=== PATIENT | female | born 1940 | race Caucasian/White ===

== ENCOUNTER → 2016-05-18 | Outpatient (CLI) | payer OTHER, MEDICARE ==
[~2016-05-18] MED LIST: AMLO-114 PO; ASPEC81 PO; ASPI1TAB48 PO; ASPI81TA28 PO; CALC500C70 PO; CARV3.12 PO; CARV3.122 PO; CHOL100010 PO; CHOL1TAB42 PO; DOCU100T7 PO; FLUO20CA35 PO; FURO-85 PO; GLCSR750 PO; LOSA1TAB PO; LSX10 PO; METF750T PO; MULT-506 PO; POTA10CA28 PO; POTA10TA30 PO; SIMV20TA2 PO; SOLI10TA2 PO
[2016-05-18 12:54] LABS: ESTIMATED AVERAGE GLUCOSE 163 mg/dl; HA1C FLAG Normal (Normal)
[2016-05-18 12:56] LABS: BLOOD UREA NITROGEN 11 mg/dl (7-18); BUN/CREATININE RATIO 14.5 (10-20); CALCIUM 9.4 mg/dl (8.5-10.1); CARBON DIOXIDE 31 mmol/L (21-32); CHLORIDE 107 mmol/L (98-107); CREATININE 0.73 mg/dl (0.60-1.20); GLUCOSE 141 mg/dl (70-99); POTASSIUM 4.3 mmol/L (3.5-5.1); SODIUM 144 mmol/L (136-145)
[2016-05-18 13:01] LABS: CHOLESTEROL 169 mg/dl (0-200); CHOLESTEROL/HDL RATIO 2.8; HDL CHOLESTEROL 61 mg/dl; LDL CHOLESTEROL CALCULATED 88 mg/dl; TRIGLYCERIDES 102 mg/dl (0-150); VERY LOW DENSITY LIPOPROT CALC 20 mg/dl
== END | disposition home or self-care (01) ==
LOC: C.LABPVFM 08:05
PROVIDERS: ATTEND Family Medicine
DX: E11.9 Type 2 diabetes mellitus without complications (principal)

== ENCOUNTER → 2016-06-07 | Outpatient (CLI) | payer OTHER, MEDICARE ==
--- NOTE | 2016-06-08 14:34 | MAMMOGRAPHY REPORT ---
BILATERAL DIGITAL SCREENING MAMMOGRAM WITH CAD: 06/07/2016 CLINICAL HISTORY: Routine screening. Patient has no complaints. TECHNIQUE: Bilateral CC and MLO views were obtained. Current study was also evaluated with a Comput er Aided Detection (CAD) system. COMPARISON: Comparison is made to exams dated: 02/12/2009 mammogram, 12/29/2006 mammogram, and 10/13 mammogram. BREAST COMPOSITION: The tissue of both breasts is almost entirely fatty. FINDINGS: A linear scar marker overlies the 12:00 middle one third of the right breast. There are s cattered benign-appearing calcifications in the breasts. No new suspicious mass, architectural dist ortion or cluster of microcalcifications is seen. IMPRESSION: ACR BI-RADS CATEGORY 1: NEGATIVE There is no mammographic evidence of malignancy. A 1 year screening mammogram is recommended. The p atient will receive written notification of the results. Approximately 10% of breast cancers are not detected with mammography. A negative mammographic repor t should not delay biopsy if a clinically suggestive mass is present. Felicia Del Cid M.D. ay/:06/07/2016 17:00:13 Adjunct Faculty Mathematics Department: Pia CHAUDHARY(Erika)(M), [facility] letter sent: Normal 1/2 BI-RADS Code: ACR BI-RADS Category 1: Negative
== END | disposition home or self-care (01) ==
LOC: C.MAMM 13:14
PROVIDERS: ATTEND Family Medicine
DX: Z12.31 Encounter for screening mammogram for malignant neoplasm of breast (principal)

== ENCOUNTER → 2016-10-22 | Outpatient (CLI) | payer OTHER, MEDICARE ==
[~2016-10-22] MED LIST changes: -ASPI81TA28 PO; -CARV3.122 PO; -CHOL1TAB42 PO; -FURO-85 PO; -METF750T PO; -POTA10CA28 PO
[2016-10-22 14:24] LABS: BLOOD UREA NITROGEN 17 mg/dl (7-18); BUN/CREATININE RATIO 22.5 (10-20); CALCIUM 9.2 mg/dl (8.5-10.1); CARBON DIOXIDE 31 mmol/L (21-32); CHLORIDE 105 mmol/L (98-107); CREATININE 0.75 mg/dl (0.60-1.20); GLUCOSE 117 mg/dl (70-99); POTASSIUM 4.6 mmol/L (3.5-5.1); SODIUM 141 mmol/L (136-145)
[2016-10-22 14:25] LABS: ESTIMATED AVERAGE GLUCOSE 148 mg/dl; HA1C FLAG Normal (Normal)
== END | disposition home or self-care (01) ==
LOC: C.LABPVFM 09:48
PROVIDERS: ATTEND Family Medicine
DX: E11.9 Type 2 diabetes mellitus without complications (principal)

== ENCOUNTER 2017-01-06 11:13 | Emergency (ER) | payer OTHER, MEDICARE ==
[2017-01-06] MEDS ORDERED: POTA10CA28 PO (11:42)
[2017-01-06] MEDS ORDERED: CARV3.122 PO (11:42)
[2017-01-06] MEDS ORDERED: AMLO-114 PO (11:42)
[2017-01-06] MEDS ORDERED: SIMV20TA2 PO (11:42)
[2017-01-06] MEDS ORDERED: ASPI81TA28 PO (11:42)
[2017-01-06] MEDS ORDERED: CHOL1TAB42 PO (11:42)
[2017-01-06] MEDS ORDERED: FURO-85 PO (11:42)
[2017-01-06] MEDS ORDERED: METF750T PO (11:42)
[2017-01-06] MEDS ORDERED: HYDROmorphone INJ 2 MG/ML SYR/VIAL IM STA (12:15)
[2017-01-06] MEDS ORDERED: ONDANSETRON 4MG OD TAB PO STA (12:15)
[2017-01-06 12:37] LABS: URINE APPEARANCE CLEAR (CLEAR); URINE BILIRUBIN NEG (NEG); URINE COLOR YELLOW; URINE NITRITE NEG (NEG); URINE SPECIFIC GRAVITY 1.011 (1.000-1.030); UROBILINOGEN NEG (NEG)
[2017-01-06 12:38] LABS: URINE EPITHELIAL CELL AUTO 0-5 /lpf (0-5)
[2017-01-06 12:39] LABS: MANUAL MICROSCOPIC REQUIRED? NO; REVIEW REQ? NO; ZZUR CULT IF INDIC CLEAN CATCH NO
--- NOTE | 2017-01-06 12:41 | EMERGENCY ROOM VISIT NOTE ---
History Report prepared by Ana: Saturnino Carrillo Under the Supervision of: Dr. Dennis Garcia M.D. First contact with patient: 12:08 Chief Complaint: BACK PAIN Stated Complaint: BACK PAIN FROM FALL History of Present Illness The patient is a 76 year old female who presents to the Emergency Room with complaints of worsening left buttock pain beginning two days ago. The patient states she fell two days ago, and hit her back and left buttock. She reports the pain is burning and stabbing. The patient notes she has been taking Excedrin and using patches for pain, but nothing is working. She states she typically ambulates without difficulty using a cane. The patient reports she is not getting around the house, and it hurts to walk. She notes she is nauseous from the discomfort. Source of History: patient Onset: 2 days ago Position: buttock (left) Quality: burning, stabbing Timing: worsening Associated Symptoms: + nausea Note: Associated symptoms: difficultly ambulating Review of Systems See HPI for pertinent positives & negatives. A total of 10 systems reviewed and were otherwise negative. Past Medical & Surgical Medical Problems: (1) Benign essential hypertension (2) Diabetes mellitus (3) Hypercholesterolemia (4) Splenectomy Family History Cancer Heart disease Stroke Social History Smoking Status: Never Smoker Alcohol Use: none Marital Status: Housing Status: lives with family Current/Historical Medications Scheduled Amlodipine (Norvasc), 10 MG PO DAILY Aspirin (Aspirin Ec), 81 MG PO DAILY Carvedilol (Coreg), 2 TABS PO DAILY Cholecalciferol (Vitamin D), 5,000 UNITS PO DAILY Furosemide (Lasix), 20 MG PO BID Metformin Hcl (Glucophage Er), 3,000 MG PO DAILY Potassium Chloride (Micro-K Ext Rel), 10 MEQ PO DAILY Simvastatin (Zocor), 10 MG PO DAILY Allergies Coded Allergies: BEE STING (Unverified Allergy, Intermediate, ., 01/06/17) Physical Exam Vital Signs Date Time Temp Pulse Resp B/P (MAP) Pulse Ox O2 Delivery O2 Flow Rate FiO2 01/06/17 15:37 36.7 56 16 217/73 97 01/06/17 14:57 56 16 217/73 97 Room Air 01/06/17 13:15 55 20 125/48 94 Room Air 01/06/17 11:21 36.7 58 18 151/68 97 Room Air Physical Exam GENERAL: Patient is a healthy-appearing well-nourished 76 year old female. HEAD: Normocephalic atraumatic EYES: Ocular movements intact pupils equal and react to light OROPHARYNX mucous membranes are moist no exudates present no erythema or edema present NECK: Supple no nuchal rigidity CHEST: Good equal expansion LUNGS: Clear and equal to auscultation CARDIAC: Normal S1 and S2 ABDOMEN: Soft nontender no guarding BACK: Tender at the L1 - L2 area. EXTREMITIES: No pain upon palpation normal muscle strength in all groups no clubbing cyanosis or edema NEURO: Patient is following commands and answering questions appropriately. Alert and oriented x3 Cranial Nerves 2-12 grossly intact Medical Decision & Procedures ER Provider Diagnostic Interpretation: Radiology results as stated below per my review and radiologist interpretation: PELVIS NO IV/ORAL CONT (CT) CLINICAL HISTORY: Pt c/o b/l leg pain pain TECHNIQUE: Transaxial acquisition with multi axial reformatted images COMPARISON STUDY: 08/28/2013. Prior total right hip arthroplasty. Good contact between prosthetic and underlying bone. Moderate degenerative change of all remaining osseous structures. No well-defined acute abnormality. Lucency left lateral superior endplate L3 unchanged from the prior exam. This appears be a benign hemangioma. Degenerative change of the intervertebral discs as well as posterior elements throughout. No well-defined acute bony abnormality. The bladder is midline. Bowel pattern is nonobstructive. FINDINGS: Chronic, postoperative, and degenerative change. No acute process. IMPRESSION: The above report was generated using voice recognition software. It may contain grammatical, syntax or spelling errors. Electronically signed by: Ramo Moore M.D. 01/06/2017 1:26 PM Dictated Date/Time: 01/06/2017 1:[address] SCAN OF THE LUMBAR SPINE WITHOUT IV CONTRAST CLINICAL HISTORY: Fall with low back pain. COMPARISON STUDY: Radiographs of the lumbar spine dated 08/18/2010. TECHNIQUE: CT scan of the lumbar spine is performed from the lower thoracic spine to the sacrum. Images are reviewed in the axial, sagittal, and coronal planes. IV contrast was not administered for this examination. A dose lowering technique was utilized adhering to the principles of ALARA. FINDINGS: The skeletal structures are osteopenic. There is a nondistracted fracture partially visualized involving the anterior/inferior aspect of the T11 vertebral body. This is best seen on axial image #9. There is also a minimally distracted fracture of the left L1 transverse process as well as a nondistracted left L2 transverse process fracture. No additional fracture is identified. Vertebral body height and alignment are maintained throughout the lumbar spine. There is lumbar dextrocurvature. A large hemangioma is seen in the body of L3. No lytic or blastic lesions are seen. Advanced facet arthropathy is seen in the lower lumbar region. There are anterior and lateral marginal osteophytes noted throughout. No spondylolysis is identified. The spinous processes are intact. There is advanced degenerative disc space narrowing with endplate sclerosis seen at L3-L4 and L4-L5. Mild to moderate disc space narrowing is seen at the remaining lumbar levels. Posterior disc osteophyte complexes are seen at all levels from T12 -L1 through L4-L5. These likely contribute to multilevel acquired compromise of the central canal. The visualized sacrum and bony pelvis are intact. Degenerative change is noted in the sacroiliac joints. There is fatty atrophy of the paraspinous musculature. Advanced atherosclerotic calcification and mild ectasia is noted in the abdominal aorta. There are left renal calculi versus cortical calcifications. There are healed appearing left posterior rib fractures. IMPRESSION: 1. There is a nondistracted fracture partially visualized involving the anterior/inferior aspect of the T11 vertebral body. 2. There are acute left transverse process fractures of L1 and L2. 3. Osteopenia with lumbosacral spondylosis and scoliosis as above. Electronically signed by: Chad Horan M.D. 01/06/2017 1:34 PM Dictated Date/Time: 01/06/2017 1:21 PM R FEMUR 2 VIEWS ROUTINE CLINICAL HISTORY: Right leg pain following fall. COMPARISON: CT of the abdomen and pelvis September 17, 2014. FINDINGS: Alignment of the total right hip arthroplasty is anatomic. There is heterotopic ossification. There is no acute fracture of the right femur. Hardware is intact. There is no radiographic evidence of loosening. IMPRESSION: 1. No acute fracture of the right femur. 2. Status post total right hip arthroplasty. No periprosthetic fracture. Hardware intact. Electronically signed by: Miguel Fleming M.D. 01/06/2017 1:43 PM Dictated Date/Time: 01/06/2017 1:41 PM L FEMUR 2 VIEWS ROUTINE CLINICAL HISTORY: Pt c/o left leg pain pain COMPARISON: None. DISCUSSION: Moderate degenerative change left hip and left knee. Mild calcific trochanteric bursitis left hip. No evidence for acetabular protrusion. No abnormal depressed reaction. There is no evidence for soft tissue swelling. IMPRESSION: Moderate degenerative change of the left hip and left knee. Moderate calcific trochanteric bursitis left hip. No acute process. The above report was generated using voice recognition software. It may contain grammatical, syntax or spelling errors. Electronically signed by: Ramo Moore M.D. 01/06/2017 1:44 PM Dictated Date/Time: 01/06/2017 1:40 PM THORACIC SPINE WITHOUT CT DOSE: 1204.65 mGy.cm HISTORY: Trauma Pt c/o T11 fracture TECHNIQUE: Multiaxial CT images of the thoracic spine were performed and reformatted in the sagittal and coronal plane without the use of contrast. A dose lowering technique was utilized adhering to the principles of ALARA. COMPARISON: None. FINDINGS: Generalized degenerative disc change throughout the entire thoracic region. Nondisplaced cortical fractures left transverse processes of L1 and L2. Very slight wedge deformity of the anterior inferior endplate T11. No evidence for compromise of the vertebral body height of the posterior aspects of the vertebral bodies. Degenerative changes of the posterior and lateral elements throughout. No additional acute bony abnormalities appreciated. IMPRESSION: 1. Nondisplaced cortical fractures left transverse processes at L1 and L2. 2. Very subtle slight wedge deformity anterior inferior endplate T11. 3. No compromise of the spinal canal or neural foramina 4. Generalized degenerative change throughout the entire thoracic region. The above report was generated using voice recognition software. It may contain grammatical, syntax or spelling errors. Electronically signed by: Ramo Moore M.D. 01/06/2017 2:24 PM Dictated Date/Time: 01/06/2017 2:18 PM Laboratory Results Test 01/06/17 11:55 Urine Color YELLOW Urine Appearance CLEAR (CLEAR) Urine pH 6.0 (4.5-7.5) Urine Specific Emerson 1.011 (1.000-1.030) Urine Protein NEG (NEG) Urine Glucose (UA) NEG (NEG) Urine Ketones NEG (NEG) Urine Occult Blood NEG (NEG) Urine Nitrite NEG (NEG) Urine Bilirubin NEG (NEG) Urine Urobilinogen NEG (NEG) Urine Leukocyte Esterase NEG (NEG) Urine WBC (Auto) 0 /hpf (0-5) Urine RBC (Auto) 0-4 /hpf (0-4) Urine Hyaline Casts (Auto) 0 /lpf (0-5) Urine Epithelial Cells (Auto) 0-5 /lpf (0-5) Urine Bacteria (Auto) NEG (NEG) Labs reviewed by ED physician. Medications Administered Medications (Trade) Dose Ordered Sig/Noble Route Start Time Stop Time Status Last Admin Dose Admin Hydromorphone HCl (Dilaudid Inj) 1 mg NOW STAT IM 01/06/17 12:15 01/06/17 12:21 DC 01/06/17 12:28 1 MG Ondansetron HCl (Zofran Odt) 4 mg ONE STAT PO 01/06/17 12:15 01/06/17 12:21 DC 01/06/17 12:28 4 MG Hydromorphone HCl (Dilaudid Inj) 1 mg NOW STAT IM 01/06/17 14:37 01/06/17 14:38 DC 01/06/17 14:57 1 MG ED Course 1210: Past medical records reviewed. The patient was evaluated in room B11B. A complete history and physical examination was performed. 1215: Ordered Ondansetron HCl 4mg PO, Hydromorphone HCl 1mg IM 1338: I reevaluated the patient. She is feeling better. 1358: I discussed the patient's case with Dr. Bonilla, [facility]. He recommended the patient go to rehab and follow up as an outpatient. Medical Decision Differential diagnosis: Etiologies such as musculoskeletal, disc herniation, fracture, aortic disease, metastatic disease, cord compression, discitis, infection, renal colic, gastrointestinal, acute exacerbation of chronic back pain, sciatica, cauda equina, as well as others were entertained. This is a 76-year-old female who presents emergency department complaining of back pain after a fall at home. The patient was sent for CAT scan of her lumbar spine. This is concerning for fractures at T11 as well as transverse process fractures. The patient was given Dilaudid. Repeat examination revealed improvement patient's pain. I'm concerned that the patient is going to fall again specially based on the fact that she is still having pain. I did discuss her case with [facility] who felt that the patient's symptoms could be controlled with pain control. I did discuss sending the patient to rehabilitation Center. For this reason she was discussed with case management who also talked independently with the patient. The patient was accepted at [facility]. Medication Reconcilliation Current Medication List: was personally reviewed by me Blood Pressure Screening Patient's blood pressure: Elevated blood pressure Blood pressure disposition: Elevated BP felt to be situational Consults Time Called: 1339 Consulting Physician: Dr. Bonilla, [facility] Returned Call: [phone] I discussed the patient's case with Dr. Bonilla, [facility]. He recommended the patient go to rehab and follow up as an outpatient. Impression Primary Impression: Fall Additional Impressions: Fracture of L1 vertebra L3 vertebral fracture T11 vertebral fracture Scribe Attestation The scribe's documentation has been prepared under my direction and personally reviewed by me in its entirety. I confirm that the note above accurately reflects all work, treatment, procedures, and medical decision making performed by me. Departure Information Dispostion Rehab Inpatient Facility Referrals Clement Early M.D. (PCP) Patient Instructions My [facility] Problem Qualifiers Primary Impression: Fall Encounter type: initial encounter Qualified Codes: W19.XXXA - Unspecified fall, initial encounter Additional Impressions: Fracture of L1 vertebra Encounter type: initial encounter Fracture type: closed Fracture morphology : unspecified fracture morphology Qualified Codes: S32.019A - Unspecified fracture of first lumbar vertebra, initial encounter for closed fracture L3 vertebral fracture Encounter type: initial encounter Fracture type: closed Fracture morphology : unspecified fracture morphology Qualified Codes: S32.039A - Unspecified fracture of third lumbar vertebra, initial encounter for closed fracture T11 vertebral fracture Encounter type: initial encounter Fracture type: closed Fracture morphology : wedge compression Qualified Codes: S22.080A - Wedge compression fracture of t11-T12 vertebra, initial encounter for closed fracture
--- NOTE | 2017-01-06 13:28 | DIAGNOSTIC IMAGING REPORT ---
PELVIS NO IV/ORAL CONT (CT) CLINICAL HISTORY: Pt c/o b/l leg pain pain TECHNIQUE: Transaxial acquisition with multi axial reformatted images COMPARISON STUDY: 08/28/2013. Prior total right hip arthroplasty. Good contact between prosthetic and underlying bone. Moderate degenerative change of all remaining osseous structures. No well-defined acute abnormality. Lucency left lateral superior endplate L3 unchanged from the prior exam. This appears be a benign hemangioma. Degenerative change of the intervertebral discs as well as posterior elements throughout. No well-defined acute bony abnormality. The bladder is midline. Bowel pattern is nonobstructive. FINDINGS: Chronic, postoperative, and degenerative change. No acute process. IMPRESSION: The above report was generated using voice recognition software. It may contain grammatical, syntax or spelling errors. Electronically signed by: Ramo Moore M.D. 01/06/2017 1:26 PM Dictated Date/Time: 01/06/2017 1:22 PM
--- NOTE | 2017-01-06 13:36 | DIAGNOSTIC IMAGING REPORT ---
CT SCAN OF THE LUMBAR SPINE WITHOUT IV CONTRAST CLINICAL HISTORY: Fall with low back pain. COMPARISON STUDY: Radiographs of the lumbar spine dated 08/18/2010. TECHNIQUE: CT scan of the lumbar spine is performed from the lower thoracic spine to the sacrum. Images are reviewed in the axial, sagittal, and coronal planes. IV contrast was not administered for this examination. A dose lowering technique was utilized adhering to the principles of ALARA. FINDINGS: The skeletal structures are osteopenic. There is a nondistracted fracture partially visualized involving the anterior/inferior aspect of the T11 vertebral body. This is best seen on axial image #9. There is also a minimally distracted fracture of the left L1 transverse process as well as a nondistracted left L2 transverse process fracture. No additional fracture is identified. Vertebral body height and alignment are maintained throughout the lumbar spine. There is lumbar dextrocurvature. A large hemangioma is seen in the body of L3. No lytic or blastic lesions are seen. Advanced facet arthropathy is seen in the lower lumbar region. There are anterior and lateral marginal osteophytes noted throughout. No spondylolysis is identified. The spinous processes are intact. There is advanced degenerative disc space narrowing with endplate sclerosis seen at L3-L4 and L4-L5. Mild to moderate disc space narrowing is seen at the remaining lumbar levels. Posterior disc osteophyte complexes are seen at all levels from T12 -L1 through L4-L5. These likely contribute to multilevel acquired compromise of the central canal. The visualized sacrum and bony pelvis are intact. Degenerative change is noted in the sacroiliac joints. There is fatty atrophy of the paraspinous musculature. Advanced atherosclerotic calcification and mild ectasia is noted in the abdominal aorta. There are left renal calculi versus cortical calcifications. There are healed appearing left posterior rib fractures. IMPRESSION: 1. There is a nondistracted fracture partially visualized involving the anterior/inferior aspect of the T11 vertebral body. 2. There are acute left transverse process fractures of L1 and L2. 3. Osteopenia with lumbosacral spondylosis and scoliosis as above. Electronically signed by: Chad Horan M.D. 01/06/2017 1:34 PM Dictated Date/Time: 01/06/2017 1:21 PM
--- NOTE | 2017-01-06 13:44 | DIAGNOSTIC IMAGING REPORT ---
R FEMUR 2 VIEWS ROUTINE CLINICAL HISTORY: Right leg pain following fall. COMPARISON: CT of the abdomen and pelvis September 17, 2014. FINDINGS: Alignment of the total right hip arthroplasty is anatomic. There is heterotopic ossification. There is no acute fracture of the right femur. Hardware is intact. There is no radiographic evidence of loosening. IMPRESSION: 1. No acute fracture of the right femur. 2. Status post total right hip arthroplasty. No periprosthetic fracture. Hardware intact. Electronically signed by: Miguel Fleming M.D. 01/06/2017 1:43 PM Dictated Date/Time: 01/06/2017 1:41 PM
--- NOTE | 2017-01-06 13:45 | DIAGNOSTIC IMAGING REPORT ---
L FEMUR 2 VIEWS ROUTINE CLINICAL HISTORY: Pt c/o left leg pain pain COMPARISON: None. DISCUSSION: Moderate degenerative change left hip and left knee. Mild calcific trochanteric bursitis left hip. No evidence for acetabular protrusion. No abnormal depressed reaction. There is no evidence for soft tissue swelling. IMPRESSION: Moderate degenerative change of the left hip and left knee. Moderate calcific trochanteric bursitis left hip. No acute process. The above report was generated using voice recognition software. It may contain grammatical, syntax or spelling errors. Electronically signed by: Ramo Moore M.D. 01/06/2017 1:44 PM Dictated Date/Time: 01/06/2017 1:40 PM
--- NOTE | 2017-01-06 14:25 | DIAGNOSTIC IMAGING REPORT ---
THORACIC SPINE WITHOUT CT DOSE: 1204.65 mGy.cm HISTORY: Trauma Pt c/o T11 fracture TECHNIQUE: Multiaxial CT images of the thoracic spine were performed and reformatted in the sagittal and coronal plane without the use of contrast. A dose lowering technique was utilized adhering to the principles of ALARA. COMPARISON: None. FINDINGS: Generalized degenerative disc change throughout the entire thoracic region. Nondisplaced cortical fractures left transverse processes of L1 and L2. Very slight wedge deformity of the anterior inferior endplate T11. No evidence for compromise of the vertebral body height of the posterior aspects of the vertebral bodies. Degenerative changes of the posterior and lateral elements throughout. No additional acute bony abnormalities appreciated. IMPRESSION: 1. Nondisplaced cortical fractures left transverse processes at L1 and L2. 2. Very subtle slight wedge deformity anterior inferior endplate T11. 3. No compromise of the spinal canal or neural foramina 4. Generalized degenerative change throughout the entire thoracic region. The above report was generated using voice recognition software. It may contain grammatical, syntax or spelling errors. Electronically signed by: Ramo Moore M.D. 01/06/2017 2:24 PM Dictated Date/Time: 01/06/2017 2:18 PM
[2017-01-06] MEDS ORDERED: HYDROmorphone INJ 1 MG/ML SYR IM STA (14:37)
[2017-01-06 15:37] VITALS: BP 217/73; PULSE 56; TEMP 36.7; O2SAT 97
== END 2017-01-06 15:38 ==
LOC: C.EDB 11:14
DX: S32.019A Unspecified fracture of first lumbar vertebra, initial encounter for closed fracture (principal); S32.039A Unspecified fracture of third lumbar vertebra, initial encounter for closed fracture; S22.080A Wedge compression fracture of T11-T12 vertebra, initial encounter for closed fracture; W19.XXXA Unspecified fall, initial encounter; Y92.019 Unspecified place in single-family (private) house as the place of occurrence of the external cause; I10 Essential (primary) hypertension; E11.9 Type 2 diabetes mellitus without complications; E78.00 Pure hypercholesterolemia, unspecified; Z80.9 Family history of malignant neoplasm, unspecified; Z82.49 Family history of ischemic heart disease and other diseases of the circulatory system; Z79.82 Long term (current) use of aspirin; Z79.899 Other long term (current) drug therapy

== ENCOUNTER → 2017-03-27 | Outpatient (CLI) | payer OTHER, MEDICARE ==
[~2017-03-27] MED LIST changes: -ASPEC81 PO; -ASPI1TAB48 PO; +ASPI81TA28 PO; -CALC500C70 PO; -CARV3.12 PO; +CARV3.122 PO; -CHOL100010 PO; +CHOL1TAB42 PO; -DOCU100T7 PO; -FLUO20CA35 PO; +FURO-85 PO; -GLCSR750 PO; -LOSA1TAB PO; -LSX10 PO; +METF750T PO; -MULT-506 PO; +POTA10CA28 PO; -POTA10TA30 PO; -SOLI10TA2 PO
[2017-03-27 12:47] LABS: ALBUMIN 3.5 gm/dl (3.4-5.0); ALT/SGPT 30 U/L (12-78); BLOOD UREA NITROGEN 12 mg/dl (7-18); CALCIUM 9.3 mg/dl (8.5-10.1); CARBON DIOXIDE 30 mmol/L (21-32); CREATININE 0.64 mg/dl (0.60-1.20); GLUCOSE 141 mg/dl (70-99); POTASSIUM 4.5 mmol/L (3.5-5.1); SODIUM 140 mmol/L (136-145)
[2017-03-27 12:50] LABS: ALKALINE PHOSPHATASE 62 U/L (45-117); AST/SGOT 22 U/L (15-37); CHOLESTEROL 171 mg/dl (0-200); LDL CHOLESTEROL CALCULATED 77 mg/dl; TOTAL PROTEIN 6.7 gm/dl (6.4-8.2)
[2017-03-27 13:03] LABS: HEMOGLOBIN A1C 6.8 % (4.5-5.6)
[2017-03-27 17:55] LABS: CREATININE RANDOM URINE < 13.0 mg/dl
== END | disposition home or self-care (01) ==
LOC: C.LABPVFM 07:52
PROVIDERS: ATTEND Family Medicine
DX: E11.9 Type 2 diabetes mellitus without complications (principal); I10 Essential (primary) hypertension; E78.5 Hyperlipidemia, unspecified; Z98.890 Other specified postprocedural states; R32 Unspecified urinary incontinence; Z13.820 Encounter for screening for osteoporosis

== ENCOUNTER → 2017-04-18 | Outpatient (CLI) | payer OTHER | END | disposition home or self-care (01) | LOC: C.MAMM 08:19 | PROVIDERS: ATTEND Family Medicine | DX: Z13.820 Encounter for screening for osteoporosis (principal); M85.852 Other specified disorders of bone density and structure, left thigh ==

== ENCOUNTER → 2017-04-25 | Outpatient (CLI) | payer OTHER ==
--- NOTE | 2017-04-25 13:36 | DIAGNOSTIC IMAGING REPORT ---
KUB HISTORY: Acute abdominal swelling ABD SWELLING MASS OR LUMP COMPARISON: CT abdomen 10/13/2015 FINDINGS: The bowel gas pattern is non-obstructive. Moderate volume of formed stool is noted within the rectum and sigmoid colon. There is no organomegaly. The renal shadows are partially obscured by bowel gas. 4 mm linear calcification of the inferior pole right kidney redemonstrated. No ureteral calculi. Surgical clips project over the left upper quadrant of the abdomen. No pneumoperitoneum or pneumatosis. No fracture. There is convex left curvature of the lumbar spine with severe multilevel intervertebral disc space narrowing and endplate spurring. Right hip arthroplasty partially imaged. IMPRESSION: 1. Nonobstructive bowel gas pattern. 2. 4 mm linear calcification of the inferior pole right kidney redemonstrated. Electronically signed by: Leonardo Yap M.D. 04/25/2017 1:35 PM Dictated Date/Time: 04/25/2017 1:31 PM
== END | disposition home or self-care (01) ==
LOC: C.RADPV 13:17
PROVIDERS: ATTEND Family Medicine
DX: N20.0 Calculus of kidney (principal); R19.00 Intra-abdominal and pelvic swelling, mass and lump, unspecified site

== ENCOUNTER → 2017-04-28 | Outpatient (CLI) | payer OTHER ==
--- NOTE | 2017-04-28 13:02 | DIAGNOSTIC IMAGING REPORT ---
ABDOMEN NO IV/ORAL CONT (CT) CLINICAL HISTORY: 77 years-old Female presenting with R19.00 Abdominal swelling, mass, or lumpR93.8 Abnormal finding o. TECHNIQUE: Multidetector CT of the abdomen was performed without the use of intravenous contrast. IV contrast: None. A dose lowering technique was used consistent with the principles of ALARA (as low as reasonably achievable). COMPARISON: 10/13/2015. CT DOSE (mGy.cm): The estimated cumulative dose is 787.11 mGycm. 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 Lung bases: Mosaic attenuation could suggest small airways disease. Multichamber enlargement of the heart. Mitral annular calcification. Epicardial pacing wire noted. No pericardial or pleural effusion. Liver: Coarse parenchymal calcifications noted in the liver dome anteriorly, unchanged. Biliary: No gross biliary ductal dilatation allowing for noncontrast technique. Normal gallbladder. Pancreas: Postsurgical changes of distal pancreatectomy. Nonspecific ovoid 3 cm dense collection with peripheral calcification, slightly decreased in size and increased in density since the prior exam, likely postsurgical. Spleen: Surgically absent. Adrenal glands: Nodular thickening in the left adrenal gland. This appearance is unchanged from prior. Right adrenal gland normal. Kidneys and ureters: Parenchymal calcification noted in the right kidney. No nephrolithiasis. No hydronephrosis. Nonspecific perinephric fat stranding greater on the left. Bowel: Normal. No bowel obstruction. Peritoneal cavity: No free fluid or intraperitoneal gas. Lymph nodes: No gross lymphadenopathy allowing for noncontrast technique. Vasculature: Atherosclerosis of the normal caliber abdominal aorta. Abdominal wall: Postsurgical changes of the epigastrium. Additionally, focal peritoneal defect measuring 2.5 cm in width in the left paramedian ventral supraumbilical abdomen. At this site, there is a fat-containing hernia, which measures approximately 3.5 cm in diameter. No additional ventral hernias evident. Postsurgical changes from prior ventral hernia repair may be present immediately adjacent and inferior to this site. Musculoskeletal: Degenerative changes of the spine. IMPRESSION: 1. Fat-containing ventral hernia at the left paramedian supraumbilical abdomen. This is immediately adjacent and superior to prior ventral hernia repair 2. 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 No evidence of recurrent disease. Electronically signed by: Clement Charles M.D. 04/28/2017 1:01 PM Dictated Date/Time: 04/28/2017 12:52 PM
== END | disposition home or self-care (01) ==
LOC: C.CTS 11:41
PROVIDERS: ATTEND Family Medicine
DX: R19.00 Intra-abdominal and pelvic swelling, mass and lump, unspecified site (principal); R93.8 Abnormal findings on diagnostic imaging of other specified body structures

== ENCOUNTER → 2017-06-08 | Outpatient (CLI) | payer OTHER ==
--- NOTE | 2017-06-12 07:47 | MAMMOGRAPHY REPORT ---
BILATERAL DIGITAL SCREENING MAMMOGRAM TOMOSYNTHESIS WITH CAD: 06/08/2017 CLINICAL HISTORY: Routine screening. TECHNIQUE: Breast tomosynthesis in addition to standard 2D mammography was performed. Current study was also evaluated with a Computer Aided Detection (CAD) system. COMPARISON: Comparison is made to exams dated: 06/07/2016 mammogram - [facility] an d 02/12/2009 mammogram. BREAST COMPOSITION: The tissue of both breasts is almost entirely fatty. FINDINGS: No suspicious masses, calcifications, or areas of architectural distortion are noted in ei ther breast. There has been no significant interval change compared to prior exams. Scattered bilate ral benign-appearing calcifications are again noted. IMPRESSION: ACR BI-RADS CATEGORY 2: BENIGN There is no mammographic evidence of malignancy. A 1 year screening mammogram is recommended. The pa tient will receive written notification of the results. Approximately 10% of breast cancers are not detected with mammography. A negative mammographic report should not delay biopsy if a clinically suggestive mass is present. Magaly Luis M.D. ah/:06/08/2017 14:33:10 [employer]: Carito Georges RT(R)(M), [facility] letter sent: Normal 1/2 BI-RADS Code: ACR BI-RADS Category 2: Benign
== END | disposition home or self-care (01) ==
LOC: C.MAMM 13:19
PROVIDERS: ATTEND Family Medicine
DX: Z12.31 Encounter for screening mammogram for malignant neoplasm of breast (principal)

== ENCOUNTER 2018-09-01 04:19 | Inpatient (IN) ==
[2018-09-01] MEDS ORDERED: SODIUM CHLORIDE 0.9% 1000ML 500 ML IV ONE ×2 (04:38→05:53)
[2018-09-01] MEDS ORDERED: ACETAMINOPHEN 500 MG TAB PO STA (04:38)
--- NOTE | 2018-09-01 04:42 | Emergency Department Note ---
History of Present Illness General Chief complaint: Illness Stated complaint: SHAKING History of Present Illness This 78-year-old presents to the ER complaining of fever Location: Generalized Quality: Feverish Severity: Moderate Duration: Tonight Timing: Tonight Context: Patient woke from sleep shaking feeling weak and came in Modifying factors: better with nothing; worse with activity Patient states yesterday she felt fine. Tonight she woke from sleep and felt very sick. They did not have a thermometer. brought her in. Patient states that is hard for her to concentrate. states that she is acting off from baseline. Patient denies chest pain, dyspnea, cough, congestion, sore throat, abdominal pain, vomiting, diarrhea, urinary symptoms. No recent antibiotics. Patient reports heart cath last month was normal. Home Medications Home Medications Medication Instructions Recorded Confirmed Type aspirin 81 mg PO DAILY 09/01/18 09/01/18 History carvedilol 0 mg PO BID 09/01/18 09/01/18 History cholecalciferol (vitamin D3) 5,000 unit PO DAILY 09/01/18 09/01/18 History [Vitamin D3] furosemide [Lasix] 20 mg PO DAILY 09/01/18 09/01/18 History losartan 25 mg PO BID 09/01/18 09/01/18 History metformin 1,000 mg PO BID 09/01/18 09/01/18 History potassium chloride 10 meq PO DAILY 09/01/18 09/01/18 History simvastatin 0 mg PO HS 09/01/18 09/01/18 History Allergies Allergy/AdvReac Type Severity Reaction Status Date / Time bee venom protein (honey bee) Allergy Intermediate . 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: No Beliefs That Will Affect Care: None marital status: marital status details: live in [place]; 3 sons Current Living Situation: Spouse current occupational status: retired Other Information That Helps Us Care for You: No other: ran a [employer] near [place], [place] Feels Safe at Home: Yes Safety Concerns: Feels Safe At This Time Smoking Status: Former smoker Age Quit Using Tobacco: 56 packs per day: 1 Years Smoked: 30 Do You Dip or Chew Tobacco: No Second Hand Exposure: No Tobacco Cessation Education Requested by Patient: No Hx Alcohol Use: Yes Alcohol type: wine Alcohol Intake Frequency: Holidays/Special Occasions Hx Substance Use: No Review of Systems All systems reviewed & are unremarkable except as noted in HPI & below Physical Exam Vital Signs Vital Signs - 24 hr 09/01/18 04:23 09/01/18 04:42 09/01/18 04:45 Temperature 39.5 C H Temperature Source Oral Sepsis Recent Fever Within 48 Hours Yes Sepsis New/Unexplained Change in Mental Status No Sepsis Action Taken by Nursing No Action Required Pulse Rate 102 H 101 H 101 H Pulse Rate [Apical] Pulse Rate from SpO2 Sensor Pulse Rhythm [Apical] Respiratory Rate 19 29 H 27 H Respiratory Effort / Characteristics Non-Labored Spontaneous Respiratory Depth Normal Respiratory Pattern Blood Pressure 164/80 H 190/115 H Blood Pressure [Right Arm] Blood Pressure Mean 108 140 Blood Pressure Mean [Right Arm] Blood Pressure Position Sitting Pulse Oximetry 91 Oxygen Delivery Method Room Air 09/01/18 04:47 09/01/18 05:00 09/01/18 05:01 Temperature Temperature Source Sepsis Recent Fever Within 48 Hours Sepsis New/Unexplained Change in Mental Status Sepsis Action Taken by Nursing Pulse Rate 101 H 101 H Pulse Rate [Apical] 102 H Pulse Rate from SpO2 Sensor Pulse Rhythm [Apical] Regular Respiratory Rate 20 26 H 28 H Respiratory Effort / Characteristics Non-Labored Spontaneous Respiratory Depth Normal Respiratory Pattern Regular Blood Pressure 180/71 H Blood Pressure [Right Arm] 190/115 H Blood Pressure Mean 107 Blood Pressure Mean [Right Arm] 140 Blood Pressure Position Pulse Oximetry 98 Oxygen Delivery Method Room Air 09/01/18 05:31 09/01/18 05:32 09/01/18 05:37 Temperature Temperature Source Sepsis Recent Fever Within 48 Hours Sepsis New/Unexplained Change in Mental Status Sepsis Action Taken by Nursing Pulse Rate 100 H 99 H Pulse Rate [Apical] 87 Pulse Rate from SpO2 Sensor Pulse Rhythm [Apical] Respiratory Rate 30 H 27 H 16 Respiratory Effort / Characteristics Non-Labored Spontaneous Respiratory Depth Normal Respiratory Pattern Blood Pressure 167/91 H Blood Pressure [Right Arm] 167/91 H Blood Pressure Mean 116 Blood Pressure Mean [Right Arm] 116 Blood Pressure Position Pulse Oximetry 98 Oxygen Delivery Method Room Air 09/01/18 05:46 09/01/18 05:49 09/01/18 06:00 Temperature 37 C Temperature Source Oral Sepsis Recent Fever Within 48 Hours Sepsis New/Unexplained Change in Mental Status Sepsis Action Taken by Nursing Pulse Rate 99 H 100 H Pulse Rate [Apical] Pulse Rate from SpO2 Sensor 99 H 100 H Pulse Rhythm [Apical] Respiratory Rate 26 H 33 H Respiratory Effort / Characteristics Respiratory Depth Respiratory Pattern Blood Pressure 177/81 H 167/89 H Blood Pressure [Right Arm] Blood Pressure Mean 113 115 Blood Pressure Mean [Right Arm] Blood Pressure Position Pulse Oximetry 90 92 Oxygen Delivery Method 09/01/18 06:01 09/01/18 06:12 09/01/18 06:30 Temperature Temperature Source Sepsis Recent Fever Within 48 Hours Sepsis New/Unexplained Change in Mental Status Sepsis Action Taken by Nursing Pulse Rate 100 H 96 H Pulse Rate [Apical] Pulse Rate from SpO2 Sensor 99 H 97 H Pulse Rhythm [Apical] Respiratory Rate 36 H 22 24 Respiratory Effort / Characteristics Respiratory Depth Shallow Respiratory Pattern Blood Pressure 151/74 H Blood Pressure [Right Arm] 167/89 H Blood Pressure Mean 99 Blood Pressure Mean [Right Arm] 115 Blood Pressure Position Pulse Oximetry 91 93 88 L Oxygen Delivery Method Room Air 09/01/18 06:31 09/01/18 07:00 09/01/18 07:01 Temperature Temperature Source Sepsis Recent Fever Within 48 Hours Sepsis New/Unexplained Change in Mental Status Sepsis Action Taken by Nursing Pulse Rate 97 H 96 H 96 H Pulse Rate [Apical] Pulse Rate from SpO2 Sensor 95 H 97 H 96 H Pulse Rhythm [Apical] Respiratory Rate 21 26 H 25 H Respiratory Effort / Characteristics Respiratory Depth Respiratory Pattern Blood Pressure 139/72 Blood Pressure [Right Arm] Blood Pressure Mean 94 Blood Pressure Mean [Right Arm] Blood Pressure Position Pulse Oximetry 85 L 93 94 Oxygen Delivery Method 09/01/18 07:15 09/01/18 07:30 09/01/18 07:31 Temperature Temperature Source Sepsis Recent Fever Within 48 Hours Sepsis New/Unexplained Change in Mental Status Sepsis Action Taken by Nursing Pulse Rate 96 H 95 H Pulse Rate [Apical] Pulse Rate from SpO2 Sensor 96 H 95 H Pulse Rhythm [Apical] Respiratory Rate 25 H 19 Respiratory Effort / Characteristics Non-Labored Spontaneous Respiratory Depth Normal Respiratory Pattern Tachypnea Blood Pressure 144/78 H Blood Pressure [Right Arm] Blood Pressure Mean 100 Blood Pressure Mean [Right Arm] Blood Pressure Position Pulse Oximetry 95 95 Oxygen Delivery Method Room Air 09/01/18 08:00 09/01/18 08:01 09/01/18 08:18 Temperature Temperature Source Sepsis Recent Fever Within 48 Hours Sepsis New/Unexplained Change in Mental Status Sepsis Action Taken by Nursing Pulse Rate 94 H 93 H 97 H Pulse Rate [Apical] Pulse Rate from SpO2 Sensor 93 H 92 H 96 H Pulse Rhythm [Apical] Respiratory Rate 27 H 20 18 Respiratory Effort / Characteristics Respiratory Depth Respiratory Pattern Blood Pressure 129/92 134/67 Blood Pressure [Right Arm] Blood Pressure Mean 104 89 Blood Pressure Mean [Right Arm] Blood Pressure Position Pulse Oximetry 93 95 96 Oxygen Delivery Method 09/01/18 08:19 09/01/18 08:26 Temperature 37.0 C Temperature Source Oral Sepsis Recent Fever Within 48 Hours Sepsis New/Unexplained Change in Mental Status Sepsis Action Taken by Nursing Pulse Rate 96 H Pulse Rate [Apical] Pulse Rate from SpO2 Sensor 97 H Pulse Rhythm [Apical] Respiratory Rate 24 Respiratory Effort / Characteristics Respiratory Depth Respiratory Pattern Blood Pressure Blood Pressure [Right Arm] Blood Pressure Mean Blood Pressure Mean [Right Arm] Blood Pressure Position Pulse Oximetry 98 Oxygen Delivery Method VITALS: Vitals are noted on the nurse's note and reviewed by myself. Vital signs febrile. GENERAL: Pleasant female ill-appearing,nondiaphoretic, well-developed well- nourished. SKIN: The skin was without rashes, erythema, edema, or bruising. There is no tenting of the skin. Capillary reflex less than 2 seconds. HEAD: Normocephalic atraumatic. EARS: External auditory canals clear, tympanic membranes pearly freedman without erythema or effusion bilaterally. EYES: Pupils equal round and reactive to light and accommodation. Conjunctivae without injection, sclerae without icterus. Extraocular movements intact. NOSE: Patent, turbinates without inflammation or discharge. No sinus tendernes s. MOUTH: Mucous membranes mildly dry. Pharynx without erythema or exudate. Uvula midline. Airway patent. Tongue does not deviate. NECK: Supple without nuchal rigidity. No lymphadenopathy. No thyromegaly. Cervical spine is nontender. No JVD. HEART: Regular rate and rhythm LUNGS: Clear to auscultation bilaterally without wheezes, rales or rhonchi. No retractions or accessory muscle use. ABDOMEN: Positive bowel sounds x 4. Normal tympanic percussion. Soft, nontender, without masses or organomegaly. Long sign negative. No guarding or rebound tenderness. No CVA tenderness MUSCULOSKELETAL: No muscle atrophy, erythema, or edema noted. NEURO: Patient was alert and oriented to person place and time. Normal sensation to light and sharp touch. No focal neurological deficits. Course Administered Medications Acetaminophen (Tylenol) 1,000 mg PO Q6H PRN PRN Reason: Pain or Fever Stop: 10/01/18 09:27 Last Admin: 09/01/18 14:14 Dose: 1,000 mg Documented by: [id number] Aspirin (Ecotrin Ectab) 81 mg PO DAILY GUILLAUME Stop: 10/01/18 09:27 Last Admin: 09/01/18 10:14 Dose: 81 mg Documented by: [id number] Carvedilol (Coreg) 12.5 mg PO QAM GUILLAUME Stop: 10/01/18 09:27 Last Admin: 09/01/18 10:14 Dose: 12.5 mg Documented by: [id number] Carvedilol (Coreg) 6.25 mg PO QPM GUILLAUME Stop: 10/01/18 20:59 Last Admin: 09/01/18 21:16 Dose: 6.25 mg Documented by: [id number] Doxycycline Hyclate (Vibramycin) 100 mg PO BID GUILLAUME Stop: 09/03/18 09:59 Last Admin: 09/01/18 21:16 Dose: 100 mg Documented by: [id number] Admin: 09/01/18 10:14 Dose: 100 mg Documented by: [id number] Enoxaparin Sodium (Lovenox) 40 mg SQ Q24H GUILLAUME Stop: 10/01/18 09:59 Last Admin: 09/01/18 10:11 Dose: 40 mg Documented by: [id number] Sodium Chloride (Nss 1000ml) 1,000 mls @ 100 mls/hr IV .Q10H GUILLAUME Stop: 10/01/18 09:27 Last Admin: 09/01/18 21:12 Dose: 100 mls/hr Documented by: [id number] Infusion: 09/01/18 20:15 Dose: 100 mls/hr Documented by: [id number] Admin: 09/01/18 10:15 Dose: 100 mls/hr Documented by: [id number] Ceftriaxone Sodium 2,000 mg/ (Dextrose) 70 mls @ 100 mls/hr IV DAILY GUILLAUME; Protocol Stop: 09/03/18 09:59 Last Infusion: 09/01/18 11:49 Dose: 0 mls/hr Documented by: [id number] Admin: 09/01/18 10:08 Dose: 100 mls/hr Documented by: [id number] Insulin Aspart (Novolog Flexpen) 0 units SC ACHS GUILLAUME Stop: 10/01/18 11:29 Last Admin: 09/01/18 21:15 Dose: Not Given Documented by: [id number] Cosigned by: [id number] Admin: 09/01/18 17:14 Dose: 4 units Documented by: [id number] Cosigned by: [id number] Admin: 09/01/18 12:25 Dose: 6 units Documented by: [id number] Cosigned by: [id number] Potassium Chloride (Klor-Con M10) 10 meq PO DAILY GUILLAUME Stop: 10/01/18 09:27 Last Admin: 09/01/18 10:14 Dose: 10 meq Documented by: [id number] Simvastatin (Zocor) 40 mg PO HS GUILLAUME Stop: 10/01/18 20:59 Last Admin: 09/01/18 21:16 Dose: 40 mg Documented by: [id number] Vitamin D (Vitamin D3) 5,000 units PO DAILY GUILLAUME Stop: 10/01/18 09:27 Last Admin: 09/01/18 10:14 Dose: 5,000 units Documented by: [id number] Discontinued Medications Acetaminophen (Tylenol) 1,000 mg PO NOW STA Stop: 09/01/18 04:39 Last Admin: 09/01/18 04:51 Dose: 1,000 mg Documented by: [id number] Sodium Chloride (Nss 1000ml) 500 mls @ 999 mls/hr IV .Q31M ONE Stop: 09/01/18 05:08 Last Infusion: 09/01/18 06:55 Dose: 0 mls/hr Documented by: [id number] Admin: 09/01/18 04:52 Dose: 999 mls/hr Documented by: [id number] Sodium Chloride (Nss 1000ml) 500 mls @ 999 mls/hr IV .Q31M ONE Stop: 09/01/18 06:23 Last Infusion: 09/01/18 06:55 Dose: 0 mls/hr Documented by: [id number] Admin: 09/01/18 06:13 Dose: 999 mls/hr Documented by: [id number] Piperacillin Sod/Tazobactam Sod (Zosyn) 4.5 gm in 120 mls @ 240 mls/hr IV NOW ONE Stop: 09/01/18 06:25 Last Infusion: 09/01/18 06:56 Dose: 0 mls/hr Documented by: [id number] Admin: 09/01/18 06:09 Dose: 240 mls/hr Documented by: [id number] Sodium Chloride (Nss) 500 mls @ 999 mls/hr IV .Q31M ONE Stop: 09/01/18 09:07 Last Infusion: 09/01/18 11:49 Dose: 0 mls/hr Documented by: [id number] Admin: 09/01/18 09:36 Dose: 999 mls/hr Documented by: [id number] Vancomycin HCl 2,500 mg/ (Sodium Chloride) 550 mls @ 200 mls/hr IV TODAY@1000 ONE Stop: 09/01/18 12:44 Last Infusion: 09/01/18 13:00 Dose: 0 mls/hr Documented by: [id number] Admin: 09/01/18 10:15 Dose: 200 mls/hr Documented by: [id number] Medical Decision Making Medical Records Attestation: I reviewed the patient's medical records. Home Medications Current Medication List: was personally reviewed by me Laboratory Data Attestation: I reviewed the patient's lab results. Result diagrams: 09/01/18 04:54 09/01/18 04:54 Lab Results 09/01/18 09/01/18 09/01/18 Range/Units 04:54 04:54 04:54 WBC 19.34 H (4.8-10.8) K/uL RBC 4.59 (4.2-5.4) M/uL Hgb 13.7 (12.0-16.0) g/dL Hct 40.1 (37-47) % MCV 87.4 (80-100) fL MCH 29.8 (25-34) pg MCHC 34.2 (32-36) g/dL RDW Std Deviation 46.2 (36.4-46.3) fL RDW Coeff of Jose 14.4 (11.5-14.5) % Plt Count 191 (130-400) K/uL MPV 12.1 H (7.4-10.4) fL Immature Gran % (Auto) 0.3 % Neut % (Auto) 84.3 % Lymph % (Auto) 8.1 % Sunflower % (Auto) 6.5 % Eos % (Auto) 0.5 % Baso % (Auto) 0.3 % Immature Gran # (Auto) 0.05 H (0.00-0.02) K/uL Neut # (Auto) 16.32 H (1.4-6.5) K/uL Lymph # (Auto) 1.56 (1.2-3.4) K/uL Sunflower # (Auto) 1.26 H (0.11-0.59) K/uL Eos # (Auto) 0.10 (0-0.5) K/uL Baso # (Auto) 0.05 (0-0.2) K/uL PT 10.5 (9.0-12.0) Seconds INR 1.0 (0.9-1.1) APTT 25.3 (21.0-31.0) Seconds PTT Ratio 0.9 Sodium 137 (136-145) mmol/L Potassium 3.6 (3.5-5.1) mmol/L Chloride 101 (98-107) mmol/L Carbon Dioxide 27 (21-32) mmol/L Anion Gap 9.0 (3-11) BUN 14 (7-18) mg/dl Creatinine 0.79 (0.6-1.2) mg/dl Est Cr Clr Drug Dosing Not Reportable Est GFR ( Amer) 84.3 Est GFR (Non-Af Amer) 72.7 BUN/Creatinine Ratio 18.2 (10-20) Glucose 168 H (70-99) mg/dl POC Lactic Acid Ted (0.90-1.70) mmol/L Calcium 8.9 (8.5-10.1) mg/dl Total Bilirubin 0.6 (0.2-1) mg/dl AST 20 (15-37) U/L ALT 29 (12-78) U/L Alkaline Phosphatase 56 (45-117) U/L Troponin I < 0.015 (0-0.045) ng/ml Total Protein 7.2 (6.4-8.2) gm/dl Albumin 3.8 (3.4-5.0) gm/dl Globulin 3.4 (2.5-4.0) gm/dl Albumin/Globulin Ratio 1.1 (0.9-2) Urine Color Urine Appearance (Clear) Urine pH (4.5-7.5) Ur Specific Erie (1.000-1.030) Urine Protein (Negative) Urine Glucose (UA) (Negative) Urine Ketones (Negative) Urine Blood (Negative) Urine Nitrite (Negative) Urine Bilirubin (Negative) Urine Urobilinogen (Negative) Ur Leukocyte Esterase (Negative) 09/01/18 09/01/18 Range/Units 04:57 05:50 WBC (4.8-10.8) K/uL RBC (4.2-5.4) M/uL Hgb (12.0-16.0) g/dL Hct (37-47) % MCV (80-100) fL MCH (25-34) pg MCHC (32-36) g/dL RDW Std Deviation (36.4-46.3) fL RDW Coeff of Jose (11.5-14.5) % Plt Count (130-400) K/uL MPV (7.4-10.4) fL Immature Gran % (Auto) % Neut % (Auto) % Lymph % (Auto) % Sunflower % (Auto) % Eos % (Auto) % Baso % (Auto) % Immature Gran # (Auto) (0.00-0.02) K/uL Neut # (Auto) (1.4-6.5) K/uL Lymph # (Auto) (1.2-3.4) K/uL Sunflower # (Auto) (0.11-0.59) K/uL Eos # (Auto) (0-0.5) K/uL Baso # (Auto) (0-0.2) K/uL PT (9.0-12.0) Seconds INR (0.9-1.1) APTT (21.0-31.0) Seconds PTT Ratio Sodium (136-145) mmol/L Potassium (3.5-5.1) mmol/L Chloride (98-107) mmol/L Carbon Dioxide (21-32) mmol/L Anion Gap (3-11) BUN (7-18) mg/dl Creatinine (0.6-1.2) mg/dl Est Cr Clr Drug Dosing Est GFR ( Amer) Est GFR (Non-Af Amer) BUN/Creatinine Ratio (10-20) Glucose (70-99) mg/dl POC Lactic Acid Ted 1.78 H (0.90-1.70) mmol/L Calcium (8.5-10.1) mg/dl Total Bilirubin (0.2-1) mg/dl AST (15-37) U/L ALT (12-78) U/L Alkaline Phosphatase (45-117) U/L Troponin I (0-0.045) ng/ml Total Protein (6.4-8.2) gm/dl Albumin (3.4-5.0) gm/dl Globulin (2.5-4.0) gm/dl Albumin/Globulin Ratio (0.9-2) Urine Color Yellow Urine Appearance Clear (Clear) Urine pH 7.5 (4.5-7.5) Ur Specific Erie 1.017 (1.000-1.030) Urine Protein Negative (Negative) Urine Glucose (UA) Negative (Negative) Urine Ketones 1+ H (Negative) Urine Blood Negative (Negative) Urine Nitrite Negative (Negative) Urine Bilirubin Negative (Negative) Urine Urobilinogen Negative (Negative) Ur Leukocyte Esterase Negative (Negative) Imaging Data Attestation: I personally reviewed and interpreted this imaging study as follows: Blood Pressure Blood Pressure Findings: Elevated blood pressure Blood Pressure Disposition: did not require urgent referral MDM Narrative Prior records/ancillary studies reviewed. Triage Nursing notes reviewed. Additional history obtained from family. The patient's history was concerning for fever. Differential diagnosis: Etiologies such as viral syndrome, otitis, pharyngitis, pneumonia, influenza, meningitis, urinary tract infection, sepsis, bacteremia, as well as others were entertained. Physical examination: As above ER treatment provided: Tylenol, IV fluids, IV Zosyn On reassessment the patient felt better. Diagnostics interpreted by me: ECG: Normal sinus, first-degree AV block, no acute ST-T changes, rate of 101. Impression sinus tachycardia with a first-degree AV block interpreted by myself I think arrhythmia is unlikely. EKG shows normal sinus rhythm with no interval abnormalities such as QT prolongation or WPW. There are no findings to suggest Brugada syndrome. Cardiac monitoring in the emergency department reveals no tachycardic or bradycardic dysrhythmia. Hypertrophic cardiomyopathy was considered but there are no clear historical elements pointing toward this. EKG is not suggestive. The QRS voltage is not extremely large and there are no suggestive Q waves. The labs revealed leukocytosis. Blood culture pending. Mildly elevated lactic acid. Hyperglycemia without DKA. Imaging studies: Chest x-ray with no acute consolidation, pneumothorax or free air per my interpretation CT HEAD: No ICH, mass effect or edema. No evidence of acute cortical stroke. Periventricular small vessel ischemic change. Mild left ethmoid sinus disease. Left sphenoid sinus mucous retention cyst. Radiologist: Peyman Garrido M.D. Consultation: A consultation was placed with hospitalist, Dr. Miner was notified. The case was discussed and diagnostics were reviewed. The patient was evaluated in the ER for further treatment. This appears to be consistent with sepsis. Patient had no recent antibiotics. She was given Zosyn. She was hydrated as above. No pneumonia. Urine dip was negative. She had a leukocytosis. Medicine was consulted. By the evaluation outlined above emergent etiologies such as otitis, pharyngitis, pneumonia, meningitis, urinary tract infection, bacteremia, as well as others were deemed relatively unlikely. The pt informed about the findings as listed above. All questions were answered and pleased with the treatment. Case reviewed with my attending The chart was completed utilizing Netscape Speech voice recognition software. Grammatical errors, random word insertions, pronoun errors, and incomplete sentences are an occassional consequence of this system due to software limitations, ambient noise, and hardware issues. Any formal questions or concerns about the content, text, or information contained within the body of this dictation should be directly addressed to the physician stores assistant for clarification. Impression & Plan Sepsis Discharge Plan Visit Data *Final* Discharge Date/Time: 09/01/18 09:11 Chief Complaint: Illness Stated Complaint: SHAKING ED Provider: Eufemia Pinon ED Midlevel Provider: Wendy Anton Discharge Problem: Sepsis Patient Disposition: Admitted As Inpatient Condition: Fair Discharge Instructions Interventions: ED Discharge Assessment Last Done: 09/01/18 09:11 Discharge Problem: Sepsis Qualifiers: Sepsis type: sepsis due to unspecified organism Qualified Code(s): A41.9 - Sepsis, unspecified organism
[2018-09-01 05:13] LABS: Basophils # (auto) 0.05 K/uL (0-0.2); Basophils % (auto) 0.3 %; Eosinophils % (auto) 0.5 %; Hematocrit (blood only) 40.1 % (37-47); Hemoglobin 13.7 g/dL (12.0-16.0); Immature Granulocytes # (auto) 0.05 K/uL (0.00-0.02); Immature Granulocytes % (auto) 0.3 %; Lymphocytes # (auto) 1.56 K/uL (1.2-3.4); Lymphocytes % (auto) 8.1 %; Mean Corpuscular Hgb Conc 34.2 g/dL (32-36); Mean Corpuscular Volume 87.4 fL (80-100); Mean Platelet Volume 12.1 fL (7.4-10.4); Monocytes # (auto) 1.26 K/uL (0.11-0.59); Monocytes % (auto) 6.5 %; Neutrophils # (auto) 16.32 K/uL (1.4-6.5); Neutrophils % (auto) 84.3 %; Platelet Count 191 K/uL (130-400); RDW Coefficient of Variation 14.4 % (11.5-14.5); RDW Standard Deviation 46.2 fL (36.4-46.3); Red Blood Count 4.59 M/uL (4.2-5.4); White Blood Count 19.34 K/uL (4.8-10.8)
[2018-09-01 05:23] LABS: Partial Thromboplastin Ratio 0.9; Partial Thromboplastin Time 25.3 Seconds (21.0-31.0); Prothrombin Time 10.5 Seconds (9.0-12.0)
[2018-09-01 05:35] LABS: Alanine Aminotransferase 29 U/L (12-78); Albumin Level 3.8 gm/dl (3.4-5.0); Aspartate Aminotransferase 20 U/L (15-37); BUN Creatinine Ratio 18.2 (10-20); Blood Urea Nitrogen 14 mg/dl (7-18); Calcium 8.9 mg/dl (8.5-10.1); Carbon Dioxide 27 mmol/L (21-32); Chloride 101 mmol/L (98-107); Est GFR (African American) 84.3; Est GFR (Non-African American) 72.7; Glucose 168 mg/dl (70-99); Potassium 3.6 mmol/L (3.5-5.1); Sodium 137 mmol/L (136-145)
[2018-09-01 05:39] LABS: Albumin Globulin Ratio 1.1 (0.9-2); Alkaline Phosphatase 56 U/L (45-117); Bilirubin,Total 0.6 mg/dl (0.2-1); Globulin 3.4 gm/dl (2.5-4.0); Total Protein 7.2 gm/dl (6.4-8.2); Troponin I < 0.015 ng/ml (0-0.045)
[2018-09-01] MEDS ORDERED: PIPERACILL/TAZOBAC CONSULT ACTIVE PRN (05:56)
[2018-09-01] MEDS ORDERED: PIPERACILLIN/TAZOBACTAM 4.5 GM/120 ML BAG IV ONE (05:56)
[2018-09-01 06:28] LABS: Appearance Urine Clear (Clear); Bilirubin Urine Negative (Negative); Blood Urine Negative (Negative); Color Urine Yellow; Glucose Urine UA Negative (Negative); Ketones Urine 1+ (Negative); Leukocyte Esterase Urine Negative (Negative); Nitrite Urine Negative (Negative); Protein Urine Negative (Negative); Specific Gravity Urine 1.017 (1.000-1.030); Urobilinogen Urine Negative (Negative); pH Urine 7.5 (4.5-7.5)
--- NOTE | 2018-09-01 06:49 | XRay Report ---
XR chest 1V portable CLINICAL HISTORY: Sepsis COMPARISON STUDY: 05/30/2018 FINDINGS: The heart is mildly enlarged. There are postsurgical changes of a midline sternotomy. There is slight interstitial prominence but no evidence of overt failure. There are no pleural effusions. There is no focal pulmonary consolidation. Round calcific densities again project over the scapular n jean-claude.[ IMPRESSION: No acute findings. Electronically signed by: Ravindra Cummins M.D. 09/01/2018 6:48 AM
--- NOTE | 2018-09-01 07:14 | CT Scan Report ---
CT head/brain wo con CLINICAL HISTORY: Acute change in mental status. Fever, confusion. COMPARISON STUDY: November 2008 TECHNIQUE: Axial CT of the brain is performed from the vertex to the skull base. IV contrast was not administered for this examination. A dose lowering technique was utilized adhering to the principles of ALARA. CT DOSE: 614.27 mGy.cm FINDINGS: No intra or extra-axial mass lesions are visualized. There is no CT evidence of acute cortical infarc tion. There is no evidence of midline shift. There is no acute hemorrhage. No calvarial fractures ar e visualized. There are minimal white matter hypodensities likely on a small vessel basis. There is no evidence of pathologic ventricular dilatation. There is a tiny sphenoid sinus retention cyst. There is opacification of left posterior ethmoid air c ells. IMPRESSION: No acute intracranial findings Electronically signed by: Ravindra Cummins M.D. 09/01/2018 7:13 AM
--- NOTE | 2018-09-01 07:31 | History & Physical Report ---
Date of Service September 01, 2018 Assessment & Plan (1) SIRS (systemic inflammatory response syndrome): Likely early sepsis given her clinical presentation, elevated lactate, etc. She is at risk of encapsulated pathogens (strep, etc) in light of asplenic state. Rash on right lateral thigh - does not appear to be cellulitis but could potentially be lyme's rash. Will need to follow this carefully. Had recent heart cath at [facility] - certainly skin pathogens could have seeded the blood during the procedure. Cath site on right wrist is free of cellulitis or other abnormalities. U/a not suggestive of UTI. CXR wnl and lung exam clear. Nothing on labs to point towards specific etiology. Right hip without pain to suggest septic hip. Has aortic valve replacement and thus she is at risk of SBE, etc. Plan - * check lyme's titers; consider anaplasmosis and ehrlichia PCR * follow blood and urine cultures * rocephin 2 grams IV daily first dose now for empiric coverage * vancomycin per protocol IV for empiric coverage * doxycycline 100mg BID for tick-borne disease coverage * consider flu PCR * give another 500cc NS bolus then maintenance fluids thereafter * place on telemetry Present on Admission?: Yes (2) Essential (primary) hypertension: Hold lasix. Hold ARB. Continue carvedilol. Present on Admission?: Yes (3) DM w/o complication type II: Hold metformin. Check ac/hs BSGs. DM diet. Novolog - sliding scale - correction factor 30, carb ratio 1:10. Adjust as needed. Present on Admission?: Yes (4) Asplenia: At risk of encapsulated pathogens. Should be up-to-date on pneumococcal and HiB vaccines. Defer to PCP. Present on Admission?: Yes (5) Hyperlipidemia: Statin. Present on Admission?: Yes (6) Morbid obesity with BMI of 40.0-44.9, adult: BMI 40. Present on Admission?: Yes (7) DVT prophylaxis: lovenox 40mg daily updated at bedside time 60 minutes History of Present Illness Chief Complaint: fever, chills Primary Care Provider: Jessy Worthy MD 78yo female with history of bioprosthetic aortic valve, T2DM, post-splenectomy state, and HTN who presents with fever and chills starting about midnight last night. Prior to the fever/chills she had felt well over the last few days/weeks. Denies headache, sore throat, cough, congestion, ear pain, nausea, vomiting, diarrhea, dysuria. No new rashes. Just had normal heart cath at [facility] in [place] about 1 week ago. Lives in [place] with . No obvious insect bites or tick bites. No recent dental work. Denies travels or sick contacts. No pets at home. Allergies Allergy/AdvReac Type Severity Reaction Status Date / Time bee venom protein (honey bee) Allergy Intermediate . Unverified 09/01/18 05:13 Home Medications Home Medications Medication Instructions Recorded Confirmed Type aspirin 81 mg PO DAILY 09/01/18 09/01/18 History carvedilol 0 mg PO BID 09/01/18 09/01/18 History cholecalciferol (vitamin D3) 5,000 unit PO DAILY 09/01/18 09/01/18 History [Vitamin D3] furosemide [Lasix] 20 mg PO DAILY 09/01/18 09/01/18 History losartan 25 mg PO BID 09/01/18 09/01/18 History metformin 1,000 mg PO BID 09/01/18 09/01/18 History potassium chloride 10 meq PO DAILY 09/01/18 09/01/18 History simvastatin 0 mg PO HS 09/01/18 09/01/18 History Past Med/Surg History Medical History CAD (coronary artery disease) Diabetes High blood pressure Surgical History H/O aortic valve replacement 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 - [facility] (cyst) History of appendectomy History of right hip replacement late S/P splenectomy Family History Father , about age 70 Melanoma Mother , age 80 Intracerebral hemorrhage Social History Preferred Language: Lao Communication Ability: Effective 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 Beliefs That Will Affect Care: None marital status: marital status details: live in [place]; 3 sons Current Living Situation: Spouse current occupational status: retired Other Information That Helps Us Care for You: No other: ran a [employer] near [place], [place] Feels Safe at Home: Yes Safety Concerns: Feels Safe At This Time Smoking Status: Former smoker Age Quit Using Tobacco: 56 packs per day: 1 Years Smoked: 30 Do You Dip or Chew Tobacco: No Second Hand Exposure: No Tobacco Cessation Education Requested by Patient: No Hx Alcohol Use: Yes Alcohol type: wine Alcohol Intake Frequency: Holidays/Special Occasions Hx Substance Use: No Review of Systems Constitutional: + fever and + chills; no anorexia, no weight loss and no weight gain Eyes: no worsening vision Ear, Nose, Mouth, Throat: no ear pain, no nasal congestion and no sore throat Respiratory: + dyspnea on exertion (chronic); no cough and no dyspnea Cardiovascular: no chest pain Gastrointestinal: no abdominal pain, no nausea, no vomiting and no diarrhea/loose stools Genitourinary: no dysuria Musculoskeletal: + joint pain (2nd fingers, both hands) Integumentary: + rash (chronic, skin folds abdomen) Neurologic: + gait abnormality ( for 2 years) Psychiatric: no depression Endocrine: bsgs at home -- <150 Hematologic / Lymphatic: no lymphadenopathy Physical Exam Constitutional: + ill appearing and + morbidly obese; no acute distress and no altered mental status Eyes: + anicteric sclerae and PERRL ENMT: Ears: + unable to visualize TM (right; but TM on left normal) Mouth: + dry oral mucous membranes no lesions Neck: trachea midline, no thyromegaly Respiratory: normal respiratory effort, lungs clear to auscultation Cardiovascular: Rate/Rhythm: regular rate and regular rhythm Heart Sounds: normal S1, normal S2 and + murmur (2/6 systolic RUSB/LLSB) Vessels: posterior tibial pulses present and dorsalis pedis pulses present; no JVD Extremities: no edema Gastrointestinal (Abdomen): Inspection/Auscultation: normal bowel sounds Percussion/Palpation: abdomen soft; abdomen nontender, no guarding and no hepatomegaly multiple scars on abdominal wall; white striae Musculoskeletal: no cyanosis or clubbing, extremities motor strength 5/5 right hip -- full passive ROM without tenderness; scar present. There is a large erythematous rash -- see "skin". Skin: + rash (right lateral hip/thigh -- large area of erythema, warm to touch) rash does not have vesicles or raised areas; no scale; no abscess; borders are mildly irregular Neurologic: deep tendon reflexes 2+ bilaterally; no focal motor deficits and not confused Speech / Cognition: normal speech Psychiatric: A+Ox3, euthymic affect Lymphatic: + cervical lymphadenopathy (multiple, 1cm in size b/l ) Results & Data Vital Signs (Past 12 Hours) Vital Signs Temp Pulse Pulse Resp BP BP Pulse Ox 09/01/18 06:12 22 167/89 H 93 09/01/18 05:46 37 C 09/01/18 05:37 87 16 167/91 H 98 09/01/18 04:47 102 H 20 190/115 H 98 09/01/18 04:23 39.5 C H 102 H 19 164/80 H 91 Laboratory Results Laboratory Results - last 24 hr 09/01/18 09/01/18 09/01/18 04:54 04:54 04:54 WBC 19.34 H RBC 4.59 Hgb 13.7 Hct 40.1 MCV 87.4 MCH 29.8 MCHC 34.2 RDW Std Deviation 46.2 RDW Coeff of Jose 14.4 Plt Count 191 MPV 12.1 H Immature Gran % (Auto) 0.3 Neut % (Auto) 84.3 Lymph % (Auto) 8.1 [place] % (Auto) 6.5 Eos % (Auto) 0.5 Baso % (Auto) 0.3 Immature Gran # (Auto) 0.05 H Neut # (Auto) 16.32 H Lymph # (Auto) 1.56 [place] # (Auto) 1.26 H Eos # (Auto) 0.10 Baso # (Auto) 0.05 PT 10.5 INR 1.0 APTT 25.3 PTT Ratio 0.9 Sodium 137 Potassium 3.6 Chloride 101 Carbon Dioxide 27 Anion Gap 9.0 BUN 14 Creatinine 0.79 Est Cr Clr Drug Dosing Not Reportable Est GFR ( Amer) 84.3 Est GFR (Non-Af Amer) 72.7 BUN/Creatinine Ratio 18.2 Glucose 168 H POC Lactic Acid Ted Calcium 8.9 Total Bilirubin 0.6 AST 20 ALT 29 Alkaline Phosphatase 56 Troponin I < 0.015 Total Protein 7.2 Albumin 3.8 Globulin 3.4 Albumin/Globulin Ratio 1.1 Urine Color Urine Appearance Urine pH Ur Specific [place] Urine Protein Urine Glucose (UA) Urine Ketones Urine Blood Urine Nitrite Urine Bilirubin Urine Urobilinogen Ur Leukocyte Esterase 09/01/18 09/01/18 04:57 05:50 WBC RBC Hgb Hct MCV MCH MCHC RDW Std Deviation RDW Coeff of Jose Plt Count MPV Immature Gran % (Auto) Neut % (Auto) Lymph % (Auto) [place] % (Auto) Eos % (Auto) Baso % (Auto) Immature Gran # (Auto) Neut # (Auto) Lymph # (Auto) [place] # (Auto) Eos # (Auto) Baso # (Auto) PT INR APTT PTT Ratio Sodium Potassium Chloride Carbon Dioxide Anion Gap BUN Creatinine Est Cr Clr Drug Dosing Est GFR ( Amer) Est GFR (Non-Af Amer) BUN/Creatinine Ratio Glucose POC Lactic Acid Ted 1.78 H Calcium Total Bilirubin AST ALT Alkaline Phosphatase Troponin I Total Protein Albumin Globulin Albumin/Globulin Ratio Urine Color Yellow Urine Appearance Clear Urine pH 7.5 Ur Specific [place] 1.017 Urine Protein Negative Urine Glucose (UA) Negative Urine Ketones 1+ H Urine Blood Negative Urine Nitrite Negative Urine Bilirubin Negative Urine Urobilinogen Negative Ur Leukocyte Esterase Negative Diagnostic Findings cxr - no infiltrates. CT head - no acute findings. ekg - my reading - sinus tach, LVH by voltage criteria, no ST changes. 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
[2018-09-01] MEDS ORDERED: SODIUM CHLORIDE 0.9% 500 ML IV ONE (08:37)
[2018-09-01] MEDS ORDERED: VANCOMYCIN HCL 1,000 MG in SODIUM CHLORIDE 0.9% 250 ML IV SCH (09:28)
[2018-09-01] MEDS ORDERED: ACETAMINOPHEN 325 MG TAB PO PRN (09:28)
[2018-09-01] MEDS ORDERED: VANCOMYCIN CONSULT ACTIVE PRN (09:28)
[2018-09-01] MEDS ORDERED: ONDANSETRON INJ 2 MG/ML 2 ML VIAL IV PRN (09:28)
[2018-09-01] MEDS ORDERED: VANCOMYCIN HCL 2,500 MG in SODIUM CHLORIDE 0.9% 500 ML IV ONE (10:00)
[2018-09-01 10:02] LABS: Lyme Ab IgG w/WB Rflx Negative (Negative); Lyme Ab IgM w/WB Rflx Negative (Negative)
--- NOTE | 2018-09-01 10:03 | Pharmacy Report ---
Pharmacy Abx Initial Consult - Date of Service September 01, 2018 - Pharmacy Dosing Scope Date of Consult: 09/01 Consultation requested by: Dr. Velazquez Pharmacy is consulted to initiate vancomycin dosing therapy, order appropriate labs and adjust drug dose/frequency. - Subjective The patient is a 78 year old F admitted on 09/01/18 08:29. - Objective Height: 5 ft 7 in Weight: 116.4 kg Vital Signs (Past 12hrs): Vital Signs Temp Pulse Pulse Resp BP BP Pulse Ox 09/01/18 09:29 37.4 C 58 L 18 128/56 L 95 09/01/18 09:01 90 21 95 09/01/18 09:00 90 20 131/57 L 94 09/01/18 08:31 94 H 24 93 09/01/18 08:30 96 H 24 131/64 97 09/01/18 08:26 37.0 C 09/01/18 08:19 96 H 24 98 09/01/18 08:18 97 H 18 134/67 96 09/01/18 08:01 93 H 20 95 09/01/18 08:00 94 H 27 H 129/92 93 09/01/18 07:31 95 H 19 95 09/01/18 07:30 96 H 25 H 144/78 H 95 09/01/18 07:01 96 H 25 H 94 09/01/18 07:00 96 H 26 H 139/72 93 09/01/18 06:31 97 H 21 85 L 09/01/18 06:30 96 H 24 151/74 H 88 L 09/01/18 06:12 22 167/89 H 93 09/01/18 06:01 100 H 36 H 91 09/01/18 06:00 100 H 33 H 167/89 H 92 09/01/18 05:49 99 H 26 H 177/81 H 90 09/01/18 05:46 37 C 09/01/18 05:37 87 16 167/91 H 98 09/01/18 05:32 99 H 27 H 09/01/18 05:31 100 H 30 H 167/91 H 09/01/18 05:01 101 H 28 H 09/01/18 05:00 101 H 26 H 180/71 H 09/01/18 04:47 102 H 20 190/115 H 98 09/01/18 04:45 101 H 27 H 09/01/18 04:42 101 H 29 H 190/115 H 09/01/18 04:23 39.5 C H 102 H 19 164/80 H 91 Lab Results (24hrs): Laboratory Tests (24 Hours) 09/01/18 09/01/18 04:54 04:54 WBC 19.34 H Neut # (Auto) 16.32 H Creatinine 0.79 Est Cr Clr Drug Dosing Not Reportable Micro Results: 09/01/18 04:54 Aerobic Blood Culture - Pending Blood Anaerobic Blood Culture - Pending 09/01/18 04:54 Aerobic Blood Culture - Pending Blood Anaerobic Blood Culture - Pending - Assessment & Plan Assessment 78 year old with possible sepsis. Rash on thigh, concern for possible lyme's rash. Blood cultures x 2 are pending. Started on vancomycin, doxy and rocephin on admission empirically. Of note, recent heart cath procedure done. Plan Vancomycin IV * Will given 2500 mg x 1 (loading dose) ~22 mg/kg dose * Will start vancomycin 1500 mg (~13 mg/kg) iv q 12 hrs to achieve an estimated trough ~15-20 mcg/ml * A less than traditional dosing selected due to elevated BMI >35 kg/m2, therefore patient at higher risk of accumulation with vancomycin * Estimated kinetics: t1/2~10 hrs, ke~0.06 hr-1, CrCl ~78 ml/min - appears to be at baseline for Scr * Will wait to order trough as indication empiric - if to be continued >48 hrs will collect trough Pharmacy will continue to follow and will adjust dose/frequency as necessary. Thank you.
[2018-09-01] MEDS: cefTRIAXone SODIUM 2,000 MG in DEXTROSE 5% 50 ML IV SCH (10:08)
[2018-09-01] MEDS: ENOXAPARIN INJ 40 MG/0.4 ML SYR SQ SCH (10:11)
[2018-09-01] MEDS: CHOLECALCIFEROL 1,000 UNITS TAB PO SCH (10:14)
[2018-09-01] MEDS: CARVEDILOL 6.25 MG TAB PO SCH ×2 (10:14→21:16)
[2018-09-01] MEDS: ASPIRIN 81 MG ECTAB PO SCH (10:14)
[2018-09-01] MEDS: POTASSIUM CHLORIDE 10 MEQ TABCR PO SCH (10:14)
[2018-09-01] MEDS: DOXYCYCLINE HYCLATE 100 MG CAP PO SCH ×2 (10:14→21:16)
[2018-09-01] MEDS: SODIUM CHLORIDE 0.9% 1000ML 1,000 ML IV SCH ×2 (10:15→21:12)
[2018-09-01] MEDS ORDERED: GLUCOSE 10 TABS/TUBE PO PRN (11:45)
[2018-09-01] MEDS ORDERED: GLUCAGON FOR INJ 1 MG VIAL IM PRN (11:45)
[2018-09-01] MEDS ORDERED: DEXTROSE 50% 50 ML SYRINGE IV PRN (11:45)
[2018-09-01] MEDS ORDERED: CARBOHYDRATES FOR HYPOGLYCEMIA PO PRN (11:45)
[2018-09-01] MEDS ORDERED: GLUCOSE 40% GEL 15 GM TUBE PO PRN (11:45)
[2018-09-01] MEDS: INSULIN ASPART 100 UNITS/ML 3 ML PEN SC SCH ×3 (12:25→21:15)
[2018-09-01 13:11] LABS: Influenza A virus by PCR Neg for Influ A (Neg); Influenza B virus by PCR Neg for Influ B (Neg)
[2018-09-01] MEDS: SIMVASTATIN 40 MG TAB PO SCH (21:16)
[2018-09-01] MEDS: VANCOMYCIN HCL 1,500 MG in SODIUM CHLORIDE 0.9% 500 ML IV SCH (23:41)
[2018-09-02 07:09] LABS: Basophils # (auto) 0.08 K/uL (0-0.2); Basophils % (auto) 0.9 %; Eosinophils # (auto) 0.21 K/uL (0-0.5); Eosinophils % (auto) 2.4 %; Hematocrit (blood only) 37.7 % (37-47); Hemoglobin 12.5 g/dL (12.0-16.0); Immature Granulocytes # (auto) 0.01 K/uL (0.00-0.02); Immature Granulocytes % (auto) 0.1 %; Lymphocytes # (auto) 2.33 K/uL (1.2-3.4); Lymphocytes % (auto) 26.6 %; Mean Corpuscular Hgb Conc 33.2 g/dL (32-36); Mean Corpuscular Volume 88.7 fL (80-100); Mean Platelet Volume 11.8 fL (7.4-10.4); Neutrophils # (auto) 5.42 K/uL (1.4-6.5); Platelet Count 172 K/uL (130-400); RDW Coefficient of Variation 14.9 % (11.5-14.5); RDW Standard Deviation 48.7 fL (36.4-46.3); Red Blood Count 4.25 M/uL (4.2-5.4); White Blood Count 8.75 K/uL (4.8-10.8)
[2018-09-02 07:47] LABS: BUN Creatinine Ratio 14.6 (10-20); Calcium 8.6 mg/dl (8.5-10.1); Creatinine Clr Calc Pharmacy 98.5 ml/min; Est GFR (African American) 100.5; Est GFR (Non-African American) 86.7; Potassium 3.5 mmol/L (3.5-5.1)
[2018-09-02] MEDS: ASPIRIN 81 MG ECTAB PO SCH (08:19)
[2018-09-02] MEDS: CHOLECALCIFEROL 1,000 UNITS TAB PO SCH (08:20)
[2018-09-02] MEDS: CARVEDILOL 6.25 MG TAB PO SCH ×2 (08:20→20:31)
[2018-09-02] MEDS: POTASSIUM CHLORIDE 10 MEQ TABCR PO SCH (08:20)
[2018-09-02] MEDS: ENOXAPARIN INJ 40 MG/0.4 ML SYR SQ SCH (08:22)
[2018-09-02] MEDS: DOXYCYCLINE HYCLATE 100 MG CAP PO SCH (08:22)
[2018-09-02] MEDS: INSULIN ASPART 100 UNITS/ML 3 ML PEN SC SCH ×4 (08:23→20:29)
[2018-09-02] MEDS: cefTRIAXone SODIUM 2,000 MG in DEXTROSE 5% 50 ML IV SCH (08:29)
[2018-09-02] MEDS: SODIUM CHLORIDE 0.9% 1000ML 1,000 ML IV SCH (08:35)
[2018-09-02] MEDS ORDERED: LOSARTAN POTASSIUM 50 MG TAB PO SCH (09:00)
[2018-09-02] MEDS: FUROSEMIDE 20 MG TAB PO SCH (10:48)
[2018-09-02] MEDS: VANCOMYCIN HCL 1,500 MG in SODIUM CHLORIDE 0.9% 500 ML IV SCH ×2 (10:48→22:19)
--- NOTE | 2018-09-02 12:28 | CT Scan Report ---
CT femur RT wo con CT DOSE: 966.70 mGy.cm HISTORY: Mass. Abscess. eval for soft tissue abscess TECHNIQUE: Multiaxial CT images of the right femur were performed and reformatted in the sagittal and coronal plane without the use of contrast. A dose lowering technique was utilized adhering to the p rinciples of ISRA. COMPARISON: None. FINDINGS: Total right hip arthroplasty in good position. Bony structures show no lytic or blastic pro cess. 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 No evidence for abnormal mass collection or abscess. Possible minimal subcutaneous tissue cellulitis- type change. IMPRESSION: 1. Potential minimal subcutaneous fat cellulitis-type change. 2. Prior total right hip arthroplasty. 3. No evidence for mass collection or abscess. 4. No acute process of the femur. The above report was generated using voice recognition software. It may contain grammatical, syntax or spelling errors. Electronically signed by: Ramo Moore M.D. 09/02/2018 12:27 PM
--- NOTE | 2018-09-02 12:47 | XRay Report ---
XR femur RT 2V routine CLINICAL HISTORY: eval for osteomyelitis pain. Infection. COMPARISON: None. DISCUSSION: Anatomic alignment posttotal right hip arthroplasty. No lytic or blastic process. No abno rmal periosteal reaction. There is no evidence for soft tissue swelling. IMPRESSION: No acute process post total right hip arthroplasty. The above report was generated using voice recognition software. It may contain grammatical, syntax or spelling errors. Electronically signed by: Ramo Moore M.D. 09/02/2018 12:46 PM
--- NOTE | 2018-09-02 12:49 | XRay Report ---
XR hip RT 2-3V w pelvis CLINICAL HISTORY: eval prosthesis COMPARISON: None. DISCUSSION: Anatomic alignment posttotal right hip arthroplasty. Good contact between the prosthetic and a Bone. No evidence for acetabular protrusion. There is no evidence for soft tissue swelling. IMPRESSION: Anatomic alignment posttotal right hip arthroplasty. The above report was generated using voice recognition software. It may contain grammatical, syntax or spelling errors. Electronically signed by: Ramo Moore M.D. 09/02/2018 12:47 PM
--- NOTE | 2018-09-02 13:25 | Communication Note ---
Date of Service: September 02, [address] of right hip and leg reviewed. No evidence of osteomyelitis, no abscess, prosthesis is well positiioned. I do not see any indications for rodriguez rgery and I do not see an orthopedic expalnation for fevers. Will sign off. Please call with further concerns.
--- NOTE | 2018-09-02 15:14 | Pharmacy Report ---
Pharmacy Abx Dose Short Note - Date of Service September 02, 2018 - Assessment & Plan Assessment / Plan 78 year old F receiving Vancomycin 1500mg Q12H. Day # 2 of antimicrobial therapy. * Vanc and Rocephin initially ordered empirically x 48 hrs - spoke with Provider who suspects source to be cellulitis. * Extended stop date of antibiotics to reflect updated clinical indication of SSTI. * Of note, patient's renal fxn improved today (Scr 0.79 >> 0.64). However, given risk of accumulation in pt with BMI ~40 and that the goal trough for SSTI is only 10-15, will hold off on making adjustments to current regimen. * Trough ordered for 09/03 before 1000 dose - should be reflective of Css. Pharmacy will continue to follow and will adjust dose/frequency as necessary. Thank you.
--- NOTE | 2018-09-02 16:11 | Hospitalist Progress Note ---
Date of Service September 02, 2018 Assessment & Plan (1) Sepsis: source - likely RLE cellulitis. clinically starting to improve today. blood cx's negative. no fever since yesterday am. urine cx negative. lyme's testing was negative; doesn't rule it out early in the course but rash is more c/w cellulitis than lyme's rash. d/c doxy - low suspicion for any type of tick-borne illness. cont rocephin. cont vancomycin. stop IV fluids. ok to move to med/surg. Present on Admission?: Yes (2) Cellulitis of leg, right: as above in "sepsis". the area of concern is directly over the scar from her right total hip r eplacement. I don't think there is any deep infection or joint involvement given that she has full ROM without tenderness and there is no discrete swelling to suggest abscess formation. [id number] will ask Dr Troy to see her in consult just to be sure the joint is fine. Present on Admission?: Yes (3) Essential (primary) hypertension: Resume lasix and losartan. Continue carvedilol. Present on Admission?: Yes (4) DM w/o complication type II: Control adequate at this time. Hold metformin. Check ac/hs BSGs. DM diet. Novolog - sliding scale - correction factor 30, carb ratio 1:10. Adjust as needed. (5) Asplenia: At risk of encapsulated pathogens. Should be up-to-date on pneumococcal and HiB vaccines. Defer to PCP. Blood cultures negative to date. (6) Hyperlipidemia: Continue statin therapy. (7) Morbid obesity with BMI of 40.0-44.9, adult: BMI 40. (8) DVT prophylaxis: lovenox 40mg daily overall pleased with her progress PT evaluation move to med/surg Subjective patient feels better today. no fever/chills since ER presentation yesterday. appetite good - ate 100% breakfast. tele w/ NSR overnight. still with "heat" over the right hip region. but able to walk on right leg w/o significant discomfort. patient DOES use NC O2 at night-time routinely at home. JOSE? Review of Systems Constitutional: + fatigue; no fever, no chills, no body aches and no anorexia Respiratory: no cough and no dyspnea Cardiovascular: no chest pain, no orthopnea, no paroxysmal nocturnal dyspnea and no edema Gastrointestinal: no abdominal pain, no nausea and no vomiting Musculoskeletal: no joint pain Integumentary: + rash Physical Exam Constitutional: well developed and well nourished; no acute distress and no altered mental status ENMT: external ear and nose normal, oropharynx normal Respiratory: normal respiratory effort, lungs clear to auscultation Cardiovascular: Rate/Rhythm: regular rate and regular rhythm Heart Sounds: normal S1 and normal S2; no murmur Vessels: posterior tibial pulses present and dorsalis pedis pulses present; no JVD Extremities: no edema Gastrointestinal (Abdomen): normal bowel sounds, soft, nontender, no hepatosplenomegaly Musculoskeletal: right hip - passive flexion/extension is FULL and without any tenderness. Skin: irregular area of cellulitis on outer aspect of right lateral superior thigh -- either same or modestly improved today (less erythematous, pink skin beginning to recede from demarkation lines) Psychiatric: A+Ox3, euthymic affect Results & Data Vital Signs (Past 12 Hours) Vital Signs Temp Pulse Pulse Resp BP Pulse Ox 09/02/18 15:19 36.8 C 54 L 20 149/68 H 98 09/02/18 11:49 36.8 C 52 L 18 179/79 H 95 09/02/18 08:00 54 L 09/02/18 06:41 37.1 C 53 L 16 185/76 H 96 Laboratory Results Laboratory Results - last 24 hr 09/01/18 09/01/18 09/02/18 16:24 20:37 06:51 WBC RBC Hgb Hct MCV MCH MCHC RDW Std Deviation RDW Coeff of Jose Plt Count MPV Immature Gran % (Auto) Neut % (Auto) Lymph % (Auto) [place] % (Auto) Eos % (Auto) Baso % (Auto) Immature Gran # (Auto) Neut # (Auto) Lymph # (Auto) [place] # (Auto) Eos # (Auto) Baso # (Auto) ESR Sodium 144 D Potassium 3.5 Chloride 111 H Carbon Dioxide 26 Anion Gap 8.0 BUN 9 D Creatinine 0.64 Est Cr Clr Drug Dosing 98.5 Est GFR ( Amer) 100.5 Est GFR (Non-Af Amer) 86.7 BUN/Creatinine Ratio 14.6 Glucose 135 H POC Glucose 112 H 135 H Calcium 8.6 C-Reactive Protein 09/02/18 09/02/18 09/02/18 06:51 06:51 06:57 WBC 8.75 RBC 4.25 Hgb 12.5 Hct 37.7 MCV 88.7 MCH 29.4 MCHC 33.2 RDW Std Deviation 48.7 H RDW Coeff of Jose 14.9 H Plt Count 172 MPV 11.8 H Immature Gran % (Auto) 0.1 Neut % (Auto) 62.0 Lymph % (Auto) 26.6 [place] % (Auto) 8.0 Eos % (Auto) 2.4 Baso % (Auto) 0.9 Immature Gran # (Auto) 0.01 Neut # (Auto) 5.42 Lymph # (Auto) 2.33 [place] # (Auto) 0.70 H Eos # (Auto) 0.21 Baso # (Auto) 0.08 ESR 10 Sodium Potassium Chloride Carbon Dioxide Anion Gap BUN Creatinine Est Cr Clr Drug Dosing Est GFR ( Amer) Est GFR (Non-Af Amer) BUN/Creatinine Ratio Glucose POC Glucose Calcium C-Reactive Protein 6.92 H 09/02/18 09/02/18 07:35 11:00 WBC RBC Hgb Hct MCV MCH MCHC RDW Std Deviation RDW Coeff of Jose Plt Count MPV Immature Gran % (Auto) Neut % (Auto) Lymph % (Auto) [place] % (Auto) Eos % (Auto) Baso % (Auto) Immature Gran # (Auto) Neut # (Auto) Lymph # (Auto) [place] # (Auto) Eos # (Auto) Baso # (Auto) ESR Sodium Potassium Chloride Carbon Dioxide Anion Gap BUN Creatinine Est Cr Clr Drug Dosing Est GFR ( Amer) Est GFR (Non-Af Amer) BUN/Creatinine Ratio Glucose POC Glucose 133 H 121 H Calcium C-Reactive Protein Diagnostic Findings blood cx's negative urine cx negative lyme's testing negative flu test negative PG Care Time/CCT Total # of Minutes Spent Total Time Spent with Patient: Total time spent is greater than 50% in coordination of care (as documented) at patient's floor/unit and/or counseling patient: (1) DM w/o complication type II Diabetes 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
[2018-09-02] MEDS: SIMVASTATIN 40 MG TAB PO SCH (20:34)
--- NOTE | 2018-09-02 22:17 | Consultation Report ---
DATE OF CONSULTATION: 09/02/2018 Orthopedic Surgery consultation with special attention to right leg swelling and erythema. HISTORY OF PRESENT ILLNESS: This is a 78-year-old female who was admitted on 09/01/2018 with a systemic inflammatory response with early sepsis and fever. She does have a chronic history of some pain in the lateral leg and has been treated for bursitis in our office with an injection, most recently 1 year ago. She has sudden onset of fever; however, and she does have some pain in the lateral thigh but no significant pain in the groin or in the hip. PAST MEDICAL HISTORY: 1. Recent cardiac catheterization. 2. History of type 2 diabetes. 3. Hyperlipidemia. 4. Morbid obesity. 5. Asplenia. 6. Status post aortic valve replacement. OBJECTIVE: Right lower leg exam does show an area of approximately 6 x 5 cm of mild erythema on the lateral thigh. I did not detect any gross fluctuance, but she is swollen in the area. She has no pain with range of motion of the hip and she has nothing to suggest a septic hip joint. Surgical incision itself is clean, dry and intact and well-healed. She has no drainage. She has no streaking erythema. ASSESSMENT: A 78-year-old female; rule out right leg superficial infection. PLAN: I would like to obtain radiographs to evaluate her prosthesis and also a CAT scan to evaluate to see if she has any evidence of abscess in the soft tissues. We will continue to follow. She has had some interval improvement with antibiotic treatment she states.
[2018-09-02] MEDS: LOSARTAN POTASSIUM 50 MG TAB PO SCH (22:19)
[2018-09-03 06:37] LABS: BUN Creatinine Ratio 14.6 (10-20); Calcium 8.7 mg/dl (8.5-10.1); Creatinine Clr Calc Pharmacy 91.4 ml/min; Est GFR (Non-African American) 84.6; Potassium 3.6 mmol/L (3.5-5.1)
[2018-09-03] MEDS ORDERED: MICONAZOLE NITRATE POWDER 43 GM EXT PRN (07:01)
[2018-09-03] MEDS: CHOLECALCIFEROL 1,000 UNITS TAB PO SCH (08:19)
[2018-09-03] MEDS: LOSARTAN POTASSIUM 50 MG TAB PO SCH ×2 (08:21→20:49)
[2018-09-03] MEDS: CARVEDILOL 6.25 MG TAB PO SCH ×2 (08:21→20:45)
[2018-09-03] MEDS: FUROSEMIDE 20 MG TAB PO SCH (08:22)
[2018-09-03] MEDS: ASPIRIN 81 MG ECTAB PO SCH (08:22)
[2018-09-03] MEDS: POTASSIUM CHLORIDE 10 MEQ TABCR PO SCH (08:22)
[2018-09-03] MEDS: INSULIN ASPART 100 UNITS/ML 3 ML PEN SC SCH ×4 (08:23→20:49)
[2018-09-03] MEDS: cefTRIAXone SODIUM 2,000 MG in DEXTROSE 5% 50 ML IV SCH (08:27)
[2018-09-03] MEDS ORDERED: VANCOMYCIN TROUGH ONE (09:30)
[2018-09-03] MEDS: VANCOMYCIN HCL 1,500 MG in SODIUM CHLORIDE 0.9% 500 ML IV SCH (09:48)
[2018-09-03] MEDS: ENOXAPARIN INJ 40 MG/0.4 ML SYR SQ SCH (09:48)
[2018-09-03 14:28] LABS: Hematocrit (blood only) 38.3 % (37-47); Hemoglobin 12.7 g/dL (12.0-16.0); Mean Corpuscular Hgb Conc 33.2 g/dL (32-36); Mean Corpuscular Volume 88.9 fL (80-100); Mean Platelet Volume 12.5 fL (7.4-10.4); Platelet Count 182 K/uL (130-400); RDW Coefficient of Variation 14.8 % (11.5-14.5); RDW Standard Deviation 48.6 fL (36.4-46.3); Red Blood Count 4.31 M/uL (4.2-5.4); White Blood Count 7.89 K/uL (4.8-10.8)
[2018-09-03] MEDS ORDERED: HydrALAZINE HCL 20 MG/ML VIAL IV PRN (16:19)
--- NOTE | 2018-09-03 16:19 | Hospitalist Progress Note ---
Date of Service September 03, 2018 Assessment & Plan (1) Sepsis: source - likely RLE cellulitis. clinically improving blood cx's negative. no fever in 48 hours urine cx negative. lyme's testing was negative; d/c doxy - low suspicion for any type of tick-borne illness. dc Rocephin and vancomyicin and start po Bactrim (2) Cellulitis of leg, right: as above in "sepsis". the area of concern is directly over the scar from her right total hip replaceme nt. CT did not reveal any suspicion for infection around or in prosthesis, did show soft tissue changes consistent with cellulitis. Dr. Troy reviewed and does not see any indication for surgery, signed off. (3) Essential (primary) hypertension: Resumed lasix and losartan, continue carvedilol- losartan increased to 50 mg bid from home dose of 25 mg bid. BP continues to be as high as 200 systolically. Patient reports some chest pressure at times while at rest that resolves spontaneously. She has recently had a cardiac cath and has been undergoing workup for this chest pressure. - will add prn hydralazine, asked patient to please alert nursing staff of further chest pressure for EKG, will obtain troponin. Consult cardiology, patient sees Ramo Judd outpatient (4) DM w/o complication type II: Control adequate at this time. Hold metformin. Check ac/hs BSGs. DM diet. Novolog - sliding scale Adjust as needed. (5) Asplenia: At risk of encapsulated pathogens. Should be up-to-date on pneumococcal and HiB vaccines. Defer to PCP. Blood cultures negative to date. (6) Hyperlipidemia: Continue statin therapy. (7) Morbid obesity with BMI of 40.0-44.9, adult: BMI 40. (8) DVT prophylaxis: lovenox 40mg daily PT/OT evals recommending continued PT/OT outpatient after discharge Dispo: hopefully will dc home after cardiology consult, sounds like chest pressure is an ongoing issue but would like them to weigh in before discharging given her elevated blood pressures. Subjective Ms. Castle reports some chest pressure at times, not currently as I'm talking to her. She has had ongoing workup for chest pressure and dyspnea including recent cath which she was told was without blockage. She see Ramo Judd outpatient. Her blood pressure has been quite high today. She has not had any other associated symptoms like headache or vision change Review of Systems Review of Systems: All systems reviewed & are unremarkable except as noted in HPI & below Physical Exam Physical Exam: General: no distress Eyes: normal inspection, PERLL Respiratory: chest non tender, clear to auscultation, normal breath sounds, no respiratory distress, no accessory muscle use Cardiac: regular rate and rhythm, no rub or gallop, no murmur, no edema, no jvd GI/: active bowel sounds, no abd pain or tenderness, soft, non distended Extremities: normal range of motion, normal strength, non tender Neuro/Psych: alert and oriented x 3, normal mood and affect Skin: normal color, dry Results & Data Vital Signs (Past 12 Hours) Vital Signs Temp Pulse Resp BP Pulse Ox 09/03/18 15:55 37.1 C 53 L 21 173/71 H 95 09/03/18 12:06 169/76 H 09/03/18 07:31 36.7 C 56 L 18 208/75 H 98 PG Care Time/CCT Total # of Minutes Spent Total Time Spent with Patient: Total time spent is greater than 50% in coordination of care (as documented) at patient's floor/unit and/or counseling patient: (1) Sepsis Sepsis type: sepsis due to unspecified organism Qualified Code(s): A41.9 - Sepsis, unspecified organism (2) DM w/o complication type II Diabetes mellitus custodial insulin use: without termination clerk use Qualified Code(s): E11.9 - Type 2 diabetes mellitus without complications (3) Hyperlipidemia Hyperlipidemia type: mixed hyperlipidemia Qualified Code(s): E78.2 - Mixed hyperlipidemia
--- NOTE | 2018-09-03 16:50 | Cardiology Consultation ---
Date of Consultation September 03, 2018 Assessment & Plan (1) Essential (primary) hypertension: (2) Chest pain: (3) S/P AVR (aortic valve replacement): Patient admitted with right lower extremity cellulitis. Elevated blood pressure with intermittent chest discomfort reported today. Patient has history of ongoing chest pain over the past few months with extensive cardiovascular evaluation including resting 2D transthoracic echocardiogram, Lexiscan nuclear stress test, and recent cardiac catheterization performed 08/23/2018. There is no evidence of obstructive CAD. Hemodynamic assessment of bioprosthetic AVR also demonstrated no significant gradient per left heart catheterization. Di scomfort possibly related to elevated end-diastolic pressure in the setting of uncontrolled blood pressure. Recommend addition of topical nitrates and low- dose calcium channel anthony therapy today. Continue to monitor blood pressure during hospitalization. Other cardiovascular medications will be continued as previously ordered. Consider titration of diuretic therapy in the future. Thank you for allowing me to participate in the care of your patient. I will continue to follow during hospitalization. History of Present Illness Reason for Consultation: Hypertension, chest pain Requesting Physician: Tri ORTIZ Attending Physician: Aneudy Little MD History of Present Illness 78-year-old female admitted with right lower extremity cellulitis. Patient r ecently evaluated in the cardiology clinic for ongoing chest discomfort and hypertension. Cardiac catheterization performed 08/23/2018 with results listed below. Catheterization was performed due to abnormal Lexiscan nuclear stress test suggesting anterior ischemia. Patient has a long-standing history of chest discomfort typically occurring at rest. The discomfort is described as a heaviness and tightness. Blood pressure elevated over the past 24 hours during hospitalization. Currently patient is asymptomatic. Cellulitis is improving. Family present at bedside. They offer no additional concerns/complaints at this time. ECG: Sinus bradycardia, no significant ST-T wave changes. Cardiac catheterization report summary 08/23/2018: The coronary arteries have diffuse minor irregularities with nonobstructive coronary disease. The left ventricular end-diastolic pressure was 27 to 28 mmHg, moderately elevated. Pullback endhole catheter from the left ventricular apex to the left ventricular outflow tract to the aorta demonstrates no intraventricular gradient and an aortic valve gradient of 0 to 10 mm peak to peak. No angiographic explanation for patient's chest discomfort. Resting 2D transthoracic echocardiogram report 06/07/2018: The qualitative LV ejection fraction is 65-69% (normal). The LV wall thickness is severely increased (concentric). The left atrium is severely enlarged. There is an aortic valve bioprosthetic present. The aortic valve prosthesis systolic gradients are abnormal for this type prosthesis suggesting obstruction. Increased gradient is multifactoral due to small prosthesis size, dynamic LVEF, and narrow LVOT. The bioprosthetic aortic valve leaflets are not well visualized. Mild mitral regurgitation is present. Mild tricuspid regurgitation is present. The proximal ascending thoracic aorta is mildly enlarged. Compared to last available study changes are noted as follows: Bioprosthetic aortic valve systolic gradients have increased, however, are unchanged when compared to echocardiogram dated February 17, 2016. Past Medical and Surgical History: 1. 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 2. Pulmonary hypertension 3. Enlarged proximal ascending aorta 4. No obstructive coronary disease by cardiac catheterization in March 2011. 5. Diastolic heart failure 6. Moderate internal carotid artery disease 7. Type II diabetes mellitus 8. Hypertension 9. Dyslipidemia 10. GERD. 11. Fatty liver 12. Depression 13. Osteoporosis 14. Umbilical hernia surgery, age 7. 15. Tubal ligation 16. Appendectomy 17. Right hip replacement 18. 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 Allergies Allergy/AdvReac Type Severity Reaction Status Date / Time bee venom protein (honey bee) Allergy Intermediate . Unverified 09/07/18 10:05 Home Medications Home Medications Medication Instructions Recorded Confirmed Type aspirin 81 mg PO DAILY 09/01/18 09/07/18 History cholecalciferol (vitamin D3) 5,000 unit PO DAILY 09/01/18 09/07/18 History [Vitamin D3] furosemide [Lasix] 20 mg PO DAILY 09/01/18 09/07/18 History metformin 1,000 mg PO BID 09/01/18 09/07/18 History potassium chloride 10 meq PO DAILY 09/01/18 09/07/18 History amlodipine [Norvasc] 5 mg PO QAM #30 tab 09/04/18 09/07/18 Rx cephalexin 500 mg PO QID 7 Days #28 cap 09/04/18 09/07/18 Rx losartan 50 mg PO BID #30 tab 09/04/18 09/07/18 Rx simvastatin 20 mg PO HS #30 tab 09/04/18 09/07/18 Rx carvedilol 25 mg tablet See Rx Instructions PO .COMPLEX 09/07/18 09/07/18 History Patient History Medical History CAD (coronary artery disease) Diabetes High blood pressure Surgical History H/O aortic valve replacement 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 - [facility] (cyst) History of appendectomy History of right hip replacement late S/P splenectomy Family History Father , about age 70 Melanoma Mother , age 80 Intracerebral hemorrhage Social History Preferred Language: Croatian Communication Ability: Effective Beliefs That Will Affect Care: None marital status: marital status details: live in [place]; 3 sons Current Living Situation: Spouse current occupational status: retired other: ran a [employer] near [place], [place] Feels Safe at Home: Yes Smoking Status: Former smoker Age Quit Using Tobacco: 56 packs per day: 1 Second Hand Exposure: No Hx Alcohol Use: Yes Alcohol type: wine Alcohol Intake Frequency: Holidays/Special Occasions Hx Substance Use: No Review of Systems Review of Systems: All systems reviewed & are unremarkable except as noted in HPI & below Physical Exam Physical Exam: General: NAD, AAO x3, well nourished. HEENT: Normocephalic. Atraumatic. Conjunctiva pink, no scleral icterus. Neck: 1/4 bilateral carotid bruits. The carotid upstrokes are brisk. No JVD. No HJR Heart: Regular normal S-1 and S-2 no S-3 or S-4 gallop. 3/6 medium pitched mid peaking systolic ejection murmur heard best at the right second intercostal space. PMI is not displaced. No RV heave. Lungs: Clear bilateral without rales , rhonchi, or wheeze. Abdomen: Normal bowel sounds. Soft. Nontender. No masses or organomegaly. No abdominal bruits. Extremities: No clubbing, cyanosis, or edema. Neuro: Cranial nerves grossly intact. No focal motor deficit. Results & Data Vital Signs (Past 12 Hours) Vital Signs Temp Pulse Resp BP Pulse Ox 07/22/19 15:55 37.1 C 53 L 21 173/71 H 95 09/03/18 12:06 169/76 H 09/03/18 07:31 36.7 C 56 L 18 208/75 H 98 Laboratory Results Laboratory Results - last 24 hr 09/02/18 09/02/18 09/03/18 16:55 20:24 05:38 WBC RBC Hgb Hct MCV MCH MCHC RDW Std Deviation RDW Coeff of Jose Plt Count MPV Sodium 142 Potassium 3.6 Chloride 108 H Carbon Dioxide 27 Anion Gap 7.0 BUN 10 Creatinine 0.69 Est Cr Clr Drug Dosing 91.4 Est GFR ( Amer) 98.0 Est GFR (Non-Af Amer) 84.6 BUN/Creatinine Ratio 14.6 Glucose 128 H POC Glucose 88 161 H Calcium 8.7 Vancomycin Trough 09/03/18 09/03/18 09/03/18 08:02 09:31 12:03 WBC RBC Hgb Hct MCV MCH MCHC RDW Std Deviation RDW Coeff of Jose Plt Count MPV Sodium Potassium Chloride Carbon Dioxide Anion Gap BUN Creatinine Est Cr Clr Drug Dosing Est GFR ( Amer) Est GFR (Non-Af Amer) BUN/Creatinine Ratio Glucose POC Glucose 148 H 126 H Calcium Vancomycin Trough 16.9 09/03/18 14:06 WBC 7.89 RBC 4.31 Hgb 12.7 Hct 38.3 MCV 88.9 MCH 29.5 MCHC 33.2 RDW Std Deviation 48.6 H RDW Coeff of Jose 14.8 H Plt Count 182 MPV 12.5 H Sodium Potassium Chloride Carbon Dioxide Anion Gap BUN Creatinine Est Cr Clr Drug Dosing Est GFR ( Amer) Est GFR (Non-Af Amer) BUN/Creatinine Ratio Glucose POC Glucose Calcium Vancomycin Trough
[2018-09-03] MEDS: AMLODIPINE BESYLATE 5 MG TAB PO SCH (17:41)
[2018-09-03] MEDS: NITROGLYCERIN 2% OINTMENT 30GM TUBE EXT SCH ×2 (17:42→22:33)
[2018-09-03] MEDS: SULFAMETHOXAZOLE/TRIMETHOPRIM DS 800/160MG TAB PO SCH (20:50)
[2018-09-03] MEDS ORDERED: SIMVASTATIN 20 MG TAB PO SCH (21:00)
[2018-09-04] MEDS: NITROGLYCERIN 2% OINTMENT 30GM TUBE EXT SCH ×2 (05:06→12:43)
[2018-09-04 05:53] LABS: Est GFR (African American) 79.4; Est GFR (Non-African American) 68.5
[2018-09-04] MEDS: INSULIN ASPART 100 UNITS/ML 3 ML PEN SC SCH ×2 (08:30→12:45)
[2018-09-04] MEDS: LOSARTAN POTASSIUM 50 MG TAB PO SCH (08:34)
[2018-09-04] MEDS: POTASSIUM CHLORIDE 10 MEQ TABCR PO SCH (08:34)
[2018-09-04] MEDS: CHOLECALCIFEROL 1,000 UNITS TAB PO SCH (08:34)
[2018-09-04] MEDS: AMLODIPINE BESYLATE 5 MG TAB PO SCH (08:34)
[2018-09-04] MEDS: CARVEDILOL 6.25 MG TAB PO SCH (08:34)
[2018-09-04] MEDS: SULFAMETHOXAZOLE/TRIMETHOPRIM DS 800/160MG TAB PO SCH (08:35)
[2018-09-04] MEDS: FUROSEMIDE 20 MG TAB PO SCH (08:35)
[2018-09-04] MEDS: ASPIRIN 81 MG ECTAB PO SCH (08:35)
[2018-09-04] MEDS ORDERED: AMLODIPINE BESYLATE 5 MG TAB PO SCH (09:00)
--- NOTE | 2018-09-04 09:13 | Cardiac Catheterization ---
Cardiac Cath Procedure: Brief Procedure Date September 04, 2018 Pre-Procedure Diagnosis Pre-Procedure Diagnosis: Angina AUC Score AUC Score: 7 Post-Procedure Diagnosis Post-Procedure Diagnosis: Moderate CAD and Normal LV Systolic Function Procedure(s) Performed Procedure(s) Performed: Coronary Angiography, Left Heart Cath and LV Angiography Loan Expeditor John Nunez MD Novelty Chain Maker(s) Darrin Melgar Estimated Blood Loss Estimated Blood Loss: <15cc Medication(s) Medication(s): Fentanyl (12.5 mcg IV), Heparin (5000 units IV), Lidocaine 1% (Local infiltration access site), Nicardipine (250 mcg intra-arterial after arterial sheath insertion and prior to sheath removal) and Versed (1 mg IV) Preliminary Findings Right dominant coronary anatomy Left main: Normal length and caliber, giving rise to left anterior descending a trivial ramus intermedius and a large left circumflex. No disease Left anterior descending: Type I in distribution, very modest in caliber ending short of the apex. Gives rise to moderate bifurcating diagonal branch at the end of its proximal third. The ostium of the left anterior descending has a 30% eccentric narrowing. The vessel at the bifurcation of the first diagonal is narrowed by 40% Left circumflex: Very large but nondominant giving rise to 2 small marginal branches then a large obtuse marginal before continuing along the AV groove to give rise to 3 posterior lateral branches. There are mild luminal irregularities in the left circumflex Right coronary artery: Dominant distribution but modest in caliber, long in length. It gives rise to a conus and sinoatrial branch shortly after its origin, a right ventricular branch in its midportion, at the AV groove a long butthin posterior descending artery reaching to the apex and along the AV groove a single posterior ventricular branch. There is diffuse coronary luminal irregularities of 30% or less throughout the right coronary artery LV angiography: Hyperdynamic LV function EF greater than 65% no mitral insufficiency LVEDP 10 Recommendations Recommendations: Medical Therapy and/or Counseling Specimens Specimens: None Fluids (cc crystalloids) Fluids (cc crystalloids): 75 Anesthesia Start time: 837, stop time: 901 Procedural Complication(s) None Disposition Recovery Room\PACU
[2018-09-04] MEDS ORDERED: ACETAMINOPHEN 325 MG TAB PO PRN (09:14)
[2018-09-04] MEDS ORDERED: SODIUM CHLORIDE 0.9% 1000ML 1,000 ML IV SCH (09:15)
[2018-09-04] MEDS: ENOXAPARIN INJ 40 MG/0.4 ML SYR SQ SCH (10:12)
--- NOTE | 2018-09-04 12:59 | Discharge Summary ---
Date of Service September 04, 2018 Admission HPI Per Admitting Provider 78yo female with history of bioprosthetic aortic valve, T2DM, post-splenectomy state, and HTN who presents with fever and chills starting about midnight last night. Prior to the fever/chills she had felt well over the last few days/weeks. Denies headache, sore throat, cough, congestion, ear pain, nausea, vomiting, diarrhea, dysuria. No new rashes. Just had normal heart cath at [facility] in [place] about 1 week ago. Lives in [place] with . No obvious insect bites or tick bites. No recent dental work. Denies travels or sick contacts. No pets at home. Principal Diagnosis cellulitis Discharge Exam Constitutional WD/WN, vitals as above Respiratory normal respiratory effort, lungs clear to auscultation Cardiovascular RRR, no murmur, no edema Gastrointestinal (Abdomen) Inspection/Auscultation: abdomen normal to inspection and normal bowel sounds; abdomen not distended and no abdominal edema Percussion/Palpation: abdomen soft; abdomen nontender Musculoskeletal no cyanosis or clubbing, extremities motor strength 5/5 Skin no rashes, warm and dry Neurologic moves all extremities and awake Psychiatric A+Ox3, euthymic affect Discharge Data Allergies Allergy/AdvReac Type Severity Reaction Status Date / Time bee venom protein (honey bee) Allergy Intermediate . Unverified 09/01/18 05:13 Consultations 09/01/18 06:09 ED Decision to Admit Stat 09/02/18 09:02 Consult Orthopedic Surgery Routine 09/03/18 16:12 Consult Cardiology Routine Ordered Studies 09/01/18 04:38 CT head/brain wo con Urgent 09/02/18 11:36 CT femur RT wo con Routine Hospital Course (1) Sepsis: source - likely RLE cellulitis. clinically improving blood cx's negative. no fever 72 hours urine cx negative. lyme's testing was negative; d/c doxy - low suspicion for any type of tick-borne illness. dc Rocephin and vancomyicin and start po Bactrim, will add Keflex for better strep coverage as well. (2) Cellulitis of leg, right: as above in "sepsis". the area of concern is directly over the scar from her right total hip replacement. CT did not reveal any suspicion for infection around or in prosthesis, did show soft tissue changes consistent with cellulitis. Dr. Troy reviewed and does not see any indication for surgery, signed off. (3) Essential (primary) hypertension: Resumed lasix and losartan, continue carvedilol- losartan increased to 50 mg bid from home dose of 25 mg bid. However BP continued to be as high as 200 systolically. Patient reported some chest pressure at times while at rest that resolves spontaneously. She has recently had a cardiac cath and has been undergoing workup for this chest pressure. - consulted cardiology - recommends adding amlodipine to current regimen and nitro paste with ongoing amlodipine at discharge - will decrease Coreg back to home dosing of 6.25 bid from 12.5 am and 6.25 pm as heart rate is running low to mid 50s now that she is no longer tachycardic from infection, - trop was negative 09/03 - Cardiology agreed that patient was ready for discharge and they will see her in follow up. - cautioned patient to change positions slowly with increased medications and to call her doctor if she has further chest pressure. She will check her bp daily at home and keep a log. - no further chest pressure overnight or today (4) DM w/o complication type II: Control adequate at this time. Hold metformin - resume for discharge Check ac/hs BSGs. DM diet. Novolog - sliding scale Adjust as needed. (5) Asplenia: At risk of encapsulated pathogens. Should be up-to-date on pneumococcal and HiB vaccines. Defer to PCP. Blood cultures negative to date. (6) Hyperlipidemia: Continue statin therapy - cardiology decreased Zocor to 20 mg daily (7) Morbid obesity with BMI of 40.0-44.9, adult: BMI 40. (8) DVT prophylaxis: lovenox 40mg daily inpatient PT/OT evals recommending continued PT/OT outpatient after discharge Total Time Total Time Spent Total Time Spent (In Minutes): greater than 30 minutes Discharge Plan Discharge Items Patient Disposition: Home - Self-Care Reason For Visit: SIRS,POSSIBLE EARLY SEPSIS Condition: Fair Discharge Goals: Decrease discomfort and Improve disease control Activity: Resume your previous activity Non-emergency contact: Primary Care Provider Call non-emergency contact if: you have any medication questions, your symptoms worsen, your pain is not controlled and you have a fever Follow-up/Referrals: Jessy Worthy MD [Primary Care Provider] - 09/07/18 10:00 am (Please, follow up at [facility] with Dr. Worthy on MondaySeptember 07 at 10:00 am. *If you need to change this appointment, call the office at [phone].) Ramo Judd [Physician Superintendent [facility]] - (Please, follow up at [facility] Cardiology Office in the [facility]. *A nurse from this office will call you with the appointment details. If you have any questions, call the office at [phone].) Diet: Regular Addtl Provider Instructions: Please check your blood pressure daily at home and keep a log to take to your provider at your next appointment. You should call your basket hand braider if you have further chest pressure or if you are becoming light headed or dizzy. Please call your doctor if your pulse is running below 50 beats per minute. Take your time standing up to avoid lightheadedness. Please see cardiology in the next couple of weeks for follow up. Prescriptions: New losartan 50 mg Tablet 50 mg PO BID Qty: 30 RF: 0 amlodipine [Norvasc] 5 mg Tablet 5 mg PO QAM Qty: 30 RF: 0 sulfamethoxazole-trimethoprim 800-160 mg Tablet 1 tab PO Q12 6 Days Qty: 12 RF: 0 cephalexin 500 mg Capsule 500 mg PO QID 7 Days Qty: 28 RF: 0 simvastatin 20 mg Tablet 20 mg PO HS Qty: 30 RF: 0 Continued aspirin 81 mg Tablet,Delayed Release (Dr/Ec) 81 mg PO DAILY RF: 0 metformin 1,000 mg Tablet Extended Release 24hr 1,000 mg PO BID RF: 0 cholecalciferol (vitamin D3) [Vitamin D3] 5,000 unit Tablet 5,000 unit PO DAILY RF: 0 potassium chloride 10 mEq Tablet Extended Release 10 meq PO DAILY RF: 0 furosemide [Lasix] 20 mg Tablet 20 mg PO DAILY RF: 0 carvedilol 6.25 mg Tablet PO BID RF: 0 Discontinued losartan 25 mg Tablet 25 mg PO BID RF: 0 simvastatin 40 mg Tablet PO HS RF: 0 Stand-Alone Forms: [facility] Discharge Orders: Discharge Order (Routine); Ordered 09/04/18 Ordered By: Traci Reza Admission Data Admit Date/Time: 09/01/18 08:29 Attending Provider: Aneudy Little Admit Provider: Esteban Velazquez Primary Care Provider: Jessy Worthy Other Providers: Robert Miner ; Masoud Troy ; Esteban Velazquez ; John Nunez Service: Medical
[2018-09-04] MEDS ORDERED: cephALEXin 500 MG CAP PO SCH (13:00)
== END 2018-09-04 15:25 | disposition home or self-care (01) | DRG 872 ==
LOC: ED 04:19 → SUATTDRO 08:29 → 2S 08:29 → 4W 09-02 15:37

== ENCOUNTER 2019-10-10 02:50 | Inpatient (IN) ==
[2019-10-10] MEDS ORDERED: PIPERACILLIN/TAZOBACTAM 4.5 GM/120 ML BAG IV ONE (03:24)
[2019-10-10] MEDS ORDERED: PIPERACILL/TAZOBAC CONSULT ACTIVE PRN ×2 (03:24→06:10)
[2019-10-10 04:06] LABS: Basophils # (auto) 0.04 K/uL (0-0.2); Basophils % (auto) 0.4 %; Eosinophils # (auto) 0.21 K/uL (0-0.5); Eosinophils % (auto) 2.2 %; Hematocrit (blood only) 35.5 % (37-47); Hemoglobin 11.6 g/dL (12.0-16.0); Immature Granulocytes # (auto) 0.02 K/uL (0.00-0.02); Immature Granulocytes % (auto) 0.2 %; Lymphocytes # (auto) 1.98 K/uL (1.2-3.4); Lymphocytes % (auto) 20.4 %; Mean Corpuscular Hemoglobin 29.1 pg (25-34); Mean Corpuscular Hgb Conc 32.7 g/dL (32-36); Mean Platelet Volume 11.7 fL (7.4-10.4); Monocytes # (auto) 0.77 K/uL (0.11-0.59); Monocytes % (auto) 7.9 %; Neutrophils # (auto) 6.69 K/uL (1.4-6.5); Neutrophils % (auto) 68.9 %; Platelet Count 195 K/uL (130-400); RDW Standard Deviation 48.9 fL (36.4-46.3); Red Blood Count 3.99 M/uL (4.2-5.4); White Blood Count 9.71 K/uL (4.8-10.8)
[2019-10-10 04:22] LABS: Albumin Level 3.4 gm/dl (3.4-5.0); BUN Creatinine Ratio 18.4 (10-20); Calcium 8.9 mg/dl (8.5-10.1); Creatinine Clr Calc Pharmacy 85.9 ml/min; Est GFR (African American) 92.1; Est GFR (Non-African American) 79.4; Potassium 4.1 mmol/L (3.5-5.1)
[2019-10-10 04:25] LABS: Bilirubin,Total 0.3 mg/dl (0.2-1); Globulin 3.5 gm/dl (2.5-4.0); Total Protein 6.9 gm/dl (6.4-8.2)
[2019-10-10] MEDS ORDERED: FUROSEMIDE 40 MG/4 ML VIAL IV STA ×2 (05:01→06:10)
[2019-10-10] MEDS ORDERED: DAPTOmycin 500 MG in SYRINGE 0 ML IV ONE (05:07)
[2019-10-10] MEDS ORDERED: DAPTOMYCIN CONSULT ACTIVE PRN ×2 (05:07→07:16)
--- NOTE | 2019-10-10 05:07 | Emergency Department Note ---
History of Present Illness General Chief complaint: Infection Source: patient, RN notes reviewed and old records reviewed Mode of arrival: ambulatory Limitations: no limitations History of Present Illness Provider complaint: Positive blood cultues Onset (ago): day(s) 2 Location: lower extremity Radiation: non-radiation Severity: moderate Pain Consistency: + intermittent Maximum Pain Intensity: 7 Current Pain Intensity: 7 Quality: + aching Relieved By: + immobilization Exacerbated By: + movement Associated symptoms: + denies other symptoms; no chest pain, no diaphoresis, no fever/chills, no loss of appetite, no nausea/vomiting and no shortness of breath Treatments prior to arrival: other (Oral antibiotics) This is a 79-year-old female with a history of asplenia who presents the emergency department complaining of positive blood cultures. The patient was phoned at home tonight and was told to come to the emergency department over positive blood cultures. Patient denies any fevers or chills. She was started on antibiotics 2 days ago and has continued those. Patient has no other complaints. Home Medications Home Medications Medication Instructions Recorded Confirmed Type aspirin 81 mg PO DAILY 09/01/18 10/10/19 History cholecalciferol (vitamin D3) 5,000 unit PO DAILY 09/01/18 10/10/19 History [Vitamin D3] potassium chloride 10 meq PO DAILY 09/01/18 10/10/19 History amlodipine [Norvasc] 5 mg PO QAM #30 tab 09/04/18 10/10/19 Rx losartan 50 mg PO BID #30 tab 09/04/18 10/10/19 Rx simvastatin 20 mg PO HS #30 tab 09/04/18 10/10/19 Rx furosemide 20 mg tablet 20 mg PO DAILY PRN 12/12/18 10/10/19 History carvedilol 25 mg tablet 25 mg PO AMPM tab 05/22/19 10/10/19 History cephalexin [Keflex] 500 mg PO QID 10 Days #40 cap 10/09/19 10/10/19 Rx metformin 1,000 mg PO BIDM 10/09/19 10/10/19 History sulfamethoxazole-trimethoprim 1 tab PO BID #20 tab 10/09/19 10/10/19 Rx [Bactrim DS] Allergies Allergy/AdvReac Type Severity Reaction Status Date / Time bee venom protein (honey bee) Allergy Intermediate . 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 S/P splenectomy Family History Father , about age 70 Melanoma Mother , age 80 Intracerebral hemorrhage Denies family history of Ovarian cancer Prostate cancer Myocardial infarction Breast cancer Colorectal cancer Social History Smoking Status: Former smoker Age Quit Using Tobacco: 58; packs per day: 1; Second Hand Exposure: No; Hx Alcohol Use: Yes Alcohol type: wine Hx Substance Use: No Preferred Language: Central African Communication Ability: Effective Segment Block Layer Required: No Beliefs That Will Affect Care: None marital status: marital status details: live in [place]; 3 sons Current Living Situation: Spouse current occupational status: retired other: ran a [employer] near [place], [place] Feels Safe at Home: Yes caffeine: Yes Dental Care, Regularly: No Physical Activity Frequency: Does not Exercise Seatbelt Use: always Sunscreen Use: Yes Review of Systems A total of 10 systems reviewed and were otherwise negative Physical Exam Vital Signs Vital Signs - 24 hr 10/10/19 04:00 10/10/19 04:07 10/10/19 04:08 Temperature 37.3 C Temperature Source Oral Pulse Rate 56 L 58 L Pulse Rate from SpO2 Sensor 59 L Respiratory Rate 18 22 24 Respiratory Effort / Characteristics Non-Labored Spontaneous Non-Labored Spontaneous Respiratory Depth Normal Blood Pressure 195/71 H Blood Pressure Mean 112 Pulse Oximetry 93 95 93 Oxygen Delivery Method Room Air Room Air Room Air Sepsis New/Unexplained Change in Mental Status No Sepsis Action Taken by Nursing No Action Required 10/10/19 04:10 10/10/19 04:30 10/10/19 04:46 Temperature Temperature Source Pulse Rate 58 L 60 Pulse Rate from SpO2 Sensor 59 L 60 Respiratory Rate 23 20 21 Respiratory Effort / Characteristics Non-Labored Spontaneous Respiratory Depth Blood Pressure 195/71 H Blood Pressure Mean 133 Pulse Oximetry 94 92 93 Oxygen Delivery Method Room Air Room Air Room Air Sepsis New/Unexplained Change in Mental Status Sepsis Action Taken by Nursing 10/10/19 04:47 10/10/19 05:00 Temperature Temperature Source Pulse Rate 60 Pulse Rate from SpO2 Sensor 60 Respiratory Rate 24 20 Respiratory Effort / Characteristics Non-Labored Spontaneous Respiratory Depth Blood Pressure 191/87 H Blood Pressure Mean 124 Pulse Oximetry 92 92 Oxygen Delivery Method Room Air Room Air Sepsis New/Unexplained Change in Mental Status Sepsis Action Taken by Nursing VITAL SIGNS - Vital signs and nursing notes were reviewed. GENERAL - 79-year-old female appearing stated age who is in no acute distress. Communicates well with provider and answers questions appropriately. SKIN - Without rashes. HEAD - NC/AT. EYES - PERRL with EOMI bilaterally. Sclera anicteric. Palpebral conjunctiva pink and moist with no injection noted. EARS - No deformities of external structures noted on gross examination bilaterally. No pain elicited with palpation of the tragus bilaterally. External auditory canals without discharge or otorrhea. Tympanic membranes pearly freedman without retraction or bulging. No fluid or purulent material visualized behind the TM. Handle of malleus, umbo, cone of light, pars tensa/flaccid all easily visualized. NOSE - Midline and without cyanosis. No epistaxis or purulent drainage noted. Septum midline without deviation or septal hematoma noted. MOUTH/OROPHARYNX - Without perioral cyanosis. Buccal mucosa pink and moist and without leukoplakia. Tongue midline with equal elevation of palate bilaterally. No tonsillar hypertrophy, erythema, or exudates noted. dentition noted. NECK - Neck with FROM. Supple to palpation. lymphadenopathy noted. No nuchal rigidity. LUNGS - Chest wall symmetric without accessory muscle use, intercostals re tractions, or central cyanosis. Normal vesicular breath sounds CTA B/L. + rales, No rhonchi appreciated. CARDIAC - RRR with S1/S2. No murmur, rubs, or gallops appreciated. ABDOMEN - Abdominal contour without pulsations or visible masses. BS normoactive all four quadrants. No tenderness, palpable masses, hepatosplenomegaly, or ascites noted. EXTREMITIES - No clubbing or peripheral cyanosis. No pretibial edema present. +3/5 radial, posterior tibial, and dorsalis pedis pulses palpated throughout. +5/5 strength noted in UE/LE bilaterally. NEUROLOGIC - Cranial nerves II through XII grossly intact. Sensory intact to light touch throughout. Patellar reflexes +2/4. PSYCH - A&Ox3 and cooperates fully with examiner. Pt is very pleasant and interacts well with examiner. Course Administered Medications Acetaminophen (Acetaminophen 325 Mg Tab) 650 mg PO Q4H PRN PRN Reason: pain/fever Stop: 11/09/19 06:09 Last Admin: 10/10/19 21:03 Dose: 650 mg Documented by: [id number] Albuterol (Albut/Ipratrop 3mg/0.5mg Neb 3 Ml Vial) 3 ml NEB QIDR PRN PRN Reason: Shortness Of Breath Or Wheezing Stop: 11/09/19 10:59 Last Admin: 10/10/19 19:24 Dose: 3 ml Documented by: [id number] Admin: 10/10/19 14:42 Dose: 3 ml Documented by: [id number] Admin: 10/10/19 10:35 Dose: 3 ml Documented by: [id number] Amlodipine Besylate (Amlodipine Besylate 5 Mg Tab) 5 mg PO QAM [facility] Stop: 11/09/19 08:59 Last Admin: 10/10/19 08:13 Dose: 5 mg Documented by: [id number] Aspirin (Aspirin 81 Mg Ectab) 81 mg PO DAILY GUILLAUME Stop: 11/09/19 08:59 Last Admin: 10/10/19 08:13 Dose: 81 mg Documented by: [id number] Carvedilol (Carvedilol 25 Mg Tab) 25 mg PO BID [facility] Stop: 11/09/19 08:59 Last Admin: 10/10/19 20:59 Dose: 25 mg Documented by: [id number] Admin: 10/10/19 08:13 Dose: 25 mg Documented by: [id number] Enoxaparin Sodium (Enoxaparin Inj 40 Mg/0.4 Ml Syr) 40 mg SQ QAM [facility] Stop: 11/09/19 08:59 Last Admin: 10/10/19 08:14 Dose: Not Given Documented by: [id number] Furosemide 40 mg/ Syringe 4 mls @ 4 mls/min IV [id number] GUILLAUME Stop: 11/09/19 20:59 Last Admin: 10/10/19 20:59 Dose: 4 mls/min Documented by: [id number] Insulin Aspart (Insulin Aspart 100 Units/Ml 3 Ml Pen) 0 units SC ACHS GUILLAUME Stop: 11/09/19 07:29 Last Admin: 10/10/19 21:01 Dose: 3 units Documented by: [id number] Cosigned by: [id number] Admin: 10/10/19 17:20 Dose: 5 units Documented by: [id number] Cosigned by: [id number] Admin: 10/10/19 12:37 Dose: 4 units Documented by: [id number] Cosigned by: [id number] Admin: 10/10/19 08:16 Dose: 3 units Documented by: [id number] Cosigned by: [id number] Losartan Potassium (Losartan Potassium 50 Mg Tab) 50 mg PO BID GUILLAUME Stop: 11/09/19 08:59 Last Admin: 10/10/19 21:00 Dose: 50 mg Documented by: [id number] Admin: 10/10/19 08:14 Dose: 50 mg Documented by: [id number] Magnesium Oxide (Magnesium Oxide 400 Mg Tab) 400 mg PO BID GUILLAUME Stop: 11/09/19 20:59 Last Admin: 10/10/19 21:01 Dose: 400 mg Documented by: [id number] Simvastatin (Simvastatin 20 Mg Tab) 20 mg PO HS GUILLAUME Stop: 11/09/19 20:59 Last Admin: 10/10/19 21:00 Dose: 20 mg Documented by: [id number] Discontinued Medications Furosemide (Furosemide 40 Mg/4 Ml Vial) 40 mg IV NOW STA Stop: 10/10/19 05:02 Last Admin: 10/10/19 05:18 Dose: Not Given Documented by: [id number] Furosemide (Furosemide 40 Mg/4 Ml Vial) 40 mg IV NOW STA Stop: 10/10/19 06:11 Last Admin: 10/10/19 06:32 Dose: Not Given Documented by: [id number] Piperacillin Sod/Tazobactam Sod (Zosyn) 4.5 gm in 120 mls @ 240 mls/hr IV NOW ONE Stop: 10/10/19 03:53 Last Infusion: 10/10/19 05:18 Dose: 0 mls/hr Documented by: [id number] Admin: 10/10/19 04:44 Dose: 240 mls/hr Documented by: [id number] Daptomycin 500 mg/ Syringe 10 mls @ 5 mls/min IV NOW ONE; Protocol Stop: 10/10/19 05:08 Last Admin: 10/10/19 06:31 Dose: 5 mls/min Documented by: [id number] Furosemide 40 mg/ Syringe 4 mls @ 4 mls/min IV ONE ONE Stop: 10/10/19 16:16 Last Admin: 10/10/19 16:50 Dose: 4 mls/min Documented by: [id number] Potassium Chloride (Potassium Chloride 20 Meq Tabcr) 20 meq PO ONE ONE Stop: 10/10/19 16:16 Last Admin: 10/10/19 17:20 Dose: 20 meq Documented by: [id number] Medical Decision Making Differential Diagnosis Cellulitis, abscess, MRSA infection, DVT, necrotizing fasciitis, dermatitis, drug eruption, allergic reaction, as well as other pathologies. Medical Records Attestation: I reviewed the patient's medical records. Home Medications Current Medication List: was personally reviewed by me Laboratory Data Attestation: I reviewed the patient's lab results. Result diagrams: 10/10/19 03:45 10/10/19 03:45 Lab Results 10/10/19 10/10/19 10/10/19 Range/Units 03:45 03:45 03:45 WBC 9.71 (4.8-10.8) K/uL RBC 3.99 L (4.2-5.4) M/uL Hgb 11.6 L (12.0-16.0) g/dL Hct 35.5 L (37-47) % MCV 89.0 (80-100) fL MCH 29.1 (25-34) pg MCHC 32.7 (32-36) g/dL RDW Std Deviation 48.9 H (36.4-46.3) fL RDW Coeff of Jose 15.0 H (11.5-14.5) % Plt Count 195 (130-400) K/uL MPV 11.7 H (7.4-10.4) fL Immature Gran % (Auto) 0.2 % Neut % (Auto) 68.9 % Lymph % (Auto) 20.4 % [place] % (Auto) 7.9 % Eos % (Auto) 2.2 % Baso % (Auto) 0.4 % Neut # (Auto) 6.69 H (1.4-6.5) K/uL Lymph # (Auto) 1.98 (1.2-3.4) K/uL [place] # (Auto) 0.77 H (0.11-0.59) K/uL Eos # (Auto) 0.21 (0-0.5) K/uL Baso # (Auto) 0.04 (0-0.2) K/uL Immature Gran # (Auto) 0.02 (0.00-0.02) K/uL Sodium 140 (136-145) mmol/L Potassium 4.1 (3.5-5.1) mmol/L Chloride 107 (98-107) mmol/L Carbon Dioxide 29 (21-32) mmol/L Anion Gap 4.0 (3-11) BUN 13 (7-18) mg/dl Creatinine 0.73 (0.6-1.2) mg/dl Est Cr Clr Drug Dosing 85.9 ml/min Est GFR ( Amer) 92.1 Est GFR (Non-Af Amer) 79.4 BUN/Creatinine Ratio 18.4 (10-20) Glucose 130 H (70-99) mg/dl Calcium 8.9 (8.5-10.1) mg/dl Phosphorus 2.9 (2.5-4.9) mg/dl Magnesium 1.8 (1.8-2.4) mg/dl Total Bilirubin 0.3 (0.2-1) mg/dl AST 20 (15-37) U/L ALT 26 (12-78) U/L Alkaline Phosphatase 51 (45-117) U/L NT-Pro-B Natriuret Pep 2001 H (0-1800) pg/ml Total Protein 6.9 (6.4-8.2) gm/dl Albumin 3.4 (3.4-5.0) gm/dl Globulin 3.5 (2.5-4.0) gm/dl Albumin/Globulin Ratio 1.0 (0.9-2) Procalcitonin (0-0.5) ng/ml Urine Color Urine Appearance (Clear) Urine pH (4.5-7.5) Ur Specific [place] (1.000-1.030) Urine Protein (Negative) Urine Glucose (UA) (Negative) Urine Ketones (Negative) Urine Blood (Negative) Urine Nitrite (Negative) Urine Bilirubin (Negative) Urine Urobilinogen (Negative) Ur Leukocyte Esterase (Negative) 10/10/19 10/10/19 Range/Units 03:45 04:38 WBC (4.8-10.8) K/uL RBC (4.2-5.4) M/uL Hgb (12.0-16.0) g/dL Hct (37-47) % MCV (80-100) fL MCH (25-34) pg MCHC (32-36) g/dL RDW Std Deviation (36.4-46.3) fL RDW Coeff of Jose (11.5-14.5) % Plt Count (130-400) K/uL MPV (7.4-10.4) fL Immature Gran % (Auto) % Neut % (Auto) % Lymph % (Auto) % [place] % (Auto) % Eos % (Auto) % Baso % (Auto) % Neut # (Auto) (1.4-6.5) K/uL Lymph # (Auto) (1.2-3.4) K/uL [place] # (Auto) (0.11-0.59) K/uL Eos # (Auto) (0-0.5) K/uL Baso # (Auto) (0-0.2) K/uL Immature Gran # (Auto) (0.00-0.02) K/uL Sodium (136-145) mmol/L Potassium (3.5-5.1) mmol/L Chloride (98-107) mmol/L Carbon Dioxide (21-32) mmol/L Anion Gap (3-11) BUN (7-18) mg/dl Creatinine (0.6-1.2) mg/dl Est Cr Clr Drug Dosing ml/min Est GFR ( Amer) Est GFR (Non-Af Amer) BUN/Creatinine Ratio (10-20) Glucose (70-99) mg/dl Calcium (8.5-10.1) mg/dl Phosphorus (2.5-4.9) mg/dl Magnesium (1.8-2.4) mg/dl Total Bilirubin (0.2-1) mg/dl AST (15-37) U/L ALT (12-78) U/L Alkaline Phosphatase (45-117) U/L NT-Pro-B Natriuret Pep (0-1800) pg/ml Total Protein (6.4-8.2) gm/dl Albumin (3.4-5.0) gm/dl Globulin (2.5-4.0) gm/dl Albumin/Globulin Ratio (0.9-2) Procalcitonin 0.13 (0-0.5) ng/ml Urine Color Yellow Urine Appearance Clear (Clear) Urine pH 7.0 (4.5-7.5) Ur Specific [place] 1.020 (1.000-1.030) Urine Protein Negative (Negative) Urine Glucose (UA) Negative (Negative) Urine Ketones Negative (Negative) Urine Blood Negative (Negative) Urine Nitrite Negative (Negative) Urine Bilirubin Negative (Negative) Urine Urobilinogen Negative (Negative) Ur Leukocyte Esterase Negative (Negative) Imaging Data Attestation: I personally reviewed and interpreted this imaging study as follows: My Impression: 1 view of the chest is consistent with pulmonary edema. There is no evidence of pneumonia or pneumothorax. Radiologist's Impression: Ultrasound does not show any evidence of drainable fluid collection ECG Data Attestation: I personally reviewed and interpreted this ECG as follows: Indication: + SOB/dyspnea Rate (beats per minute): 55 Rhythm: + sinus bradycardia (with SA) ECG Intervals/blocks: + Normal QT-c (426) ECG [place]: + Normal ECG ST segments: no ST depression and no ST elevation Comparison ECG Date: from (09/03/2018) Change: no significant change MDM Narrative This is a [employer] downtime chart. This is a 79-year-old female who was sent back into the emergency department over positive blood cultures during a period of high-volume and high acuity. The patient has a history of resection of her spleen and blood cultures were obtained while she was being treated for a cellulitic area on her right leg. The patient presents during a period of high-volume high acuity. An IV was established. The patient was given Zosyn as well as daptomycin. She was also given Lasix for pulmonary edema on her chest x-ray. I did discuss the case with the hospitalist service who did agree to admit the patient. Patient is in agreement with the treatment plan. Patient was seen and evaluated as above in room A3. Review was performed of nursing notes and vital signs. I did review pertinent previous visits and patient history. After obtaining a thorough history and physical examination the above work up was performed. An order was placed for continuous cardiac monitoring. The monitor shows a rate of 60 with Normal SInus rhythm. The patient was evaluated during the global COVID-19 pandemic, and that diagnosis was suspected/considered upon their initial presentation. Their evaluation, treatment and testing was consistent with current guidelines for patients who present with complaints or symptoms that may be related to COVID- 19. Impression & Plan Cellulitis of right leg, Acute on chronic diastolic (congestive) heart failure Discharge Plan Visit Data Chief Complaint: Infection ED Provider: Dennis Garcia Discharge Problem: Cellulitis of right leg, Acute on chronic diastolic (congestive) heart failure Patient Disposition: Admitted As Inpatient Discharge Instructions Interventions: ED Discharge Assessment Last Done: 10/10/19 05:53
[2019-10-10 05:08] LABS: Appearance Urine Clear (Clear); Bilirubin Urine Negative (Negative); Blood Urine Negative (Negative); Color Urine Yellow; Glucose Urine UA Negative (Negative); Ketones Urine Negative (Negative); Leukocyte Esterase Urine Negative (Negative); Nitrite Urine Negative (Negative); Protein Urine Negative (Negative); Urobilinogen Urine Negative (Negative)
--- NOTE | 2019-10-10 05:38 | History & Physical Report ---
Date of Service October 10, 2019 Assessment & Plan (1) Bacteremia: 79yo C female presenting with bacteremia. Blood cultures from 09 Oct 2019 +2/2 Gram positive cocci in anaerobic bottles. Patient with fever/rigors/cellulitis of RLE. Cellulitis is most likely source of infection. She is asplenic and has bioprosthetic aortic valve, sternotomy wires and a prosthetic right hip as well. Presently afebrile, HD stable, non-toxic in appearance. -Repeat blood cultures sent from ER, follow results -Follow speciation/sensitivities -Empiric Vancomycin and Zosyn for now -Check 2D echo - +bacteremia, +bioprosthetic valve, +murmur and possible pulmonary edema/CHF Present on Admission?: Yes (2) Cellulitis of right leg: As above, patient with cellulitis of RLE, patient with asplenia -Vancomycin and Zosyn -Monitor area of redness for progression Present on Admission?: Yes (3) DM (diabetes mellitus), type 2: Fairly well controlled. Last ZcnB8D=6.1 on 10/01/19. Blood sugar well controlled today -Hold Metformin for now -ISS, goal blood sugar 100 - 140 Present on Admission?: Yes (4) S/P AVR (aortic valve replacement): Noted -Check Echo to evaluate valve Present on Admission?: Yes (5) Morbid obesity with BMI of 40.0-44.9, adult: Noted. -Encourage lifestyle modification Present on Admission?: Yes (6) Asplenia: Patient reports being UTD on her immunizations. Immunocompromised host, at increased risk for sepsis and infection from encapsulated organisms -Follow cultures as above -Empiric antibiotics as above Present on Admission?: Yes (7) Essential (primary) hypertension: Chronic. Stable -Continue Carvedilol 25mg po BID -Continue Amlodipine 5mg po daily -Continue Losartan 50mg po BID -Continue to monitor Present on Admission?: Yes (8) SOB (shortness of breath): Progressive dyspnea, +bibasilar crackles on exam. CXR with cardiomegaly and bilateral airspace opacities, ?developing CHF/pulmonary edema -Check BNP -Lasix 40mg IV x 1, monitor I/O -Echo as above Present on Admission?: Yes (9) Hyperlipidemia: Chronic. Stable -Continue Simvastatin F/E/N - Diuresis with Lasix as above, monitor electroltyes, AHA/CC diet as tolerated Ppx - Lovenox Code - Full Dispo - Admit to medical floor with telemetry History of Present Illness Chief Complaint: bacteremia Primary Care Provider: Charity Fowler MD Paola Castle is a 79yo C female with history of asplenia, bioprosthetic AVR, DM, CAD, HTN, HLP presenting with bacteremia. Patient was seen in the ER yesterday, 09 Oct 2019 with complaint of fever to 101/shaking chills/RLE cellulitis x 2 days. She had blood cultures drawn and was treated with IV Ceftriaxone and discharged home on Bactrim and Keflex. Patient was called this morning because her blood cultures grew gram positive cocci in 2/2 anaerobic bottles. Patient reports that the redness has increased despite taking the oral a ntibiotics. Also with some tenderness. No additional complaints at this time. Patient reports progressive dyspnea over the last few months as well as cough. No concerns for coronavirus exposure. ER Course: Zosyn, Daptomycin, Lasix Allergies Allergy/AdvReac Type Severity Reaction Status Date / Time bee venom protein (honey bee) Allergy Intermediate . Verified 10/10/19 04:08 Home Medications Home Medications Medication Instructions Recorded Confirmed Type aspirin 81 mg PO DAILY 09/01/18 10/10/19 History cholecalciferol (vitamin D3) 5,000 unit PO DAILY 09/01/18 10/10/19 History [Vitamin D3] potassium chloride 10 meq PO DAILY 09/01/18 10/10/19 History amlodipine [Norvasc] 5 mg PO QAM #30 tab 09/04/18 10/10/19 Rx losartan 50 mg PO BID #30 tab 09/04/18 10/10/19 Rx simvastatin 20 mg PO HS #30 tab 09/04/18 10/10/19 Rx furosemide 20 mg tablet 20 mg PO DAILY PRN 12/12/18 10/10/19 History carvedilol 25 mg tablet 25 mg PO AMPM tab 05/22/19 10/10/19 History cephalexin [Keflex] 500 mg PO QID 10 Days #40 cap 10/09/19 10/10/19 Rx metformin 1,000 mg PO BIDM 10/09/19 10/10/19 History sulfamethoxazole-trimethoprim 1 tab PO BID #20 tab 10/09/19 10/10/19 Rx [Bactrim DS] Past Med/Surg History Medical History (Updated 10/10/19 @ 05:36 by Renetta Beatty DO) Abdominal distension Arthritis Asplenia CAD (coronary artery disease) Carotid stenosis Chronic dyspnea Diverticulosis of colon DM (diabetes mellitus), type 2 Eczema Essential (primary) hypertension Hyperlipidemia Irritable bowel syndrome Morbid obesity with BMI of 40.0-44.9, adult Nonalcoholic fatty liver disease Nontoxic multinodular goiter Seborrheic keratosis Urinary incontinence Surgical History 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 (cyst) History of appendectomy History of right hip replacement late History of tubal ligation S/P AVR (aortic valve replacement) S/P splenectomy Family History Father , about age 70 Melanoma Mother , age 80 Intracerebral hemorrhage Denies family history of Ovarian cancer Prostate cancer Myocardial infarction Breast cancer Colorectal cancer Social History Smoking Status: Former smoker Age Quit Using Tobacco: 58; packs per day: 1; Second Hand Exposure: No; Hx Alcohol Use: Yes Alcohol type: wine Hx Substance Use: No Preferred Language: Setswana Communication Ability: Effective 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 [employer] Required: No Beliefs That Will Affect Care: None marital status: marital status details: live in [place]; 3 sons Current Living Situation: Spouse current occupational status: retired other: ran a [employer] near [place], [place] Feels Safe at Home: Yes caffeine: Yes Dental Care, Regularly: No Physical Activity Frequency: Does not Exercise Seatbelt Use: always Sunscreen Use: Yes Review of Systems Review of Systems: All systems reviewed & are unremarkable except as noted in HPI & below Physical Exam Physical Exam: General: elderly patient resting comfortably, NAD, non-toxic in appearance, AA&O x 4 Skin: warm, dry, redness of right lateral and posterior thigh, marked with skin pen from prior ER visit yesterday - redness extends slightly beyond border, no crepitus/bullae/streaking HEENT: NC/AT, PERRL, EOMI, anicteric sclera, conjunctiva without injection, external ear normal to inspection and nontender, nares patent, moist mucus membranes, dentition intact, no oropharyngeal lesions, neck supple, trachea midline, no LAD, no thyromegaly, no JVD Heart: +S1/S2, regular, 3/6 RADHA at right 2nd ICS with radiation across precordium Lungs: equal air entry bilaterally, +crackles in bilateral bases Abd: +BS, soft, NT/ND, firm palpable mass in LUQ, nontender Ext: warm, 2+ pulses in UE/LE bilaterally, no clubbing/cyanosis or edema Neuro: nonfocal, patient AA&O x 4, speech intact, no facial droop, moving all extremities on command with equal strength 5/5, ambulates with cane Results & Data Results & Data ([facility]) Vital Signs (Past 12 Hours) Vital Signs Temp Pulse Resp BP Pulse Ox 10/10/19 05:00 20 92 10/10/19 04:47 60 24 191/87 H 92 10/10/19 04:46 60 21 93 10/10/19 04:30 20 92 10/10/19 04:10 58 L 23 195/71 H 94 10/10/19 04:08 58 L 24 93 10/10/19 04:07 37.3 C 56 L 22 195/71 H 95 10/10/19 04:00 18 93 Laboratory Results Lab Results 10/10/19 10/10/19 10/10/19 Range/Units 03:45 03:45 04:38 WBC 9.71 (4.8-10.8) K/uL RBC 3.99 L (4.2-5.4) M/uL Hgb 11.6 L (12.0-16.0) g/dL Hct 35.5 L (37-47) % MCV 89.0 (80-100) fL MCH 29.1 (25-34) pg MCHC 32.7 (32-36) g/dL RDW Std Deviation 48.9 H (36.4-46.3) fL RDW Coeff of Jose 15.0 H (11.5-14.5) % Plt Count 195 (130-400) K/uL MPV 11.7 H (7.4-10.4) fL Immature Gran % (Auto) 0.2 % Neut % (Auto) 68.9 % Lymph % (Auto) 20.4 % [place] % (Auto) 7.9 % Eos % (Auto) 2.2 % Baso % (Auto) 0.4 % Neut # (Auto) 6.69 H (1.4-6.5) K/uL Lymph # (Auto) 1.98 (1.2-3.4) K/uL [place] # (Auto) 0.77 H (0.11-0.59) K/uL Eos # (Auto) 0.21 (0-0.5) K/uL Baso # (Auto) 0.04 (0-0.2) K/uL Immature Gran # (Auto) 0.02 (0.00-0.02) K/uL Sodium 140 (136-145) mmol/L Potassium 4.1 (3.5-5.1) mmol/L Chloride 107 (98-107) mmol/L Carbon Dioxide 29 (21-32) mmol/L Anion Gap 4.0 (3-11) BUN 13 (7-18) mg/dl Creatinine 0.73 (0.6-1.2) mg/dl Est Cr Clr Drug Dosing 85.9 ml/min Est GFR ( Amer) 92.1 Est GFR (Non-Af Amer) 79.4 BUN/Creatinine Ratio 18.4 (10-20) Glucose 130 H (70-99) mg/dl Calcium 8.9 (8.5-10.1) mg/dl Total Bilirubin 0.3 (0.2-1) mg/dl AST 20 (15-37) U/L ALT 26 (12-78) U/L Alkaline Phosphatase 51 (45-117) U/L Total Protein 6.9 (6.4-8.2) gm/dl Albumin 3.4 (3.4-5.0) gm/dl Globulin 3.5 (2.5-4.0) gm/dl Albumin/Globulin Ratio 1.0 (0.9-2) Urine Color Yellow Urine Appearance Clear (Clear) Urine pH 7.0 (4.5-7.5) Ur Specific [place] 1.020 (1.000-1.030) Urine Protein Negative (Negative) Urine Glucose (UA) Negative (Negative) Urine Ketones Negative (Negative) Urine Blood Negative (Negative) Urine Nitrite Negative (Negative) Urine Bilirubin Negative (Negative) Urine Urobilinogen Negative (Negative) Ur Leukocyte Esterase Negative (Negative) Diagnostic Findings US - no visualized fluid collection CXR - by my interpretation - cardiomegaly, bilateral airspace opacities, s/p sternotomy and AVR ECG Additional Comments: EKG with sinus bradycardia at 55bpm, sinus arrhythmia, normal axis, intervals, no acute ischemic changes Code Status & VTE Plan Code Status FULL PG Care Time/CCT Total # of Minutes Spent Total Time Spent with Patient: Total time spent is greater than 50% in coordination of care (as documented) at patient's floor/unit and/or counseling patient: Coding Level of Care Code 34457 Initial Inpt Care Lvl 3 Diagnoses Bacteremia R78.81 Cellulitis of right leg L03.115 DM (diabetes mellitus), type 2 E11.9 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 use: without senior care use Diabetes mellitus complication status: without complication S/P AVR (aortic valve replacement) Z95.2 Morbid obesity with BMI of 40.0-44.9, adult E66.01; Z68.41 Asplenia Q89.01 Essential (primary) hypertension I10 SOB (shortness of breath) R06.02 Hyperlipidemia E78.2 Hyperlipidemia type: mixed hyperlipidemia (1) DM (diabetes mellitus), type 2 Diabetes mellitus senior care insulin use: without senior care use Diabetes mellitus complication status: without complication Qualified Code(s): E11.9 - Type 2 diabetes mellitus without complications (2) Hyperlipidemia Hyperlipidemia type: mixed hyperlipidemia Qualified Code(s): E78.2 - Mixed hyperlipidemia
[2019-10-10] MEDS ORDERED: VANCOMYCIN HCL 1,000 MG in SODIUM CHLORIDE 0.9% 250 ML IV SCH (06:10)
[2019-10-10] MEDS ORDERED: DEXTROSE 50% 50 ML SYRINGE IV PRN (06:10)
[2019-10-10] MEDS ORDERED: CARBOHYDRATES FOR HYPOGLYCEMIA PO PRN (06:10)
[2019-10-10] MEDS ORDERED: GLUCOSE 10 TABS/TUBE PO PRN (06:10)
[2019-10-10] MEDS ORDERED: GLUCAGON FOR INJ 1 MG VIAL SQ PRN (06:10)
[2019-10-10] MEDS ORDERED: GLUCOSE 40% GEL 15 GM TUBE PO PRN (06:10)
[2019-10-10] MEDS ORDERED: VANCOMYCIN CONSULT ACTIVE PRN (06:10)
[2019-10-10] MEDS ORDERED: ACETAMINOPHEN 325 MG TAB PO PRN (06:10)
[2019-10-10 07:26] LABS: Magnesium 1.8 mg/dl (1.8-2.4); Phosphorus 2.9 mg/dl (2.5-4.9)
--- NOTE | 2019-10-10 07:55 | Ultrasound Report ---
US soft tissue ext ltd CLINICAL HISTORY: abscess?. Right thigh swelling. COMPARISON STUDY: None. FINDINGS: Real-time sonographic imaging of the right posterior lateral thigh was performed with repre sentative images submitted. No fluid collections or masses identified. There is skin thickening and s light increased echogenicity of the subcutaneous fat suggestive of a cellulitis. IMPRESSION: Above findings consistent with a cellulitis within the right thigh. No fluid collections to suggest an abscess. ACT 112: Negative or not required by law. Electronically signed by: Wesly Lance M.D. 10/10/2019 7:54 AM
[2019-10-10] MEDS: ASPIRIN 81 MG ECTAB PO SCH (08:13)
[2019-10-10] MEDS: AMLODIPINE BESYLATE 5 MG TAB PO SCH (08:13)
[2019-10-10] MEDS: carvediloL 25 MG TAB PO SCH ×2 (08:13→20:59)
[2019-10-10] MEDS: LOSARTAN POTASSIUM 50 MG TAB PO SCH ×2 (08:14→21:00)
[2019-10-10] MEDS: ENOXAPARIN INJ 40 MG/0.4 ML SYR SQ SCH (08:14)
[2019-10-10] MEDS: INSULIN ASPART 100 UNITS/ML 3 ML PEN SC SCH ×4 (08:16→21:01)
--- NOTE | 2019-10-10 08:48 | XRay Report ---
XR chest 1V portable HISTORY: SEPSIS COMPARISON: Chest 09/01/2018. FINDINGS: No pneumothorax or no pleural effusions. The heart remains enlarged. There is diffuse inter stitial and vascular thickening suggestive of pulmonary edema. An atypical interstitial pneumonitis c ould also have a similar appearance in the appropriate clinical setting. There is a cardiac valve pro sthesis and poststernotomy changes. IMPRESSION: 1. Interval progression of the pulmonary edema pattern. An interstitial pneumonitis could also have a similar appearance. ACT 112: Negative or not required by law. Electronically signed by: Wesly Lance M.D. 10/10/2019 7:48 AM
--- NOTE | 2019-10-10 08:54 | Electrocardiogram Report ---
Test Reason : Blood Pressure : / mmHG Vent. Rate : 055 BPM Atrial Rate : 055 BPM P-R Int : 148 ms QRS Dur : 088 ms QT Int : 446 ms P-R-T Axes : 053 045 041 degrees QTc Int : 426 ms Sinus bradycardia Otherwise normal ECG When compared with ECG of 03-SEP-2018 16:39, No significant change was found Confirmed by Octavio Hensley ([id number]) on 10/10/2019 8:53:51 AM Referred By: REFERRED SELF Confirmed By:Octavio Hensley
[2019-10-10] MEDS ORDERED: PIPERACILLIN/TAZOBACTAM 4.5 GM in DEXTROSE 5% 100 ML IV SCH (10:00)
[2019-10-10] MEDS: ALBUT/IPRATROP 3MG/0.5MG NEB 3 ML VIAL NEB PRN ×3 (10:35→19:24)
--- NOTE | 2019-10-10 11:18 | CT Scan Report ---
CT chest wo con CT DOSE: 673.35 mGycm HISTORY: Shortness of breath; bacteremia, septic emboli? TECHNIQUE: Multiaxial CT images of the chest were performed without contrast. A dose lowering techni que was utilized adhering to the principles of ALARA. COMPARISON: Chest CT 08/19/2012. FINDINGS: No pneumothorax. Trace bilateral pleural effusions. The central airways are patent. Diffuse interlobular septal thickening likely representing pulmonary edema. There are few faint scattered gr oundglass densities which may also represent a component of the pulmonary edema. Bibasilar linear den sities favor subsegmental atelectasis. There are poststernotomy changes. No suspicious lytic or blast ic osseous lesions. A few small thyroid nodules are noted. Subcentimeter mediastinal and bilateral hi lar lymph nodes do not meet CT criteria for pathologic involvement. The heart is mildly enlarged. Aor tic and mitral valve calcifications. The main pulmonary artery is dilated to 3.4 cm consistent with p ulmonary arterial hypertension. Moderate calcified plaque within the normal caliber thoracic aorta. L imited views of the upper abdomen demonstrate normal adrenal glands. Calcification within the liver. The spleen appears surgically absent. Small amount of soft tissue within the left upper quadrant like ly represents residual spleen. Normal caliber esophagus. Small nodular density at the right lung base may be secondary to the atelectasis or congestive change. Dominant nodule within the base of the rig ht lower lobe measures 8 mm. IMPRESSION: 1. Cardiomegaly, trace bilateral pleural effusions, and moderate pulmonary edema. 2. Mild pulmonary arterial hypertension. 3. Prior splenectomy. 4. Right basilar nodular densities may represent dependent change or a component of the pulmonary brayden ma. ACT 112: Negative or not required by law. Electronically signed by: Wesly Lance M.D. 10/10/2019 11:17 AM
--- NOTE | 2019-10-10 12:29 | Hospitalist Progress Note ---
Date of Service October 10, 2019 Assessment & Plan (1) Acute on chronic diastolic (congestive) heart failure: BNP elevated to 2000 with symptoms and evidence on CXR & CT chest of pulmonary edema. Shortness of breath seems like a long-standing issue for her judging by cardiology notes. - Will give Lasix 40 mg IV daily - Cardiology consult - I&Os, daily weights (2) Bacteremia: Blood cultures from 10/09/2019 were positive for Gram(+) cocci in 4/4 bruno kamara. Cellulitis is most likely source of infection. She is asplenic and has bioprosthetic aortic valve, sternotomy wires, and a prosthetic right hip as well. - Repeat blood cultures sent on 10/09 - Continue daptomycin - Check echo - pending - Given bioprosthetic valve, will consult cardiology. Feel that CHRIS may be needed here. (3) Cellulitis of right leg: As above, patient with cellulitis of RLE, patient with asplenia. - Continue dapto - Monitor area -> Presently improving. (4) DM (diabetes mellitus), type 2: Fairly well controlled. Last HgbA1C = 7.1% on 10/01/2019. Blood sugar well controlled today. - Hold Metformin for now - ISS, goal blood sugar 100 - 140; at goal presently. (5) Essential (primary) hypertension: Chronic. Stable. - Continue carvedilol 25mg po BID - Continue amlodipine 5mg po daily - Continue losartan 50mg po BID - Continue to monitor (6) S/P AVR (aortic valve replacement): Noted. - Check Echo to evaluate valve (7) Asplenia: Patient reports being UTD on her immunizations. Immunocompromised host, at increased risk for sepsis and infection from encapsulated organisms. - Follow cultures as above - Antibiotics as above (8) Hyperlipidemia: Chronic. Stable. - Continue Simvastatin (9) DVT prophylaxis: Admission and Anticipated Discharge Date Admission Date: October 10, 2019 Subjective Doing well today, though she feels she is wheezing. Reports no fevers/chills, chest pain, abdominal pain, nausea, or vomiting. Physical Exam Constitutional: WD/WN, vitals as above Eyes: EOM intact bilaterally; no conjunctival abnormality ENMT: external ear and nose normal, oropharynx normal Neck: trachea midline, no thyromegaly normal visual inspection Respiratory: normal respiratory effort, lungs clear to auscultation + labored breathing Auscultation: + wheezes Cardiovascular: RRR, no murmur, no edema Gastrointestinal (Abdomen): Inspection/Auscultation: abdomen normal to inspection; abdomen not distended Musculoskeletal: no cyanosis or clubbing, extremities motor strength 5/5 Skin: no rashes, warm and dry Neurologic: moves all extremities and awake Psychiatric: Orientation: alert, oriented to person and cooperative Results & Data Results & Data ([facility]) Vital Signs (Past 12 Hours) Vital Signs Temp Pulse Pulse Pulse Resp BP BP 10/10/19 11:25 37.2 C 65 18 10/10/19 10:33 67 18 10/10/19 08:09 36.9 C 61 18 10/10/19 06:21 37 C 62 24 170/78 H 10/10/19 05:44 20 10/10/19 05:17 56 L 24 157/72 H 10/10/19 05:00 20 10/10/19 04:47 60 24 191/87 H 10/10/19 04:46 60 21 10/10/19 04:30 20 10/10/19 04:10 58 L 23 195/71 H 10/10/19 04:08 58 L 24 10/10/19 04:07 37.3 C 56 L 22 195/71 H 10/10/19 04:00 18 BP Pulse Ox 10/10/19 11:25 166/61 H 91 10/10/19 10:33 91 10/10/19 08:09 176/72 H 92 10/10/19 06:21 90 10/10/19 05:44 92 10/10/19 05:17 92 10/10/19 05:00 92 10/10/19 04:47 92 10/10/19 04:46 93 10/10/19 04:30 92 10/10/19 04:10 94 10/10/19 04:08 93 10/10/19 04:07 95 10/10/19 04:00 93 PG Care Time/CCT Total # of Minutes Spent Total Time Spent with Patient: Total time spent is greater than 50% in coordination of care (as documented) at patient's floor/unit and/or counseling patient: Coding Level of Care Code 74640 Subseq Hosp Care Lvl 3 Diagnoses Acute on chronic diastolic (congestive) heart failure I50.33 Bacteremia R78.81 Cellulitis of right leg L03.115 DM (diabetes mellitus), type 2 E11.9 Diabetes mellitus ad 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 insulin use: without ad 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 use Diabetes mellitus complication status: without complication Essential (primary) hypertension I10 S/P AVR (aortic valve replacement) Z95.2 Asplenia Q89.01 Hyperlipidemia E78.2 Hyperlipidemia type: mixed hyperlipidemia DVT prophylaxis Z29.9 (1) DM (diabetes mellitus), type 2 Diabetes mellitus prison insulin use: without ad 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 use Diabetes mellitus complication status: without complication Qualified Code(s): E11.9 - Type 2 diabetes mellitus without complications (2) Hyperlipidemia Hyperlipidemia type: mixed hyperlipidemia Qualified Code(s): E78.2 - Mixed hyperlipidemia
--- NOTE | 2019-10-10 15:14 | Cardiology Consultation ---
Date of Consultation October 10, 2019 Assessment & Plan (1) Bacteremia: (2) Acute on chronic diastolic (congestive) heart failure: (3) S/P AVR (aortic valve replacement): Given her history of aortic valve replacement there is obviously concern for endocarditis with her bacteremia. Unfortunately, transthoracic study was unrevealing. So at this time I believe the most prudent course of action would be to proceed with a transesophageal echocardiogram. This will also give us the benefit of evaluating her in valve stenosis as well. She remains volume overloaded so we will give her Lasix now and again this evening with a urinary catheter to be placed for her comfort. Electrolytes to be followed closely and repleted as necessary. The procedure along with the risks, benefits and alternatives were discussed with her at great lengths. She states that she understands and is agreement to proceed with CHRIS in the a.m. N.p.o. after midnight. History of Present Illness Attending Physician: Yoseph Blankenship MD History of Present Illness Mrs. Castle is a 79-year-old woman who normally follows with Ramo Judd of our cardiology practice. She was directed to [facility] after outpatient blood cultures came back positive when she was treated for cellulitis. She states that she has been more short of breath than normal lately but denies any chest pain, palpitations, lightheadedness, dizziness or syncope. Upon arrival she was found to be volume overloaded and diuretics were ordered, however, she deferred Lasix full dose because she did not want to be up all night urinating. Her shortness of breath is not significantly changed since admission. Past Medical and Surgical History: 1. Calcific aortic valve disease, severe aortic stenosis s/p aortic valve replacement on 11/07/11 receiving a 21 mm Glenny-Aviles pericardial valve. 2. Pulmonary hypertension 3. Enlarged proximal ascending aorta 4. No obstructive coronary disease. Cardiac catheterization last performed on 08/23/2018 revealed no evidence of obstructive CAD (see below). Hemodynamic assessment of the bioprosthetic AVR via catheterization revealed no significant gradient. Discomfort felt to possibly be related to elevated end- diastolic pressure in the setting of uncontrolled blood pressure. 5. Diastolic heart failure 6. Moderate bilateral internal carotid artery disease 7. Type II diabetes mellitus 8. Hypertension 9. Dyslipidemia 10. GERD. 11. Fatty liver 12. Depression 13. Osteoporosis 14. Umbilical hernia surgery, age 7. 15. Tubal ligation 16. Appendectomy 17. Right hip replacement 18. 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 Allergies Allergy/AdvReac Type Severity Reaction Status Date / Time bee venom protein (honey bee) Allergy Intermediate . Verified 10/10/19 04:08 Home Medications Home Medications Medication Instructions Recorded Confirmed Type aspirin 81 mg PO DAILY 09/01/18 10/10/19 History cholecalciferol (vitamin D3) 5,000 unit PO DAILY 09/01/18 10/10/19 History [Vitamin D3] potassium chloride 10 meq PO DAILY 09/01/18 10/10/19 History amlodipine [Norvasc] 5 mg PO QAM #30 tab 09/04/18 10/10/19 Rx losartan 50 mg PO BID #30 tab 09/04/18 10/10/19 Rx simvastatin 20 mg PO HS #30 tab 09/04/18 10/10/19 Rx furosemide 20 mg tablet 20 mg PO DAILY PRN 12/12/18 10/10/19 History carvedilol 25 mg tablet 25 mg PO AMPM tab 05/22/19 10/10/19 History cephalexin [Keflex] 500 mg PO QID 10 Days #40 cap 10/09/19 10/10/19 Rx metformin 1,000 mg PO BIDM 10/09/19 10/10/19 History sulfamethoxazole-trimethoprim 1 tab PO BID #20 tab 10/09/19 10/10/19 Rx [Bactrim DS] Patient History Medical History Abdominal distension Arthritis Asplenia CAD (coronary artery disease) Carotid stenosis Chronic dyspnea Diverticulosis of colon DM (diabetes mellitus), type 2 Eczema Essential (primary) hypertension Hyperlipidemia Irritable bowel syndrome Morbid obesity with BMI of 40.0-44.9, adult Nonalcoholic fatty liver disease Nontoxic multinodular goiter Seborrheic keratosis Urinary incontinence Surgical History 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 - [facility] (cyst) History of appendectomy History of right hip replacement late History of tubal ligation S/P AVR (aortic valve replacement) S/P splenectomy Family History Father , about age 70 Melanoma Mother , age 80 Intracerebral hemorrhage Denies family history of Ovarian cancer Prostate cancer Myocardial infarction Breast cancer Colorectal cancer Social History Smoking Status: Former smoker Age Quit Using Tobacco: 58; packs per day: 1; Second Hand Exposure: No; Hx Alcohol Use: Yes Alcohol type: wine Hx Substance Use: No Preferred Language: [place] Verdean Communication Ability: Effective Payment Analyst Required: No Beliefs That Will Affect Care: None marital status: marital status details: live in [place]; 3 sons Current Living Situation: Spouse current occupational status: retired other: ran a [employer] near [place], [place] Feels Safe at Home: Yes caffeine: Yes Dental Care, Regularly: No Physical Activity Frequency: Does not Exercise Seatbelt Use: always Sunscreen Use: Yes Review of Systems Review of Systems: All systems reviewed & are unremarkable except as noted in HPI & below Results & Data ([facility]) Vital Signs (Past 12 Hours) Vital Signs Temp Pulse Pulse Pulse Resp BP BP 10/10/19 14:52 64 18 10/10/19 14:48 37.6 C H 68 16 156/89 H 10/10/19 11:25 37.2 C 65 18 10/10/19 10:33 67 18 10/10/19 08:09 36.9 C 61 18 10/10/19 06:21 37 C 62 24 170/78 H 10/10/19 05:44 20 10/10/19 05:17 56 L 24 157/72 H 10/10/19 05:00 20 10/10/19 04:47 60 24 191/87 H 10/10/19 04:46 60 21 10/10/19 04:30 20 10/10/19 04:10 58 L 23 195/71 H 10/10/19 04:08 58 L 24 10/10/19 04:07 37.3 C 56 L 22 195/71 H 10/10/19 04:00 18 BP Pulse Ox 10/10/19 14:52 92 10/10/19 14:48 89 L 10/10/19 11:25 166/61 H 91 10/10/19 10:33 91 10/10/19 08:09 176/72 H 92 10/10/19 06:21 90 10/10/19 05:44 92 08/27/20 05:17 92 10/10/19 05:00 92 10/10/19 04:47 92 10/10/19 04:46 93 10/10/19 04:30 92 10/10/19 04:10 94 10/10/19 04:08 93 10/10/19 04:07 95 10/10/19 04:00 93
[2019-10-10] MEDS ORDERED: FUROSEMIDE 40 MG in SYRINGE 0 ML IV ONE (16:15)
[2019-10-10] MEDS ORDERED: POTASSIUM CHLORIDE 20 MEQ TABCR PO ONE (16:15)
[2019-10-10] MEDS: FUROSEMIDE 40 MG in SYRINGE 0 ML IV SCH (20:59)
[2019-10-10] MEDS: SIMVASTATIN 20 MG TAB PO SCH (21:00)
[2019-10-10] MEDS: MAGNESIUM OXIDE 400 MG TAB PO SCH (21:01)
[2019-10-11] MEDS ORDERED: DAPTOmycin 500 MG in SYRINGE 0 ML IV SCH (07:00)
[2019-10-11] MEDS: FUROSEMIDE 40 MG in SYRINGE 0 ML IV SCH ×2 (08:08→17:57)
[2019-10-11] MEDS ORDERED: fentaNYL citrate 100 MCG/2 ML VIAL ONE (08:18)
[2019-10-11] MEDS ORDERED: MIDAZOLAM HCL 1 MG/ML 2ML VIAL ONE (08:19)
--- NOTE | 2019-10-11 08:47 | Pre Anesthesia Assessment ---
Date of Service October 11, 2019 Pre Sedation Assessment Vital Signs Temp Pulse Pulse Resp BP BP Pulse Ox 10/11/19 08:32 53 L 20 175/103 H 96 10/11/19 07:24 36.6 C 54 L 18 146/65 H 91 10/11/19 05:59 52 L 10/11/19 03:17 36.6 C 47 L 18 135/57 L 90 10/10/19 23:32 37.3 C 60 20 117/65 91 10/10/19 19:48 36.5 C 68 18 155/63 H 92 10/10/19 19:24 77 18 98 10/10/19 16:01 62 10/10/19 14:52 64 18 92 10/10/19 14:48 37.6 C H 68 16 156/89 H 89 L 10/10/19 11:25 37.2 C 65 18 166/61 H 91 10/10/19 10:33 67 18 91 Pre-Sedation Airway Assessment Smoking Status: Former smoker Short, Thick Neck: No Thyromental Distance: > or= 3.5 Finger Breadths Oral Cavity: + WNL Mallampati Class: II ASA: ASA2 NPO Status Date of Last Intake of Fluids: 10/10/19 Time of Last Intake of Fluids: 22:00 Date of Last Intake of Solid Food: 10/10/19 Time of Last Intake of Solid Foods: 18:00 Notes The planned sedation has been discussed with the patient. Informed Consent was obtained. I have identified the patient, determined the appropriateness of sedation and have assessed the patient immediately prior to the procedure. All medicine(s) and interventions are by my order.
--- NOTE | 2019-10-11 08:47 | History & Physical Bridge Note ---
Date of Service October 11, 2019 History & Physical Bridge Note I have examined the patient, reviewed the History & Physical and in the interval since the performance of the History & Physical I have noted the following changes of clinical significance: no changes noted
[2019-10-11] MEDS ORDERED: FUROSEMIDE 40 MG in SYRINGE 0 ML IV SCH (09:00)
--- NOTE | 2019-10-11 09:12 | Post Anesthesia Assessment ---
Date of Service October 11, 2019 Post Sedation Assessment Vital Signs Temp Pulse Pulse Resp BP BP Pulse Ox 10/11/19 09:08 49 L 16 159/55 H 94 10/11/19 09:05 55 L 16 150/54 H 93 10/11/19 09:00 50 L 18 184/63 H 91 10/11/19 08:55 55 L 18 163/51 H 97 10/11/19 08:32 53 L 20 175/103 H 96 10/11/19 07:24 36.6 C 54 L 18 146/65 H 91 10/11/19 05:59 52 L 10/11/19 03:17 36.6 C 47 L 18 135/57 L 90 10/10/19 23:32 37.3 C 60 20 117/65 91 10/10/19 19:48 36.5 C 68 18 155/63 H 92 10/10/19 19:24 77 18 98 10/10/19 16:01 62 10/10/19 14:52 64 18 92 10/10/19 14:48 37.6 C H 68 16 156/89 H 89 L 10/10/19 11:25 37.2 C 65 18 166/61 H 91 10/10/19 10:33 67 18 91 Recovery Score Activity: Moves 4 extremities Respiration: Deep Breath/Cough Circulation: +/-20% PreAnes Value Consciousness: Fully Awake Oxygen Saturation: > 92% On Room Air Post Anesthesia Score: 10 Discharge Sedation Level of Care: Fast Track Phase II Post Sedation Plan On clinical assessment, the patient appears to have tolerated the sedation without complications. Patient is recovering as anticipated. Patient will continue to be monitored by nursing and may be discharged when sedation discharge criteria are met per below protocol. Upon Completions of procedure up to 15 minutes continue every 5 minute vital signs and the P.A.R. score; then discharge to a Phase I or Fast Track to Phase II per the following guidelines: * Discharge Patient to appropriate Phase II area if PAR is 8 or greater or return to pre- procedure baseline. The post - procedure orders will be as directed. * If PAR score is less than 8 or not return to pre-procedure baseline then patient will follow Phase I monitoring till PAR is reached for Phase II. The Phase I may be done in procedure room or may call to secure a Phase I area. * If naloxone or flumazenil are used for reversal, hold in Phase I for contin ued monitoring from when last reversal dose was given for a minimum of 60 minutes or longer pending the nurse and/or physician discretion of patient condition before discharge to Phase II. Please call the Sedation Physician to re-evaluate and complete post-note for discharge to Phase II area. Do NOT discharge from procedure sedation or Phase 1 until post- sedation evaluation note is complete by procedure /sedation MD Sedation Discharge Instructions to be given to the patient at discharge to home.
[2019-10-11] MEDS ORDERED: ENALAPRILAT 2.5 MG in DEXTROSE 5% 25 ML IV ONE (09:15)
--- NOTE | 2019-10-11 09:54 | Operative Report ---
Post Operative Report Pre & Post Diagnosis Operation Date: 10/11/19 09:00 <No data on this case meets the specified criteria> I identified the patient and participated in the time-out.: Yes Procedure Operation Date: 10/11/19 09:00 Actual Procedures p Echo Transesophageal - Peyman Shannon DO Surgeon Peyman Shannon DO Associate Director Regulatory Affairs Elvia AZUL Estimated Blood Loss 0 Findings Consistent with Post-Op Diagnosis Specimens none Description of Procedure Informed consent obtained. Adequate moderate sedation achieved with a total of 3 mg of Versed and 75 mcg of fentanyl. No valvular lesions consistent with endocarditis are present. Patient tolerated procedure well. To be recovered per protocol and return to telemetry. Start time: 900 Stop time 907 I attest to the content of the Intraoperative Record and any orders documented therein. Any exceptions are noted below.
[2019-10-11] MEDS: carvediloL 25 MG TAB PO SCH ×2 (10:10→21:49)
[2019-10-11] MEDS: MAGNESIUM OXIDE 400 MG TAB PO SCH ×2 (10:28→21:49)
[2019-10-11] MEDS: PENICILLIN G POTASSIUM 4 MU in DEXTROSE 5% 100 ML IV SCH ×2 (10:28→13:05)
[2019-10-11] MEDS: POTASSIUM CHLORIDE 20 MEQ TABCR PO SCH (10:29)
[2019-10-11] MEDS: AMLODIPINE BESYLATE 5 MG TAB PO SCH (10:29)
[2019-10-11] MEDS: LOSARTAN POTASSIUM 50 MG TAB PO SCH ×2 (10:30→21:50)
[2019-10-11] MEDS: ENOXAPARIN INJ 40 MG/0.4 ML SYR SQ SCH (10:31)
[2019-10-11] MEDS: ASPIRIN 81 MG ECTAB PO SCH (10:31)
[2019-10-11 10:34] LABS: Basophils # (auto) 0.07 K/uL (0-0.2); Eosinophils # (auto) 0.15 K/uL (0-0.5); Eosinophils % (auto) 2.2 %; Hematocrit (blood only) 37.2 % (37-47); Hemoglobin 12.2 g/dL (12.0-16.0); Immature Granulocytes # (auto) 0.02 K/uL (0.00-0.02); Immature Granulocytes % (auto) 0.3 %; Lymphocytes # (auto) 1.76 K/uL (1.2-3.4); Lymphocytes % (auto) 25.4 %; Mean Corpuscular Hemoglobin 29.3 pg (25-34); Mean Corpuscular Hgb Conc 32.8 g/dL (32-36); Mean Corpuscular Volume 89.4 fL (80-100); Mean Platelet Volume 12.3 fL (7.4-10.4); Monocytes # (auto) 0.72 K/uL (0.11-0.59); Monocytes % (auto) 10.4 %; Neutrophils % (auto) 60.7 %; Platelet Count 217 K/uL (130-400); RDW Coefficient of Variation 14.8 % (11.5-14.5); RDW Standard Deviation 48.4 fL (36.4-46.3); Red Blood Count 4.16 M/uL (4.2-5.4); White Blood Count 6.92 K/uL (4.8-10.8)
[2019-10-11 11:18] LABS: BUN Creatinine Ratio 16.6 (10-20); Calcium 9.2 mg/dl (8.5-10.1); Creatinine Clr Calc Pharmacy 86.6 ml/min; Est GFR (African American) 93.6; Est GFR (Non-African American) 80.8; Potassium 3.6 mmol/L (3.5-5.1)
--- NOTE | 2019-10-11 11:36 | Hospitalist Progress Note ---
Date of Service October 11, 2019 Assessment & Plan (1) Bacteremia: Blood cultures from 10/09/2019 were positive for Group B Beta Strep in 4/4 bottles. Cellulitis is most likely source of infection. She is asplenic and has bioprosthetic aortic valve, sternotomy wires, and a prosthetic right hip as well. - Repeat blood cultures sent on 10/09 - No growth so far. - Continue daptomycin - Added penicillin G when Group B Strep returned. - CHRIS on 10/[address] Shannon was negative for endocarditis. - Discussing with Jamal AGUILERA today; will likely need 2 weeks of abx, but may consider longer given asplenia. (2) Acute on chronic diastolic (congestive) heart failure: BNP elevated to 2000 with symptoms and evidence on CXR & CT chest of pulmonary edema. Shortness of breath seems like a long-standing issue for her judging by cardiology notes. - Lasix 40 mg IV BID per cardiology - Cardiology consult - I&Os, daily weights -> Much improved today. Continue for now. Cr stable. (3) Cellulitis of right leg: As above, patient with cellulitis of RLE, patient with asplenia. - Continue dapto - Monitor area -> Presently improving. (4) DM (diabetes mellitus), type 2: Fairly well controlled. Last HgbA1C = 7.1% on 10/01/2019. Blood sugar well controlled today. - Hold Metformin for now - ISS, goal blood sugar 100 - 140; at goal presently. (5) Essential (primary) hypertension: Chronic. Stable. BP is 155/60 today. - Continue carvedilol 25mg po BID - Continue amlodipine 5mg po daily - Continue losartan 50mg po BID - Continue to monitor (6) S/P AVR (aortic valve replacement): Noted. - CHRIS as above (7) Asplenia: Patient reports being UTD on her immunizations. Immunocompromised host, at increased risk for sepsis and infection from encapsulated organisms. - Follow cultures as above - Antibiotics as above (8) Hyperlipidemia: Chronic. Stable. - Continue simvastatin (9) DVT prophylaxis: Lovenox 40 mg SQ daily Admission and Anticipated Discharge Date Admission Date: October 10, 2019 Subjective Doing very well today. Breathing much improved. Overall, redness also improving. Reports no fevers/chills, chest pain, shortness of breath, abdominal pain, nausea, or vomiting. Physical Exam Constitutional: WD/WN, vitals as above Eyes: EOM intact bilaterally; no conjunctival abnormality ENMT: external ear and nose normal, oropharynx normal Neck: trachea midline, no thyromegaly normal visual inspection Respiratory: normal respiratory effort, lungs clear to auscultation no labored breathing Auscultation: no wheezes Cardiovascular: RRR, no murmur, no edema Gastrointestinal (Abdomen): Inspection/Auscultation: abdomen normal to inspection; abdomen not distended Musculoskeletal: no cyanosis or clubbing, extremities motor strength 5/5 Skin: + erythema (Improving) Neurologic: moves all extremities and awake Psychiatric: Orientation: alert, oriented to person and cooperative Results & Data Results & Data ([facility]) Vital Signs (Past 12 Hours) Vital Signs Temp Pulse Pulse Resp BP BP Pulse Ox 10/11/19 11:20 36.5 C 54 L 18 156/58 H 95 10/11/19 09:30 58 L 18 151/45 H 95 10/11/19 09:15 48 L 18 143/48 H 94 10/11/19 09:13 49 L 16 193/66 H 94 10/11/19 09:08 49 L 16 159/55 H 94 10/11/19 09:05 55 L 16 150/54 H 93 10/11/19 09:00 50 L 18 184/63 H 91 10/11/19 08:55 55 L 18 163/51 H 97 10/11/19 08:32 53 L 20 175/103 H 96 10/11/19 07:24 36.6 C 54 L 18 146/65 H 91 10/11/19 05:59 52 L 10/11/19 03:17 36.6 C 47 L 18 135/57 L 90 10/10/19 23:32 37.3 C 60 20 117/65 91 PG Care Time/CCT Total # of Minutes Spent Total Time Spent with Patient: Total time spent is greater than 50% in coordination of care (as documented) at patient's floor/unit and/or counseling patient: Coding Level of Care Code 69761 Subseq Hosp Care Lvl 3 Diagnoses Bacteremia R78.81 Acute on chronic diastolic (congestive) heart failure I50.33 Cellulitis of right leg L03.115 DM (diabetes mellitus), type 2 E11.9 Diabetes mellitus long term care phlebotomist insulin use: without long term care phlebotomist use Diabetes mellitus complication status: without complication Essential (primary) hypertension I10 S/P AVR (aortic valve replacement) Z95.2 Asplenia Q89.01 Hyperlipidemia E78.2 Hyperlipidemia type: mixed hyperlipidemia DVT prophylaxis Z29.9 (1) DM (diabetes mellitus), type 2 Diabetes mellitus fdc insulin use: without fdc use Diabetes mellitus complication status: without complication Qualified Code(s): E11.9 - Type 2 diabetes mellitus without complications (2) Hyperlipidemia Hyperlipidemia type: mixed hyperlipidemia Qualified Code(s): E78.2 - Mixed hyperlipidemia
[2019-10-11] MEDS: INSULIN ASPART 100 UNITS/ML 3 ML PEN SC SCH ×4 (11:40→22:03)
--- NOTE | 2019-10-11 12:58 | Cardiology Progress Note ---
Date of Service October 11, 2019 Assessment & Plan (1) Bacteremia: (2) Acute on chronic diastolic (congestive) heart failure: (3) S/P AVR (aortic valve replacement): Tolerated CHRIS well. No sign of valvular vegetation to suggest endocarditis. Bioprosthetic aortic valve opening well and does not appear to be as significant on transthoracic study. No medication changes from a cardiac standpoint. Okay to DC to home from a cardiac standpoint. Follow-up as an outpatient as scheduled. Admission and Anticipated Discharge Date Admission Date: October 10, 2019 Subjective Patient seen and examined, states that she is feeling well. Chart reviewed. Denies any complaints of chest pain, shortness of breath, palpitations, lightheadedness, dizziness or syncope. Tolerated CHRIS well. Review of Systems Review of Systems: All systems reviewed & are unremarkable except as noted in HPI & below Physical Exam Physical Exam: General: Awake, alert and oriented x 3. No acute distress. HEENT: Normocephalic, atraumatic. Pupils equal, round and reactive to light and accommodation. Extraocular muscles are intact. Anicteric sclera. Moist mucous membranes. Neck: No JVD. No bruit. Cardiovascular: Regular. Positive S-4. Normal S-1 and S-2. No S-3. 3/6 mid to late systolic ejection murmur, greatest at the right sternal border, second intercostal space with radiation to the bilateral carotids. No rubs. Pulmonary: Clear to auscultation bilaterally. No rales, rhonchi, or wheezing. Abdomen: Bowel sounds x 4, soft. No rebound, guarding or tenderness. No organomegaly. Extremities: No clubbing, cyanosis or edema. +2 pedal pulses bilaterally. Skin: Warm and dry. Results & Data ([facility]) Vital Signs (Past 12 Hours) Vital Signs Temp Pulse Pulse Resp BP BP Pulse Ox 10/11/19 11:20 36.5 C 54 L 18 156/58 H 95 10/11/19 09:30 58 L 18 151/45 H 95 10/11/19 09:15 48 L 18 143/48 H 94 10/11/19 09:13 49 L 16 193/66 H 94 10/11/19 09:08 49 L 16 159/55 H 94 10/11/19 09:05 55 L 16 150/54 H 93 10/11/19 09:00 50 L 18 184/63 H 91 10/11/19 08:55 55 L 18 163/51 H 97 10/11/19 08:32 53 L 20 175/103 H 96 10/11/19 07:24 36.6 C 54 L 18 146/65 H 91 10/11/19 05:59 52 L 10/11/19 03:17 36.6 C 47 L 18 135/57 L 90
[2019-10-11] MEDS ORDERED: cefTRIAXone SODIUM 2,000 MG in DEXTROSE 5% 50 ML IV ONE (14:30)
--- NOTE | 2019-10-11 18:44 | XRay Report ---
XR hip RT 2V w pelvis CLINICAL HISTORY: Cellulitis over right hip; bacteremia; joint effusion COMPARISON: 09/02/2018 DISCUSSION: There are postsurgical changes of a total right hip arthroplasty. No fractures or disloca tions are visualized. No destructive lesions are evident. There is an area of heterotopic ossificatio n adjacent the greater trochanter. Degenerative changes are present within the lumbar spine . There i s no visible soft tissue gas. IMPRESSION: Total right hip arthroplasty. No conventional radiographic evidence of hardware failure. No visible soft tissue gas. ACT 112: Negative or not required by law. Electronically signed by: Ravindra Cummins M.D. 10/11/2019 6:42 PM
[2019-10-11] MEDS: SIMVASTATIN 20 MG TAB PO SCH (21:49)
[2019-10-12 06:12] LABS: Hematocrit (blood only) 35.9 % (37-47); Hemoglobin 11.7 g/dL (12.0-16.0); Mean Corpuscular Hemoglobin 28.6 pg (25-34); Mean Corpuscular Hgb Conc 32.6 g/dL (32-36); Mean Corpuscular Volume 87.8 fL (80-100); Mean Platelet Volume 11.7 fL (7.4-10.4); Platelet Count 222 K/uL (130-400); RDW Coefficient of Variation 14.4 % (11.5-14.5); RDW Standard Deviation 46.6 fL (36.4-46.3); Red Blood Count 4.09 M/uL (4.2-5.4); White Blood Count 7.51 K/uL (4.8-10.8)
[2019-10-12 06:39] LABS: BUN Creatinine Ratio 20.3 (10-20); Calcium 9.2 mg/dl (8.5-10.1); Est GFR (Non-African American) 73.3; Magnesium 2.1 mg/dl (1.8-2.4); Potassium 3.5 mmol/L (3.5-5.1)
[2019-10-12] MEDS: MAGNESIUM OXIDE 400 MG TAB PO SCH (08:31)
[2019-10-12] MEDS: LOSARTAN POTASSIUM 50 MG TAB PO SCH (08:31)
[2019-10-12] MEDS: carvediloL 25 MG TAB PO SCH (08:32)
[2019-10-12] MEDS: AMLODIPINE BESYLATE 5 MG TAB PO SCH (08:32)
[2019-10-12] MEDS: FUROSEMIDE 40 MG in SYRINGE 0 ML IV SCH (08:32)
[2019-10-12] MEDS: ASPIRIN 81 MG ECTAB PO SCH (08:32)
[2019-10-12] MEDS: POTASSIUM CHLORIDE 20 MEQ TABCR PO SCH (08:32)
[2019-10-12] MEDS: ENOXAPARIN INJ 40 MG/0.4 ML SYR SQ SCH (08:33)
[2019-10-12] MEDS: INSULIN ASPART 100 UNITS/ML 3 ML PEN SC SCH ×2 (08:35→12:11)
[2019-10-12] MEDS ORDERED: cefTRIAXone SODIUM 2,000 MG in DEXTROSE 5% 50 ML IV SCH (11:00)
--- NOTE | 2019-10-12 16:30 | Discharge Summary ---
Date of Service October 12, 2019 Admission HPI Per Admitting Provider Paola Castle is a 79yo C female with history of asplenia, bioprosthetic AVR, DM, CAD, HTN, HLP presenting with bacteremia. Patient was seen in the ER yesterday, 09 Oct 2019 with complaint of fever to 101/shaking chills/RLE cellulitis x 2 days. She had blood cultures drawn and was treated with IV Ceftriaxone and discharged home on Bactrim and Keflex. Patient was called this morning because her blood cultures grew gram positive cocci in 2/2 anaerobic bottles. Patient reports that the redness has increased despite taking the oral antibiotics. Also with some tenderness. No additional complaints at this time. Patient reports progressive dyspnea over the last few months as well as cough. No concerns for coronavirus exposure. ER Course: Zosyn, Daptomycin, Lasix Principal Diagnosis Group B Strep bacteremia from cellulitis Discharge Exam Constitutional WD/WN, vitals as above Eyes EOM intact bilaterally; no conjunctival abnormality ENMT external ear and nose normal, oropharynx normal Neck trachea midline, no thyromegaly normal visual inspection Respiratory normal respiratory effort, lungs clear to auscultation no labored breathing Auscultation: no wheezes Cardiovascular RRR, no murmur, no edema Gastrointestinal (Abdomen) Inspection/Auscultation: abdomen normal to inspection; abdomen not distended Musculoskeletal no cyanosis or clubbing, extremities motor strength 5/5 Skin no rashes, warm and dry + erythema (Improving) Neurologic moves all extremities and awake Psychiatric Orientation: alert, oriented to person and cooperative Discharge Data Allergies Allergy/AdvReac Type Severity Reaction Status Date / Time bee venom protein (honey bee) Allergy Intermediate . Verified 10/10/19 04:08 Consultations 10/10/19 03:34 ED Decision to Admit Stat 10/10/19 12:49 Consult Cardiology Routine Procedures Performed Operation Date: 10/11/19 09:00 Actual Procedures p Echo Transesophageal - Peyman Shannon DO s Echo Color Flow - Peyman Shannon DO Ordered Studies 10/10/19 03:24 US soft tissue ext ltd Urgent 10/10/19 09:52 CT chest wo con Routine Hospital Course (1) Bacteremia: Blood cultures from 10/09/2019 were positive for Group B Beta Strep in 4/4 bottles. Cellulitis is most likely source of infection. She is asplenic and has bioprosthetic aortic valve, sternotomy wires, and a prosthetic right hip as well. - CHRIS on 10/[address] Shannon was negative for endocarditis. CT chest was negative for septic emobli, and right hip clinical exam and x-ray showed no indication of joint infection. - Repeat blood cultures sent on 10/09 - No growth so far after 48 hours. - Discharged home on 3 weeks of ceftriaxone. Jamal ID agreed that 2 weeks might be appropriate given the uncomplicated nature of her bacteremia; however, given her asplenia, I thought a slightly longer course would be better. In theory, if she was truly thought to be "immunocompromised," she would need 4 weeks, but ID and I agreed she didn't quite meet that standard, so a full 4-week course was not needed. Her abx could always be extended by an extra week if PCP has concerns about right hip area. (2) Acute on chronic diastolic (congestive) heart failure: BNP elevated to 2000 with symptoms and evidence on CXR & CT chest of pulmonary edema. Shortness of breath seems like a long-standing issue for her judging by cardiology notes. - Lasix 40 mg IV BID per cardiology - Much improved today. Cr was stable. Discharge weight was 259 lbs. She was encouraged to weigh herself daily and follow closely with cardiology. Increased Lasix to 40 mg PO daily. (3) Cellulitis of right leg: As above, patient with cellulitis of RLE, patient with asplenia. - Quickly improved and was essentially resolved by discharge. (4) DM (diabetes mellitus), type 2: Fairly well controlled. Last HgbA1C = 7.1% on 10/01/2019. Blood sugar well controlled today. - No change on discharge. (5) Essential (primary) hypertension: Chronic. Stable. BP is 155/60 today. - Continue carvedilol 25mg po BID - Continue amlodipine 5mg po daily - Continue losartan 50mg po BID - Continue to monitor (6) S/P AVR (aortic valve replacement): Noted. - CHRIS as above (7) Asplenia: Patient reports being UTD on her immunizations. Mildly immunocompromised host, at increased risk for sepsis and infection from encapsulated organisms. - Antibiotics as above (8) Hyperlipidemia: Chronic. Stable. - Continue simvastatin (9) DVT prophylaxis: Lovenox 40 mg SQ daily Total Time Total Time Spent Total Time Spent (In Minutes): 45 Discharge Plan Discharge Items Patient Disposition: Home - Home Health Services Reason For Visit: BACTREMIA Discharge Diagnosis: Skin infection and bacteremia Activity: Resume your previous activity Non-emergency contact: Primary Care Provider Call non-emergency contact if: your symptoms worsen and your temperature is above 101 Follow-up/Referrals: Charity Fowler MD [Primary Care Provider] - (Please see Dr. Fowler in 1-2 weeks to see how your right leg is doing and check on the antibiotics.) John Nunez MD [Physician] - (Please see Dr. Nunez or Ramo Judd in 1 week for a weight check and to see how you are feeling.) Diet: Carb Consistent or DM2 and Heart Healthy Addtl Attending Provider Instructions: Ms. Castle, You were asked to come back to the hospital after bacteria was found growing in your bloodstream. We think this was due to the cellulitis (skin infection) over your right hip. Fortunately, an ultrasound of your heart (called a CHRIS), a CT scan of your chest, and x-rays of your right hip did not show that the bacteria has been able to stick to or infect any other part of your body. This is super important and very good because if the bacteria gets into/onto your heart valve or hip replacement, it could require surgery which we obviously really want to avoid. The lack of spleen makes you a bit more vulnerable to this kind of bacteria, so this is probably why you ended up having the bacteria get into your bloodstream despite overall a fairly mild cellulitis. You have started an IV antibiotic in the hospital called ceftriaxone. You will need this every day for the next 3 weeks. Once a week, you will go to the [facility] (called [facility]) to have the dressing on your IV changed and to get labs drawn to be sure the antibiotic is not affecting your kidneys or bone marrow. The results will be sent to Dr. Fowler. The repeat blood cultures we keysha are still negative and will be watched for 5 days. If they were to turn positive (meaning bacteria were to start growing in them), we would need to discuss lengthening the time course of your antibiotics, but hopefully this will not happen. It is quite unlikely it will after 48 hours negative. Please stop the oral antibiotics. They only overlap with your IV ones and will not help you clear the infection more quickly. Also, you had fluid on your lungs (pulmonary edema) when you came to the hospital. Dr. Shannon (Ramo Judd's partner) started you on IV Lasix which helped you considerably. After removing the fluid from your lungs, you felt a lot better and were breathing more comfortably. I would like you to start taking Lasix 40 mg every day. On discharge, we have your weight as 258 pounds. Please go home and weigh yourself right away. Wear the same clothes you would normally wear during weighing. (For instance a dressing gown or nightgown, underwear, or whatever you would normally wear at night.) Put up a piece of paper on the wall and write your current weight on it. The goal is to stay at about this weight because this is a good "dry" weight for you. If you gain more than 2-3 lbs, please call Dr. Nunez's office right away. This could mean you are gaining water weight again which can end up in your legs and lungs. It would be important to see them to make sure you are not going into heart failure. Please contact Dr. Fowler's office to be seen in the next 1-2 weeks to be sure everything is going well. If you start having fevers at home, if the red area on the hip comes back or gets worse, if you have shortness of breath, chest pain, sweats, hip pain, or other concerning symptoms, please call Dr. Fowler's office right away or come back to the hospital. Pending Studies at Discharge: Yes Studies:: Blood cultures finalizing still. Stand-Alone Forms: My [employer], Smoking Cessation Medications and DC Order Prescriptions: Continued carvedilol 25 mg tablet 25 mg PO AMPM RF: 0 aspirin 81 mg Tablet,Delayed Release (Dr/Ec) 81 mg PO DAILY RF: 0 cholecalciferol (vitamin D3) [Vitamin D3] 5,000 unit Tablet 5,000 unit PO DAILY RF: 0 losartan 50 mg Tablet 50 mg PO BID Qty: 30 RF: 0 amlodipine [Norvasc] 5 mg Tablet 5 mg PO QAM Qty: 30 RF: 0 simvastatin 20 mg Tablet 20 mg PO HS Qty: 30 RF: 0 metformin 500 mg tablet extended release 24hr 1,000 mg PO BIDM RF: 0 Changed potassium chloride 10 mEq Tablet Extended Release 20 meq PO DAILY Qty: 0 RF: 0 furosemide [Lasix] 20 mg tablet 40 mg PO DAILY Qty: 0 RF: 0 Discontinued sulfamethoxazole-trimethoprim [Bactrim DS] 800-160 mg tablet 1 tab PO BID Qty: 20 RF: 0 cephalexin [Keflex] 500 mg capsule 500 mg PO QID 10 Days Qty: 40 RF: 0 Discharge Orders: Discharge Order (Routine); Ordered 10/12/19 Ordered By: Yoseph Blankenship Admission Data Admit Date/Time: 10/10/19 05:06 Attending Provider: Yoseph Blankenship Admit Provider: Renetta Beatty Primary Care Provider: Charity Fowler Other Providers: Yoseph Blankenship ; Peyman Shannon Other Interventions: Discharge Summary Assessment (RN) Last Done: 10/12/19 12:55 Coding Level of Care Code D/C Day Management >30 mins Diagnoses Bacteremia R78.81 Acute on chronic diastolic (congestive) heart failure I50.33 Cellulitis of right leg L03.115 DM (diabetes mellitus), type 2 E11.9 Diabetes mellitus care home insulin use: without care home use Diabetes mellitus complication status: without complication Essential (primary) hypertension I10 S/P AVR (aortic valve replacement) Z95.2 Asplenia Q89.01 Hyperlipidemia E78.2 Hyperlipidemia type: mixed hyperlipidemia DVT prophylaxis Z29.9
== END 2019-10-12 13:27 | disposition home health service (06) | DRG 871 ==
LOC: ED 03:05 → SUATTDRO 05:06 → 2N 05:06